=== PATIENT | female | born 1965 | race Caucasian/White ===

== ENCOUNTER 2016-11-23 22:31 | Emergency (ER) | payer OTHER ==
[2016-11-23] MEDS ORDERED: LORazepam 2 MG/ML SYRINGE IM STA (22:32)
[2016-11-23] MEDS ORDERED: diphenhydrAMINE 50 MG/ML 1 ML VIAL IM STA (22:32)
[2016-11-23] MEDS ORDERED: HALOPERIDOL LACTATE 5 MG/ML 1 ML VIAL IM STA (22:32)
--- NOTE | 2016-11-23 22:40 | ED ---
General Adult HPI - General Source: patient, police, EMS, RN notes reviewed Limitations: altered mental status (intoxicated) <Andrea Gorman - Last Filed: 11/24/16 01:15> <Constantin Banda - Last Filed: 11/24/16 09:02> - General Stated complaint: ETOH Time Seen by Provider: 11/23/16 22:31 - History of Present Illness Initial comments: 51-year-old female presenting for acute alcohol intoxication. Per EMS patient was found by her ex- passed out with multiple alcohol bottles by her. Patient drank about 4 - 24 ounce beers Patient arrived awake and alert and very combative. She was restrained by EMS with police escort. Patient with a mask and she was biting and spitting at staff. Patient is very intoxicated on initial exam and unable to provide reliable history. She is using multiple expletives and uncooperative at attempts to try to obtain history. Patient does state that she's had additional stressors recently which are causing her to drink, but she can't elaborate on this. (Andrea Gorman) - Related Data Home Medications Medication Instructions Recorded Confirmed Citalopram Hydrobromide [CeleXA] 40 mg PO DAILY 11/24/16 11/24/16 Diazepam [Valium] 5 mg PO BID PRN 11/24/16 11/24/16 HYDROcodone/APAP 10-325MG [[place] 1 tab PO TID PRN 11/24/16 11/24/16 10-325] Allergies Allergy/AdvReac Type Severity Reaction Status Date / Time No Known Allergies Allergy Verified 11/24/16 08:38 Review of Systems ROS Other: All systems not noted in ROS Statement are negative. <Andrea Gorman - Last Filed: 11/24/16 01:15> ROS Other: All systems not noted in ROS Statement are negative. <Constantin Banda - Last Filed: 11/24/16 09:02> ROS Statement: Those systems with pertinent positive or pertinent negative responses have been documented in the HPI. Past Medical History Past Medical History: Asthma History of Any Multi-Drug Resistant Organisms: None Reported Past Surgical History: Section, Hysterectomy Additional Past Surgical History / Comment(s): pain services procedures Past Anesthesia/Blood Transfusion Reactions: No Reported Reaction Past Psychological History: No Psychological Hx Reported Smoking Status: Current every day smoker Past Alcohol Use History: None Reported Past Drug Use History: None Reported <Andrea Gorman - Last Filed: 11/24/16 01:15> General Exam <Andrea Gorman - Last Filed: 11/24/16 01:15> <Constantin Banda - Last Filed: 11/24/16 09:02> - General Exam Comments Initial Comments: General: Awake and Alert. No acute distress. Appears intoxicated. Combative and uncooperative. Eyes: NIKKI, No scleral icterus. HENT: Atraumatic, normocephalic. Mucous membranes moist. Trachea midline. Neck: The neck is supple, there is no JVD. Cardiovascular: Regular rate and rhythm. No murmur, rub, or gallop is appreciated. Distal pulses intact. Respiratory: Lungs are clear to auscultation bilaterally. No wheezes, rales, rhonchi. No respiratory distress. Gastrointestinal: Soft, Nontender. No rebound or guarding. Non-distended. Musculoskeletal: No tenderness. Normal ROM. No gross deformity. No strength deficits. Neurological: There are no obvious motor or sensory deficits. Moves all extremities. Skin: Skin is warm and dry and no rashes or lesions are noted. Psychiatric: Patient is angry, labile affect. Appears intoxicated. (Andrea Gorman) Procedures - Restraint - Face to Face Restraint Occurrence 1 Patient's Immediate Situation: Endangers self safety, Endangers others' safety, Endangers staff safety, Violent behavior Patient's Reaction to the Intervention: Aggressive, Combative Patient's Medical & Behavioral Condition: Awake, Other (see comment) ( Intoxicated) Need to Continue or Terminate Restraint or Seclusion: Continue Face to Face Eval of Restraint Date: 11/23/16 Face to Face Eval of Restraint Time: 22:35 <Andrea Gorman - Last Filed: 11/24/16 01:15> <Constantin Banda - Last Filed: 11/24/16 09:02> - Restraint - Face to Face Restraint Occurrence 1 Patient's Immediate Situation - Comment: Patient arrived for acute alcohol intoxication, violent, biting and spitting at staff. (Andrea Gorman) Medical Decision Making - Lab Data Result diagrams: 11/23/16 23:25 11/23/16 23:25 <Andrea Gorman - Last Filed: 11/24/16 01:15> - Lab Data Result diagrams: 11/23/16 23:25 11/23/16 23:25 <Constantin Banda - Last Filed: 11/24/16 09:02> - Medical Decision Making 51-year-old female presenting for acute alcohol intoxication. Uncertain history as patient is combative and uncooperative with initial exam. She required chemical and physical restraints upon arrival. Face to face documentation done. Police and security and EMS were present during this initial evaluation. Patient with very labile affect during initial discussion. She did state at one point that she is very sad because of multiple stressors in her life recently. Plan for lab work. Lab work with stable CBC. BMP with mild abnormalities likely consistent with chronic alcohol abuse. LFTs are grossly stable. Tylenol and salicylates are negative. Patient was reevaluated and sleeping comfortably, easily arousable. Leather restraints were removed. Patient medically cleared when sober around 8 AM. Patient signed out to overnight physician pending sobriety and behavioral health evaluation when sober. (Andrea Gorman) Fidgeting female seen and evaluated, no LOC unable to call, not homicidal or suicidal, will be discharged home (Constantin Banda) - Lab Data Lab Results 11/23/16 11/23/16 Range/Units 23:25 23:25 WBC 8.5 (3.8-10.6) k/uL RBC 5.07 (3.80-5.40) m/uL Hgb 15.2 (11.4-16.0) gm/dL Hct 46.0 (34.0-46.0) % MCV 90.6 (80.0-100.0) fL MCH 30.0 (25.0-35.0) pg MCHC 33.2 (31.0-37.0) g/dL RDW 13.0 (11.5-15.5) % Plt Count 298 (150-450) k/uL Neutrophils % 55 % Lymphocytes % 36 % Monocytes % 4 % Eosinophils % 2 % Basophils % 1 % Neutrophils # 4.7 (1.3-7.7) k/uL Lymphocytes # 3.0 (1.0-4.8) k/uL Monocytes # 0.4 (0-1.0) k/uL Eosinophils # 0.1 (0-0.7) k/uL Basophils # 0.1 (0-0.2) k/uL Sodium 149 H (137-145) mmol/L Potassium 3.3 L (3.5-5.1) mmol/L Chloride 114 H (98-107) mmol/L Carbon Dioxide 19 L (22-30) mmol/L Anion Gap 16 mmol/L BUN 8 (7-17) mg/dL Creatinine 0.70 (0.52-1.04) mg/dL Est GFR (MDRD) Af Amer >60 (>60 ml/min/1.73 sqM) Est GFR (MDRD) Non-Af >60 (>60 ml/min/1.73 sqM) Glucose 114 H (74-99) mg/dL Calcium 9.4 (8.4-10.2) mg/dL Total Bilirubin 0.4 (0.2-1.3) mg/dL AST 40 H (14-36) U/L ALT 38 (9-52) U/L Alkaline Phosphatase 107 (38-126) U/L Total Protein 7.2 (6.3-8.2) g/dL Albumin 4.2 (3.5-5.0) g/dL Salicylates <1.0 mg/dL Acetaminophen <10.0 ug/mL Serum Alcohol 248 mg/dL Disposition <Andrea Gorman A - Last Filed: 11/24/16 01:15> <Constantin Banda - Last Filed: 11/24/16 09:02> Clinical Impression: Acute alcohol intoxication Disposition: HOME SELF-CARE Condition: Good Instructions: Alcohol Intoxication (ED) Referrals: Shaun Rodriguez MD [Primary Care Provider] - 1-2 days
[2016-11-23 23:34] LABS: Basophils # (A) 0.1 k/uL (0-0.2); Basophils % (A) 1 %; CH 30.8; CHCM 34.1; Eosinophils # (A) 0.1 k/uL (0-0.7); Eosinophils % (A) 2 %; HGB 15.2 gm/dL (11.4-16.0); Luc # (Auto) 0.16; Luc % (Auto) 2; Lymphocytes % (A) 36 %; MCHC 33.2 g/dL (31.0-37.0); MCV 90.6 fL (80.0-100.0); Mean Platelet Volume 8.2; Monocytes # (A) 0.4 k/uL (0-1.0); Monocytes % (A) 4 %; Neutrophils # (A) 4.7 k/uL (1.3-7.7); Neutrophils % (A) 55 %; RBC 5.07 m/uL (3.80-5.40); WBC 8.5 k/uL (3.8-10.6); WBC (Perox) 8.03
[2016-11-23 23:48] LABS: ALT 38 U/L (9-52); AST 40 U/L (14-36); Acetaminophen <10.0 ug/mL; Alkaline Phosphatase 107 U/L (38-126); Anion Gap 16 mmol/L; Blood Urea Nitrogen 8 mg/dL (7-17); Calcium 9.4 mg/dL (8.4-10.2); Carbon Dioxide 19 mmol/L (22-30); Chloride 114 mmol/L (98-107); Glucose 114 mg/dL (74-99); Non-African American GFR(MDRD) >60 (>60 ml/min/1.73 sqM); Potassium 3.3 mmol/L (3.5-5.1); Salicylate <1.0 mg/dL; Sodium 149 mmol/L (137-145); Total Bilirubin 0.4 mg/dL (0.2-1.3); Total Protein 7.2 g/dL (6.3-8.2)
[2016-11-23 23:50] LABS: Alcohol 248 mg/dL
[2016-11-24 08:34] VITALS: BP 108/60; PULSE 90; RESP 17; TEMP 98.1
== END 2016-11-24 10:26 | disposition home or self-care (01) ==
LOC: EC 22:31
DX: F10.120 Alcohol abuse with intoxication, uncomplicated (principal); F17.200 Nicotine dependence, unspecified, uncomplicated; Y90.8 Blood alcohol level of 240 mg/100 ml or more; Z79.899 Other long term (current) drug therapy
CPT/HCPCS: 36415; 80053; 85025; 83520 ×2; 80320; 99285; 96372 ×3; J2060; J1200; J1630

== ENCOUNTER 2017-01-07 22:21 | Emergency (ER) | payer OTHER ==
[2017-01-07 22:29] VITALS: TEMP 96.6
--- NOTE | 2017-01-07 22:50 | ED ---
General Adult HPI - General Chief complaint: Allergic Reaction Stated complaint: Allergic Reaction Time Seen by Provider: 01/07/17 22:25 Source: patient, EMS, RN notes reviewed, old records reviewed Mode of arrival: EMS - History of Present Illness Initial comments: This is a 51-year-old female here for evaluation. Patient will see her for possible ALLERGIC reaction. Patient took amoxicillin tonight for ear infection. This soon after she became dizzy. At this time patient's symptoms seem improved. No feeling of lightheadedness or pass out, no shortness of breath no facial swelling, no rash, no feelings of throat swelling - Related Data Home Medications Medication Instructions Recorded Confirmed Citalopram Hydrobromide [CeleXA] 40 mg PO DAILY 11/24/16 01/07/17 HYDROcodone/APAP 10-325MG [[place] 1 tab PO BID PRN 11/24/16 01/07/17 10-325] Albuterol Inhaler [Ventolin Hfa 1 - 2 puff INHALATION RT-Q6H PRN 01/07/17 Inhaler] Previous Rx's Medication Instructions Recorded Clarithromycin [Biaxin] 500 mg PO Q12HR #14 tablet 01/07/17 Allergies Allergy/AdvReac Type Severity Reaction Status Date / Time amoxicillin Allergy Dyspnea Verified 01/07/17 22:31 Review of Systems ROS Statement: Those systems with pertinent positive or pertinent negative responses have been documented in the HPI. ROS Other: All systems not noted in ROS Statement are negative. Past Medical History Past Medical History: Asthma History of Any Multi-Drug Resistant Organisms: None Reported Past Surgical History: Section, Hysterectomy Additional Past Surgical History / Comment(s): pain services procedures Past Anesthesia/Blood Transfusion Reactions: No Reported Reaction Past Psychological History: Depression Smoking Status: Current some day smoker Past Alcohol Use History: None Reported Past Drug Use History: None Reported General Exam General appearance: alert, in no apparent distress Head exam: Present: atraumatic, normocephalic, normal inspection Eye exam: Present: normal appearance, PERRL, EOMI. Absent: scleral icterus, conjunctival injection, periorbital swelling ENT exam: Present: normal exam, mucous membranes moist Neck exam: Present: normal inspection. Absent: tenderness, meningismus, lymphadenopathy Respiratory exam: Present: normal lung sounds bilaterally. Absent: respiratory distress, wheezes, rales, rhonchi, stridor Cardiovascular Exam: Present: regular rate, normal rhythm, normal heart sounds. Absent: systolic murmur, diastolic murmur, rubs, gallop, clicks GI/Abdominal exam: Present: soft, normal bowel sounds. Absent: distended, tenderness, guarding, rebound, rigid Extremities exam: Present: normal inspection, full ROM, normal capillary refill. Absent: tenderness, pedal edema, joint swelling, calf tenderness Back exam: Present: normal inspection Neurological exam: Present: alert, oriented X3, CN II-XII intact Psychiatric exam: Present: normal affect, normal mood Skin exam: Present: warm, dry, intact, normal color. Absent: rash Course Vital Signs 01/07/17 22:22 Temperature 96.6 F L Pulse Rate 85 Respiratory 20 Rate Blood Pressure 95/58 O2 Sat by Pulse 96 Oximetry - Reevaluation(s) Reevaluation #1: 01/07/17 23:11 Patient's vital signs are normal, stable, will switch patient's antibiotic and discharged home Medical Decision Making - Medical Decision Making 51 female here with ear infection, likely ALLERGIC reaction or adverse effects to amoxicillin, will switch antibiotic and patient can be discharged home Disposition Clinical Impression: Allergic reaction, Medication reaction, Adverse reaction to drug Disposition: HOME SELF-CARE Condition: Good Instructions: Dizziness (ED) Prescriptions: Clarithromycin [Biaxin] 500 mg PO Q12HR #14 tablet Referrals: Shaun Rodriguez MD [Primary Care Provider] - 1-2 days
[2017-01-07] MEDS ORDERED: FAMOTIDINE 20 MG/2 ML VIAL IV STA (23:06)
[2017-01-07] MEDS ORDERED: CLARITHROMYCIN 500 MG TAB PO STA (23:06)
[2017-01-07] MEDS ORDERED: methylPREDNISolone SOD SUCCI 125 MG/2 ML VIAL IV STA (23:06)
[2017-01-07] MEDS ORDERED: SODIUM CHLORIDE 0.9% 500 ML IV STA (23:06)
[2017-01-07] MEDS ORDERED: diphenhydrAMINE 50 MG/ML 1 ML VIAL IVP STA (23:06)
[2017-01-07 23:41] VITALS: RESP 18
[2017-01-08 00:06] VITALS: BP 113/61; PULSE 83
== END 2017-01-08 00:28 | disposition home or self-care (01) ==
LOC: EC 22:21
DX: R42 Dizziness and giddiness (principal); T36.0X5A Adverse effect of penicillins, initial encounter; F32.9 Major depressive disorder, single episode, unspecified; F17.200 Nicotine dependence, unspecified, uncomplicated; Z79.899 Other long term (current) drug therapy; Z88.0 Allergy status to penicillin
CPT/HCPCS: 99284; 96374; 96375 ×2; 96361; J1200; J2930

== ENCOUNTER → 2017-05-17 | Outpatient (CLI) | payer OTHER ==
--- NOTE | 2017-05-17 14:00 | XR ---
Thoracic spine HISTORY: Pain 3 views of the thoracic spine on 4 images correlated to prior exam 10/18/2009 Mild spinal curvature is again noted. Surgical clips present in the right upper quadrant. Multilevel thoracic spondylosis is present. Disc spaces are maintained. Thoracic vertebral bodies show preserved height and bone mineralization. IMPRESSION: Spinal curvature, thoracic spondylosis, findings similar to prior exam
== END | disposition home or self-care (01) ==
LOC: RADXRMAIN 11:25
PROVIDERS: ATTEND Family Medicine
DX: M47.814 Spondylosis without myelopathy or radiculopathy, thoracic region (principal); M43.8X4 Other specified deforming dorsopathies, thoracic region
CPT/HCPCS: 72072

== ENCOUNTER 2017-07-25 17:30 | Emergency (ER) | payer OTHER ==
[2017-07-25 18:09] LABS: Basophils # (A) 0.1 k/uL (0-0.2); Basophils % (A) 1 %; Eosinophils # (A) 0.3 k/uL (0-0.7); Eosinophils % (A) 3 %; HCT 41.1 % (34.0-46.0); Lymphocytes % (A) 32 %; MCH 30.2 pg (25.0-35.0); MCV 88.7 fL (80.0-100.0); Mean Platelet Volume 7.9; Monocytes # (A) 0.3 k/uL (0-1.0); Monocytes % (A) 3 %; Neutrophils # (A) 5.4 k/uL (1.3-7.7); Neutrophils % (A) 58 %; Platelet Count 303 k/uL (150-450); RBC 4.64 m/uL (3.80-5.40); RDW 13.2 % (11.5-15.5); WBC 9.3 k/uL (3.8-10.6)
[2017-07-25 18:19] LABS: ALT 40 U/L (9-52); AST 61 U/L (14-36); Alkaline Phosphatase 110 U/L (38-126); Amylase 58 U/L (30-110); Anion Gap 9 mmol/L; Blood Urea Nitrogen 13 mg/dL (7-17); Carbon Dioxide 27 mmol/L (22-30); Chloride 108 mmol/L (98-107); Glucose 124 mg/dL (74-99); Lipase 71 U/L (23-300); Potassium 3.9 mmol/L (3.5-5.1); Sodium 144 mmol/L (137-145); Total Bilirubin 0.5 mg/dL (0.2-1.3); Total Protein 6.7 g/dL (6.3-8.2)
--- NOTE | 2017-07-25 18:20 | XR ---
EXAMINATION TYPE: XR chest 2V DATE OF EXAM: 07/25/2017 COMPARISON: 10/28/2009 HISTORY: Chest pain TECHNIQUE: Frontal and lateral views of the chest are obtained. FINDINGS: There is no focal air space opacity, pleural effusion, or pneumothorax seen. The cardiac silhouette size is within normal limits. The osseous structures are intact. IMPRESSION: No acute cardiopulmonary process.
[2017-07-25 18:21] LABS: Creatine Kinase 64 U/L (30-135)
[2017-07-25 18:32] LABS: D-Dimer 0.35 mg/L FEU (<0.60)
[2017-07-25 18:33] LABS: Creatine Kinase MB 0.4 ng/mL (0.0-2.4); Troponin I <0.012 ng/mL (0.000-0.034)
[2017-07-25 18:35] VITALS: BP 130/56; PULSE 64; RESP 17
[2017-07-25 18:36] LABS: INR 1.3 (<1.2); Partial Thromboplastin Time 24.3 sec (22.0-30.0); Prothrombin Time 12.1 sec (9.0-12.0)
--- NOTE | 2017-07-25 19:20 | ED ---
General Adult HPI - General Chief complaint: Chest Pain Stated complaint: Chest presure Time Seen by Provider: 07/25/17 17:53 Source: patient, RN notes reviewed, old records reviewed Mode of arrival: ambulatory Limitations: no limitations - History of Present Illness Initial comments: 51-year-old female presents for evaluation of back pain, chest pain, and bilateral ankle pain. Patient has history of chronic back pain. She has a pain specialist who prescribes her [place] for this pain. She has been taking her [place] with minimal relief. Today patient developed back pain that traveled to her chest. Denied any nausea or vomiting. Denies shortness of breath. Denied fever or cough. Patient describes the pain as chest and epigastric pain. She does have history of gastric reflux and takes medication for this on occasion. Patient is also complaining of bilateral ankle pain which is been present for several weeks. No swelling. No calf tenderness. No lower extremity weakness. No loss of bowel or bladder function. - Related Data Home Medications Medication Instructions Recorded Confirmed Citalopram Hydrobromide [CeleXA] 40 mg PO DAILY 11/24/16 07/25/17 HYDROcodone/APAP 10-325MG [[place] 1 tab PO TID 11/24/16 07/25/17 10-325] Albuterol Inhaler [Ventolin Hfa 1 - 2 puff INHALATION RT-Q6H PRN 01/07/17 Inhaler] Ibuprofen [Motrin] 800 mg PO TID PRN 07/25/17 07/25/17 Omeprazole [PriLOSEC] 20 mg PO AC-BRKFST 07/25/17 07/25/17 Allergies Allergy/AdvReac Type Severity Reaction Status Date / Time amoxicillin Allergy Dyspnea Verified 07/25/17 18:34 sulfamethoxazole Allergy Unknown Verified 07/25/17 18:34 [From Bactrim] trimethoprim [From Bactrim] Allergy Unknown Verified 07/25/17 18:34 Review of Systems ROS Statement: Those systems with pertinent positive or pertinent negative responses have been documented in the HPI. ROS Other: All systems not noted in ROS Statement are negative. Past Medical History Past Medical History: Asthma Additional Past Medical History / Comment(s): DDD, chronic back pain History of Any Multi-Drug Resistant Organisms: None Reported Past Surgical History: Section, Hysterectomy Additional Past Surgical History / Comment(s): pain services procedures Past Anesthesia/Blood Transfusion Reactions: No Reported Reaction Past Psychological History: Depression Smoking Status: Current some day smoker Past Alcohol Use History: None Reported Past Drug Use History: None Reported General Exam Limitations: no limitations General appearance: alert, in no apparent distress Head exam: Present: atraumatic, normocephalic Eye exam: Present: normal appearance, PERRL ENT exam: Present: normal exam, mucous membranes dry Neck exam: Present: normal inspection. Absent: tenderness, meningismus Respiratory exam: Present: normal lung sounds bilaterally. Absent: respiratory distress, wheezes Cardiovascular Exam: Present: regular rate, normal rhythm, normal heart sounds. Absent: rubs GI/Abdominal exam: Present: soft. Absent: distended, tenderness, guarding, rebound Extremities exam: Present: normal inspection, normal capillary refill, other ( Bilateral DP and PT pulses symmetric). Absent: pedal edema, joint swelling, calf tenderness Back exam: Present: tenderness (Thoracic paraspinal tenderness) Neurological exam: Present: alert, oriented X3, CN II-XII intact. Absent: motor sensory deficit Psychiatric exam: Present: normal affect, normal mood Skin exam: Present: warm, dry, intact. Absent: cyanosis, diaphoretic Course Vital Signs 07/25/17 07/25/17 17:32 18:34 Temperature 98.3 F Pulse Rate 81 64 Respiratory 18 17 Rate Blood Pressure 142/65 130/56 O2 Sat by Pulse 100 98 Oximetry EKG Findings - EKG Comments: EKG Findings:: EKG shows normal sinus rhythm, ventricular rate 68, NM 156, castration 96, QTC 414, no ST segment elevation, no T-wave abnormality no signs of acute ischemia Medical Decision Making - Medical Decision Making 51-year-old female presenting with multiple pain complaints. She does have history of chronic pain some of these complains 2. Be chronic in nature. Main complaints are back pain, epigastric and chest pain as well as bilateral ankle pain which is been present for several weeks. On examination, there is no swelling or signs of infection the ankles. Chest is clear, pulses are symmetric. No epigastric or abdominal tenderness. Vitals are stable. White blood cell count 9.3, hemoglobin 14.0, d-dimer is negative at 0.35. Lites within normal limits. Symptoms have been present for several days to weeks and troponin is negative. Lipase is normal 71. Chest x-ray shows no acute findings. Symptoms likely related to chronic pain. She does have a contract with pain specialist. She will follow-up with his physician as well as her primary care physician. - Lab Data Result diagrams: 07/25/17 17:55 07/25/17 17:55 Lab Results 07/25/17 07/25/17 07/25/17 Range/Units 17:55 17:55 17:55 WBC 9.3 (3.8-10.6) k/uL RBC 4.64 (3.80-5.40) m/uL Hgb 14.0 (11.4-16.0) gm/dL Hct 41.1 (34.0-46.0) % MCV 88.7 (80.0-100.0) fL MCH 30.2 (25.0-35.0) pg MCHC 34.0 (31.0-37.0) g/dL RDW 13.2 (11.5-15.5) % Plt Count 303 (150-450) k/uL Neutrophils % 58 % Lymphocytes % 32 % Monocytes % 3 % Eosinophils % 3 % Basophils % 1 % Neutrophils # 5.4 (1.3-7.7) k/uL Lymphocytes # 3.0 (1.0-4.8) k/uL Monocytes # 0.3 (0-1.0) k/uL Eosinophils # 0.3 (0-0.7) k/uL Basophils # 0.1 (0-0.2) k/uL PT (9.0-12.0) sec INR (<1.2) APTT (22.0-30.0) sec D-Dimer (<0.60) mg/L FEU Sodium 144 (137-145) mmol/L Potassium 3.9 (3.5-5.1) mmol/L Chloride 108 H (98-107) mmol/L Carbon Dioxide 27 (22-30) mmol/L Anion Gap 9 mmol/L BUN 13 (7-17) mg/dL Creatinine 0.69 (0.52-1.04) mg/dL Est GFR (MDRD) Af Amer >60 (>60 ml/min/1.73 sqM) Est GFR (MDRD) Non-Af >60 (>60 ml/min/1.73 sqM) Glucose 124 H (74-99) mg/dL Calcium 10.0 (8.4-10.2) mg/dL Magnesium 2.0 (1.6-2.3) mg/dL Total Bilirubin 0.5 (0.2-1.3) mg/dL AST 61 H (14-36) U/L ALT 40 (9-52) U/L Alkaline Phosphatase 110 (38-126) U/L Total Creatine Kinase 64 (30-135) U/L CK-MB (CK-2) 0.4 (0.0-2.4) ng/mL CK-MB (CK-2) Rel Index 0.6 Troponin I <0.012 (0.000-0.034) ng/mL NT-Pro-B Natriuret Pep pg/mL Total Protein 6.7 (6.3-8.2) g/dL Albumin 4.0 (3.5-5.0) g/dL Amylase 58 (30-110) U/L Lipase 71 (23-300) U/L 07/25/17 07/25/17 Range/Units 17:55 17:55 WBC (3.8-10.6) k/uL RBC (3.80-5.40) m/uL Hgb (11.4-16.0) gm/dL Hct (34.0-46.0) % MCV (80.0-100.0) fL MCH (25.0-35.0) pg MCHC (31.0-37.0) g/dL RDW (11.5-15.5) % Plt Count (150-450) k/uL Neutrophils % % Lymphocytes % % Monocytes % % Eosinophils % % Basophils % % Neutrophils # (1.3-7.7) k/uL Lymphocytes # (1.0-4.8) k/uL Monocytes # (0-1.0) k/uL Eosinophils # (0-0.7) k/uL Basophils # (0-0.2) k/uL PT 12.1 H (9.0-12.0) sec INR 1.3 H (<1.2) APTT 24.3 (22.0-30.0) sec D-Dimer 0.35 (<0.60) mg/L FEU Sodium (137-145) mmol/L Potassium (3.5-5.1) mmol/L Chloride (98-107) mmol/L Carbon Dioxide (22-30) mmol/L Anion Gap mmol/L BUN (7-17) mg/dL Creatinine (0.52-1.04) mg/dL Est GFR (MDRD) Af Amer (>60 ml/min/1.73 sqM) Est GFR (MDRD) Non-Af (>60 ml/min/1.73 sqM) Glucose (74-99) mg/dL Calcium (8.4-10.2) mg/dL Magnesium (1.6-2.3) mg/dL Total Bilirubin (0.2-1.3) mg/dL AST (14-36) U/L ALT (9-52) U/L Alkaline Phosphatase (38-126) U/L Total Creatine Kinase (30-135) U/L CK-MB (CK-2) (0.0-2.4) ng/mL CK-MB (CK-2) Rel Index Troponin I (0.000-0.034) ng/mL NT-Pro-B Natriuret Pep 45 pg/mL Total Protein (6.3-8.2) g/dL Albumin (3.5-5.0) g/dL Amylase (30-110) U/L Lipase (23-300) U/L Disposition Clinical Impression: Chronic back pain, Chest pain Disposition: HOME SELF-CARE Condition: Good Instructions: Chronic Back Pain (ED), Chest Pain (ED) Referrals: Shaun Rodriguez MD [Primary Care Provider] - 1-2 days Time of Disposition: 19:16
[2017-07-25 19:27] VITALS: TEMP 98.6
== END 2017-07-25 19:26 | disposition home or self-care (01) ==
LOC: EC 17:30
DX: R07.89 Other chest pain (principal); M54.9 Dorsalgia, unspecified; G89.29 Other chronic pain; R10.13 Epigastric pain; M25.572 Pain in left ankle and joints of left foot; M25.571 Pain in right ankle and joints of right foot; F32.9 Major depressive disorder, single episode, unspecified; F17.200 Nicotine dependence, unspecified, uncomplicated; Z79.899 Other long term (current) drug therapy; Z79.891 Long term (current) use of opiate analgesic; Z88.0 Allergy status to penicillin; Z88.2 Allergy status to sulfonamides
CPT/HCPCS: 36415; 71046; 80053; 82150; 82550; 82553; 83690; 83735; 83880; 84484; 85025; 85379; 85610; 85730; 93005; 99285

== ENCOUNTER 2018-04-15 22:08 | Emergency (ER) | payer OTHER ==
[2018-04-15 22:18] VITALS: BP 122/78; PULSE 77; RESP 18; TEMP 98
--- NOTE | 2018-04-15 23:16 | ED ---
Eye Problem HPI - General Chief complaint: Eye Problems Stated complaint: Rt eye pain Time Seen by Provider: 04/15/18 22:42 Source: patient Mode of arrival: ambulatory Limitations: no limitations - History of Present Illness Initial comments: 52-year-old female denies past medical history presents chief complaint of right upper lid erythema. Patient states that she noticed right lip upper lid erythema and less tender to palpation earlier today. She presents for evaluation. Patient denies any trauma or injury to the right eye, eye discharge , visual changes, photophobia, foreign body sensation, diplopia, conjunctival injection, fever, chills, night sweats, headache or any other associated symptoms. Upon arrrival pt VS stable. Pt appears well. Remainder of ROS (-) including shortness of breath, chest pain, back pain, abdominal pain, nausea or vomiting, numbness or tingling, dysuria or hematuria, constipation or diarrhea, or any other complaints. - Related Data Home Medications Medication Instructions Recorded Confirmed Citalopram Hydrobromide [CeleXA] 40 mg PO DAILY 11/24/16 07/25/17 HYDROcodone/APAP 10-325MG [[place] 1 tab PO TID 11/24/16 07/25/17 10-325] Albuterol Inhaler [Ventolin Hfa 1 - 2 puff INHALATION RT-Q6H PRN 01/07/17 Inhaler] Ibuprofen [Motrin] 800 mg PO TID PRN 07/25/17 07/25/17 Omeprazole [PriLOSEC] 20 mg PO AC-BRKFST 07/25/17 07/25/17 Previous Rx's Medication Instructions Recorded Clindamycin [Cleocin] 450 mg PO Q8H 7 Days #21 capsule 04/15/18 Allergies Allergy/AdvReac Type Severity Reaction Status Date / Time amoxicillin Allergy Dyspnea Verified 04/15/18 22:18 sulfamethoxazole Allergy Unknown Verified 04/15/18 22:18 [From Bactrim] trimethoprim [From Bactrim] Allergy Unknown Verified 04/15/18 22:18 Review of Systems ROS Statement: Those systems with pertinent positive or pertinent negative responses have been documented in the HPI. ROS Other: All systems not noted in ROS Statement are negative. Constitutional: Denies: fever, chills, night sweats Eyes: Reports: as per HPI. Denies: eye discharge, vision change ENT: Denies: ear pain, throat pain Respiratory: Denies: cough, dyspnea Cardiovascular: Denies: chest pain, palpitations, dyspnea on exertion, orthopnea Endocrine: Denies: fatigue Gastrointestinal: Denies: abdominal pain, nausea, diarrhea, constipation Genitourinary: Denies: urgency, dysuria Musculoskeletal: Denies: back pain Skin: Denies: rash Past Medical History Past Medical History: Asthma Additional Past Medical History / Comment(s): DDD, chronic back pain History of Any Multi-Drug Resistant Organisms: None Reported Past Surgical History: Section, Hysterectomy Additional Past Surgical History / Comment(s): pain services procedures Past Anesthesia/Blood Transfusion Reactions: No Reported Reaction Past Psychological History: Depression Smoking Status: Current every day smoker Past Alcohol Use History: None Reported Past Drug Use History: None Reported General Exam - General Exam Comments Initial Comments: General: The patient is awake and alert, in no distress, and does not appear acutely ill. Eye: Pupils are equal, round and reactive to light, extra-ocular movements are intact. No pain with EOM. No nystagmus. No conjugate gaze or APD. No photophobia. VF intact to confrontation b/l. There is normal conjunctiva bilaterally. No signs of icterus. Ears, nose, mouth and throat: There is very mild swelling and erythema of the right upper eyelid. Pain to palpation. Small internal hordeolum upon right upper internal lid exam. There are moist mucous membranes and no oral lesions. Neck: The neck is supple, there is no tenderness or JVD. Cardiovascular: There is a regular rate and rhythm. No murmur, rub or gallop is appreciated. Respiratory: Lungs are clear to auscultation, respirations are non-labored, breath sounds are equal. No wheezes, stridor, rales, or rhonchi. Musculoskeletal: Normal ROM, no tenderness. Strength 5/5. Sensation intact. Pulses equal bilaterally 2+. Neurological: A&O x 3. CN II-XII intact, There are no obvious motor or sensory deficits. Coordination appears grossly intact. Speech is normal. Skin: Skin is warm and dry and no rashes or lesions are noted. Psychiatric: Cooperative, appropriate mood & affect, normal judgment. Limitations: no limitations Course Vital Signs 04/15/18 22:16 Temperature 98.0 F Pulse Rate 77 Respiratory 18 Rate Blood Pressure 122/78 O2 Sat by Pulse 98 Oximetry Medical Decision Making - Medical Decision Making PE consistent with internal hordeolum there is some outer upper lid erythema/ edema concerning risk for infection, possible early periorbital cellulitis. No signs or symptoms concerning for orbital cellulitis at this time. Pt given prescription for antibiotics if erythema spreads for treatment of possible periorbital cellulitis, however I feel PE findings most consistent with internal hordeloum. Warm compresses discussed with patient. Return parameters discussed in detail patient and . Case discussed with Dr. Polo. At this time I feel pt is stable for d/c with primary care f/u in 1-2 days. Pt denied questions at this time d/c in stable condition. Disposition Clinical Impression: Hordeolum internum right upper eyelid Disposition: HOME SELF-CARE Condition: Good Additional Instructions: Please use hot compresses for eye, three times a day. If redness appears to be worsening in the next 1-2 days please take medication as discussed. Please follow-up with family doctor in the next 2 days. Please return to emergency room if the symptoms increase or worsen or for any other concerns. Prescriptions: Clindamycin [Cleocin] 450 mg PO Q8H 7 Days #21 capsule Is patient prescribed a controlled substance at d/c from ED?: No Referrals: Shaun Rodriguez MD [Primary Care Provider] - 1-2 days Time of Disposition: 23:16
== END 2018-04-15 23:25 | disposition home or self-care (01) ==
LOC: EC 22:08
DX: H00.021 Hordeolum internum right upper eyelid (principal); J45.909 Unspecified asthma, uncomplicated; F32.9 Major depressive disorder, single episode, unspecified; F17.200 Nicotine dependence, unspecified, uncomplicated; Z79.891 Long term (current) use of opiate analgesic; Z79.899 Other long term (current) drug therapy; Z88.0 Allergy status to penicillin; Z88.2 Allergy status to sulfonamides
CPT/HCPCS: 99283

== ENCOUNTER → 2018-12-14 | Outpatient (CLI) | payer OTHER ==
--- NOTE | 2018-12-15 17:37 | MR ---
EXAMINATION TYPE: MR lumbar spine wo con DATE OF EXAM: 12/14/2018 COMPARISON: None HISTORY: Pain, spondylolithesis TECHNIQUE: Multiplanar, multisequence images of the lumbar spine were acquired. FINDINGS: Multilevel disc desiccation is seen with degenerative endplate change. Small anterior osteo phytes are present. Facet arthropathy is also present at multiple levels as well as ligamentum flavum buckling. Incidentally noted pancreatic ductal dilatation up to 4 mm. MRCP could be performed for fu rther evaluation. Pancreas and pancreatic duct are not entirely visualized. There appears to be commo n bile duct dilatation as well as to 1.2 cm. And indeterminant T2 hyperintense and T1 isointense righ t upper pole renal lesion measures 8 mm and is too small to accurately characterize although could be better characterized with three-phase enhanced CT. There is a T1 hypointense and T2 hypointense lesion of the L3 vertebral body with some internal T1 hy perintensity therefore this likely represents an atypical hemangioma as this is not markedly hypointe nse on T1. Slightly mottled bone marrow signal is seen throughout although within normal limits. Conu s medullaris is unremarkable terminating at L2. Annular tear is seen at L2-L3. Annular tear is also s een at L1-L2. Vertebral body heights are maintained. There is very minimal retrolisthesis of L2 on L3 and L3 on L4. L1-L2: There is a central annular tear with broad-based disc bulge and mild facet arthropathy. No res ultant spinal canal stenosis nor neural foraminal narrowing. L2-L3: There is a broad-based disc bulge, central annular tear, and facet arthropathy resulting in ve ry minimal bilateral neural foraminal narrowing without spinal canal stenosis. L3-L4: There is a broad-based disc bulge and facet arthropathy. The disc bulges slightly right eccent bassem resulting in mild to moderate right neural foraminal narrowing and mild left neural foraminal jo ann rowing. No spinal canal stenosis. L4-L5: There is pronounced facet arthropathy, ligamentum flavum buckling, and a large broad-based dis c bulge creating severe spinal canal stenosis that is on axial T2 nonfat sat image 8 as there is narr owing of the spinal canal and both the anterior and transverse dimension. These findings also result in mild to moderate bilateral neural foraminal narrowing. There is buckling of the distal nerve root secondary to the severe spinal canal stenosis. L5-S1: There is a left eccentric broad-based disc bulge and left lateral disc herniation as well as f acet arthropathy creating severe left neural foraminal narrowing and exiting L5 nerve root impingemen t and mild right neural foraminal narrowing with the disc fragment abutting the exiting nerve root. T here is also ligamentum flavum buckling and facet arthropathy narrowing the spinal canal in a transve rse dimension mildly. IMPRESSION: 1. Left lateral disc herniation and eccentric disc bulge at L5-S1 in combination with facet arthropat hy and ligamentum flavum buckling create severe left neural foraminal narrowing and L5 nerve root imp ingement as well as mild spinal canal stenosis in a transverse dimension. 2. Broad-based disc bulge, ligamentum flavum buckling and facet arthropathy creates severe spinal can al stenosis at L4-L5 with nerve root buckling and mild to moderate bilateral neural foraminal narrowi ng. 3. Multilevel malalignment is likely on a degenerative basis with no bone marrow edema or vertebral b enrique height loss. 4. Degenerative disc disease throughout the lumbar spine is moderate with annular tear is seen at L1- L2 and L2-L3 and multilevel variable degree neural foraminal narrowing. 5. Incidentally seen mild pancreatic ductal prominence and common bile duct dilatation. MRCP could fu rther evaluate these findings.
== END | disposition home or self-care (01) ==
LOC: RADMRIMAIN 18:53
PROVIDERS: ATTEND Neurological Surgery
DX: M48.061 Spinal stenosis, lumbar region without neurogenic claudication (principal); M48.07 Spinal stenosis, lumbosacral region; M51.26 Other intervertebral disc displacement, lumbar region; M51.27 Other intervertebral disc displacement, lumbosacral region; M46.96 Unspecified inflammatory spondylopathy, lumbar region; M46.97 Unspecified inflammatory spondylopathy, lumbosacral region; M24.28 Disorder of ligament, vertebrae
CPT/HCPCS: 72148

== ENCOUNTER → 2019-02-01 | Outpatient (CLI) | payer OTHER ==
--- NOTE | 2019-02-01 10:33 | US ---
EXAMINATION TYPE: US venous doppler duplex LE RT DATE OF EXAM: 02/01/2019 10:08 AM COMPARISON: NONE CLINICAL HISTORY: M79.604 Pain in right leg. Pain right leg for 3 weeks SIDE PERFORMED: right TECHNIQUE: The lower extremity deep venous system is examined utilizing real time linear array sonog leti with graded compression, doppler sonography and color-flow sonography. VESSELS IMAGED: External Iliac Vein (EIV) Common Femoral Vein Deep Femoral Vein Greater Saphenous Vein * Femoral Vein Popliteal Vein Small Saphenous Vein * Proximal Calf Veins (* superficial vessels) Right Leg: No evidence of DVT Grayscale, color doppler, spectral doppler imaging performed of the deep veins of the right lower ext remity. There is normal flow, compressibility, vascular waveforms. IMPRESSION: No ultrasound evidence for acute DVT in the right lower extremity.
== END | disposition home or self-care (01) ==
LOC: RADUSWWP 09:30
PROVIDERS: ATTEND Internal Medicine
DX: M79.604 Pain in right leg (principal)

== ENCOUNTER → 2019-05-25 | Outpatient (CLI) | payer OTHER ==
--- NOTE | 2019-05-25 14:53 | XR ---
EXAM TYPE: LUMBAR SPINE X RAY SERIES COMPARISON: NONE HISTORY: Pain TECHNIQUE: 5 views are submitted. FINDINGS: Alignment is anatomic. The pedicles are intact. The transverse processes are intact. Postsurgical changes involving the lumbosacral junction. There is minimal anterolisthesis of L4 on 5 and L5 on S1. Surgical clips in the right upper quadrant. Diffuse osteopenia noted. There is degenerative disc dis ease and spurring at all levels. Moderate changes at L3-L4. Mild changes at the L1-2 and L2-L3. IMPRESSION: 1. Postsurgical change with minimal anterolisthesis L4 on 5 and L5 and S1. 2. Degenerative disc disease L3-L4.
--- NOTE | 2019-05-25 14:56 | XR ---
EXAMINATION TYPE: XR thoracic spine complete DATE OF EXAM: 05/25/2019 COMPARISON: NONE HISTORY: Back pain Alignment is anatomic. There is no compression deformities. Vertebral body height and disc interspa miek are maintained. Curvature the spine with hypertrophic changes and multilevel degenerative disc d isease. IMPRESSION: 1. Mild multilevel degenerative disc disease. Correlate with MRI as clinically warranted..
== END | disposition home or self-care (01) ==
LOC: RADXRMAIN 14:24
PROVIDERS: ATTEND Family Medicine
DX: M51.34 Other intervertebral disc degeneration, thoracic region (principal); M51.36 Other intervertebral disc degeneration, lumbar region; M43.16 Spondylolisthesis, lumbar region; M43.17 Spondylolisthesis, lumbosacral region; Z98.890 Other specified postprocedural states
CPT/HCPCS: 72072; 72110

== ENCOUNTER → 2019-06-30 | Outpatient (CLI) | payer OTHER ==
--- NOTE | 2019-06-30 07:56 | MR ---
EXAMINATION TYPE: MR thoracic spine wo con DATE OF EXAM: 06/30/2019 COMPARISON: None HISTORY: Back pain CONTRAST: Performed utilizing 0 mL intravenous Gadavist gadolinium contrast. TECHNIQUE: Multiplanar, multiecho imaging on a 3.0 Patricia magnet is performed through the thoracic spi ne. Spinal cord maintains normal signal through its visualized course. Vertebral body alignment is normal. Vertebral body heights are preserved. Disc heights are preserved. Disc hydration levels are preserved. No spinal canal stenosis is evident. At T11-12 there is some mild posterior lateral thecal sac contact from facet hypertrophy. No cord con tact or stenosis is present. IMPRESSIONS: 1. Mild facet degenerative change lower thoracic spine. 2. No suspicious acute changes
== END | disposition home or self-care (01) ==
LOC: RADMRIMAIN 07:08
PROVIDERS: ATTEND Neurological Surgery
DX: M47.814 Spondylosis without myelopathy or radiculopathy, thoracic region (principal)
CPT/HCPCS: 72146

== ENCOUNTER → 2019-07-15 | Outpatient (CLI) | payer OTHER ==
--- NOTE | 2019-07-16 12:05 | MR ---
EXAMINATION TYPE: MR cervical spine wo con DATE OF EXAM: 07/15/2019 COMPARISON: None HISTORY: 53-year-old female with Neck pain TECHNIQUE: Multiplanar, multisequence images of the cervical spine were acquired. FINDINGS: No craniocervical junction abnormality, predental space widening, or prevertebral soft tissue swellin g. Reversal of the normal cervical lordosis but with preserved alignment. Mild to moderate degenerative disc disease with variable disc desiccation and minimal bulging discs a re present throughout. Tiny posterior annular fissure at C6-C7. Some heterogeneous marrow signal without suspicious bone marrow placement. Facet and uncovertebral joint arthropathy throughout, greater on the right. At C2-C3, facet arthropathy without significant canal or foraminal stenosis. At C3-C4, facet arthropathy without significant canal or foraminal stenosis. At C4-C5, facet and uncovertebral joint arthropathy and mild posterior disc bulge. This corresponds t o the apex of the reversed cervical lordosis. Changes result in mild overall narrowing of the spinal canal with abutment and slight flattening of the ventral cord. No myelopathic cord signal change. Daja nges result in moderate left and mild right neuroforaminal narrowing. At C5-C6, facet and uncovertebral joint arthropathy. Changes result in moderate bilateral neuroforami nal stenosis without spinal canal stenosis. At C6-C7, mild facet arthropathy. No significant canal or foraminal stenosis. At C7-T1, facet arthropathy with a mild to moderate right neuroforaminal stenosis. No spinal canal st enosis. Prominent bilateral palatine and lingual tonsillar hypertrophy. IMPRESSION: 1. Reversal of the normal cervical lordosis with mild to moderate degenerative disc disease and scatt ered facet and uncovertebral joint arthropathy. 2. Changes result in mild spinal canal stenosis at C4-C5 with abutment and slight flattening of the v entral cord. No myelopathic cord signal change. 3. Variable [id number] neuroforaminal stenoses as outlined above, moderate on both sides at C5- C6 and moderate on the left at C4-C5. 4. Prominent bilateral palatine and lingual tonsillar hypertrophy.
== END | disposition home or self-care (01) ==
LOC: RADMRIMAIN 12:41
PROVIDERS: ATTEND Family Medicine
DX: M48.02 Spinal stenosis, cervical region (principal); M50.30 Other cervical disc degeneration, unspecified cervical region; M46.92 Unspecified inflammatory spondylopathy, cervical region
CPT/HCPCS: 72141

== ENCOUNTER 2019-08-05 10:39 | Emergency (ER) | payer OTHER ==
[2019-08-05 10:52] VITALS: RESP 18
[2019-08-05] MEDS ORDERED: IPRATROPIUM-ALBUTEROL 3 ML NEB INHALATION STA (11:09)
[2019-08-05] MEDS ORDERED: ONDANSETRON ODT 4 MG TAB PO STA (11:09)
[2019-08-05] MEDS ORDERED: ACETAMINOPHEN TAB 500 MG TAB PO STA (11:09)
--- NOTE | 2019-08-05 11:33 | ED ---
General Adult HPI - General Chief complaint: Fever Stated complaint: Cough,Headache,Fever Time Seen by Provider: 08/05/19 10:53 Source: patient, RN notes reviewed Mode of arrival: ambulatory Limitations: no limitations - History of Present Illness Initial comments: 53-year-old female with a past medical history of asthma presents to the emergency department for chief complaint of "flu symptoms." Patient states that she has had a fever for about 24 hours. States this started yesterday morning. Patient states that along with the fever she has had cough congestion. States cough is productive. Patient has a history of asthma and has been using her inhaler. Denies any shortness of breath. Denies chest pain. Patient also has a headache. Last Motrin this morning. Denies any neck pain or stiffness. Patient does admit to nausea as well and did vomit when she took DayQuil today. She denies any abdominal pain whatsoever.Patient has no other complaints at this time including shortness of breath, chest pain, abdominal pain, headache, or visual changes. - Related Data Home Medications Medication Instructions Recorded Confirmed Citalopram Hydrobromide [CeleXA] 40 mg PO DAILY 11/24/16 07/25/17 HYDROcodone/APAP 10-325MG [[place] 1 tab PO TID 11/24/16 07/25/17 10-325] Albuterol Inhaler [Ventolin Hfa 1 - 2 puff INHALATION RT-Q6H PRN 01/07/17 07/25/17 Inhaler] Ibuprofen [Motrin] 800 mg PO TID PRN 07/25/17 07/25/17 Omeprazole [PriLOSEC] 20 mg PO AC-BRKFST 07/25/17 07/25/17 Previous Rx's Medication Instructions Recorded Clindamycin [Cleocin] 450 mg PO Q8H 7 Days #21 capsule 04/15/18 Acetaminophen [Tylenol] 1,000 mg PO Q6H PRN #20 tab 08/05/19 Ondansetron [Zofran ODT] 4 mg PO Q8HR PRN #15 tab 08/05/19 Ondansetron [Zofran ODT] 4 mg PO Q8HR PRN #15 tab 08/05/19 predniSONE 50 mg PO DAILY #5 tablet 08/05/19 Allergies Allergy/AdvReac Type Severity Reaction Status Date / Time amoxicillin Allergy Dyspnea Verified 04/15/18 22:18 sulfamethoxazole Allergy Unknown Verified 04/15/18 22:18 [From Bactrim] trimethoprim [From Bactrim] Allergy Unknown Verified 04/15/18 22:18 Review of Systems ROS Statement: Those systems with pertinent positive or pertinent negative responses have been documented in the HPI. ROS Other: All systems not noted in ROS Statement are negative. Past Medical History Past Medical History: Asthma Additional Past Medical History / Comment(s): DDD, chronic back pain History of Any Multi-Drug Resistant Organisms: None Reported Past Surgical History: Section, Hysterectomy Additional Past Surgical History / Comment(s): pain services procedures Past Anesthesia/Blood Transfusion Reactions: No Reported Reaction Past Psychological History: Depression Smoking Status: Former smoker Past Alcohol Use History: None Reported Past Drug Use History: None Reported General Exam Limitations: no limitations General appearance: alert, in no apparent distress Head exam: Present: atraumatic, normocephalic, normal inspection Eye exam: Present: normal appearance, PERRL, EOMI. Absent: scleral icterus, conjunctival injection, periorbital swelling ENT exam: Present: normal exam, normal oropharynx, mucous membranes moist, TM's normal bilaterally, normal external ear exam Neck exam: Present: normal inspection, full ROM. Absent: tenderness, meningismus, lymphadenopathy Respiratory exam: Present: normal lung sounds bilaterally. Absent: respiratory distress, wheezes, rales, rhonchi, stridor Cardiovascular Exam: Present: regular rate, normal rhythm, normal heart sounds. Absent: systolic murmur, diastolic murmur, rubs, gallop, clicks GI/Abdominal exam: Present: soft, normal bowel sounds. Absent: distended, tenderness, guarding, rebound, rigid Neurological exam: Present: alert Course Vital Signs 08/05/19 08/05/19 10:49 11:23 Temperature 100.9 F H Pulse Rate 109 H 104 H Respiratory 18 Rate Blood Pressure 132/75 O2 Sat by Pulse 98 Oximetry Medical Decision Making - Medical Decision Making Vitals are stable. Patient is noted to have a fever. She was given Tylenol. We'll exam unremarkable. Patient is nontoxic. Influenza A is positive. Chest x-ray shows no active intrathoracic disease. As patient has mild wheezing she'll be treated with steroids as well as Zofran. She requests prescription for Tylenol. Patient refuses Tamiflu as she is already nauseous and does not want this possible side effect. She will drink plenty of fluids and follow-up with primary care. She will return if she has any worsening symptoms. - Lab Data Lab Results 08/05/19 Range/Units 11:36 Influenza Type A RNA Detected H (Not Detectd) Influenza Type B (PCR) Not Detected (Not Detectd) Disposition Clinical Impression: Influenza A, History of asthma Disposition: HOME SELF-CARE Condition: Good Instructions (If sedation given, give patient instructions): Fever in Adults (ED), Influenza (ED) Additional Instructions: Please alternate Motrin and Tylenol for fever as needed every 3 hours. Drink plenty of fluids. Take Zofran as needed for nausea. Use steroids for asthma exacerbation. Continue to use your inhaler. Return to the emergency department if you have any worsening symptoms. Prescriptions: predniSONE 50 mg PO DAILY #5 tablet Acetaminophen [Tylenol] 1,000 mg PO Q6H PRN #20 tab PRN Reason: Fever Ondansetron [Zofran ODT] 4 mg PO Q8HR PRN #15 tab PRN Reason: Nausea Ondansetron [Zofran ODT] 4 mg PO Q8HR PRN #15 tab PRN Reason: Nausea Is patient prescribed a controlled substance at d/c from ED?: No Referrals: Shaun Rodriguez MD [Primary Care Provider] - 1-2 days Time of Disposition: 13:02
--- NOTE | 2019-08-05 11:46 | XR ---
EXAMINATION TYPE: XR chest 2V DATE OF EXAM: 08/05/2019 HISTORY: coug fever. REFERENCE: Previous study dated 07/25/2017. FINDINGS: The lungs remain clear. Pleural space are clear. The heart is not enlarged. IMPRESSION: NO ACTIVE INTRATHORACIC DISEASE.
[2019-08-05 13:12] VITALS: BP 150/83; PULSE 102; TEMP 99.3
== END 2019-08-05 13:12 | disposition home or self-care (01) ==
LOC: EC 10:39
DX: J10.1 Influenza due to other identified influenza virus with other respiratory manifestations (principal); J45.909 Unspecified asthma, uncomplicated; G89.29 Other chronic pain; F32.9 Major depressive disorder, single episode, unspecified; Z87.891 Personal history of nicotine dependence; Z88.0 Allergy status to penicillin; Z88.2 Allergy status to sulfonamides; Z79.891 Long term (current) use of opiate analgesic; Z79.899 Other long term (current) drug therapy; Z53.29 Procedure and treatment not carried out because of patient's decision for other reasons
CPT/HCPCS: 71046; 87502; 94640; 99284

== ENCOUNTER 2019-09-09 19:36 | Emergency (ER) | payer OTHER ==
[2019-09-09 19:41] VITALS: TEMP 98.7
[2019-09-09] MEDS ORDERED: MORPHINE SULFATE 4 MG/ML SYRINGE IV STA (20:10)
--- NOTE | 2019-09-09 20:13 | ED ---
General Adult HPI - General Chief complaint: Abdominal Pain Stated complaint: Abd pain Time Seen by Provider: 09/09/19 19:44 Source: patient Mode of arrival: ambulatory Limitations: no limitations - History of Present Illness Initial comments: Dictation was produced using [employer] dictation software. please excuse any grammatical, word or spelling errors. Chief Complaint: 53-year-old female with past history of asthma, chronic back pain and hysterectomy presents with abdominal pain. History of Present Illness: 53-year-old female presents today with abdominal pain. She has symptoms ongoing for the last 4-5 days. At the time of her symptoms she was playing with her granddaughter. She states she was struck in her abdomen over the site. Patient complains of pain at the suprapubic area at the inferior portion of her hysterectomy scar. Patient denies any nausea or vomiting. No diarrhea. Denies any fevers. Apparently they did not come sooner because they didn't have transportation. They could not afford it and we are waiting for their paychecks. The ROS documented in this emergency department record has been reviewed and confirmed by me. Those systems with pertinent positive or negative responses have been documented in the HPI. All other systems are other negative and/or noncontributory. PHYSICAL EXAM: General Impression: Alert and oriented x3, not in acute distress HEENT: Normocephalic atraumatic, extra-ocular movements intact, pupils equal and reactive to light bilaterally, mucous membranes moist. Cardiovascular: Heart regular rate and rhythm, S1&S2 audible, no murmurs, rubs or gallops Chest: Lungs clear to auscultation bilaterally, no rhonchi, no wheeze, no rales Abdomen: Bowel sounds present, abdomen soft, tenderness over the inferior portion of the hysterectomy scar, no palpable mass, no mass with Valsalva. Abdomen is nontender. She does have some point tenderness over the midline pubis Musculoskeletal: Pulses present and equal in all extremities, no peripheral edema Motor: no focal deficits noted Neurological: CN II-XII grossly intact, no focal motor or sensory deficits noted Skin: Intact with no visualized rashes Psych: Normal affect and mood ED course: 53-year-old female presents with abdominal pain. Clinical presentation likely secondary to pubic bone contusion. All signs upon arrival are within acceptable limits. Patient's well-appearing at bedside. No palpable defect felt in the anterior abdominal wall at patient site. No signs to suggest strangulated or incarcerated hernia. Scattered air-fluid levels concerning for gastroenteritis. Patient reevaluated at bedside after some IV analgesia. She is well-appearing. She states her pain is improved. She is tolerating by mouth at bedside. Patient is agreeable for discharge. She is given referral to outpatient general surgery for further assessment and care. Patient is told to return to the emergency department worsening abdominal pain, fever or intractable nausea and vomiting. Patient given a Tylenol 3 starter pack. - Related Data Home Medications Medication Instructions Recorded Confirmed Citalopram Hydrobromide [CeleXA] 40 mg PO DAILY 11/24/16 07/25/17 HYDROcodone/APAP 10-325MG [[place] 1 tab PO TID 11/24/16 07/25/17 10-325] Albuterol Inhaler [Ventolin Hfa 1 - 2 puff INHALATION RT-Q6H PRN 01/07/17 07/25/17 Inhaler] Ibuprofen [Motrin] 800 mg PO TID PRN 07/25/17 07/25/17 Omeprazole [PriLOSEC] 20 mg PO AC-BRKFST 07/25/17 07/25/17 Previous Rx's Medication Instructions Recorded Clindamycin [Cleocin] 450 mg PO Q8H 7 Days #21 capsule 04/15/18 Acetaminophen [Tylenol] 1,000 mg PO Q6H PRN #20 tab 08/05/19 Ondansetron [Zofran ODT] 4 mg PO Q8HR PRN #15 tab 08/05/19 Ondansetron [Zofran ODT] 4 mg PO Q8HR PRN #15 tab 08/05/19 predniSONE 50 mg PO DAILY #5 tablet 08/05/19 Allergies Allergy/AdvReac Type Severity Reaction Status Date / Time amoxicillin Allergy Dyspnea Verified 09/09/19 19:41 sulfamethoxazole Allergy Unknown Verified 09/09/19 19:41 [From Bactrim] trimethoprim [From Bactrim] Allergy Unknown Verified 09/09/19 19:41 Review of Systems ROS Statement: Those systems with pertinent positive or pertinent negative responses have been documented in the HPI. ROS Other: All systems not noted in ROS Statement are negative. Past Medical History Past Medical History: Asthma Additional Past Medical History / Comment(s): DDD, chronic back pain History of Any Multi-Drug Resistant Organisms: None Reported Past Surgical History: Section, Hysterectomy Additional Past Surgical History / Comment(s): pain services procedures Past Anesthesia/Blood Transfusion Reactions: No Reported Reaction Past Psychological History: Depression Smoking Status: Former smoker Past Alcohol Use History: None Reported Past Drug Use History: None Reported General Exam Limitations: no limitations Course Vital Signs 09/09/19 09/09/19 19:38 20:17 Temperature 98.7 F Pulse Rate 90 76 Respiratory 16 16 Rate Blood Pressure 93/61 106/58 O2 Sat by Pulse 99 96 Oximetry Medical Decision Making - Lab Data Result diagrams: 09/09/19 20:10 09/09/19 20:10 Lab Results 09/09/19 09/09/19 09/09/19 Range/Units 20:10 20:10 20:10 WBC 9.6 (3.8-10.6) k/uL RBC 4.80 (3.80-5.40) m/uL Hgb 14.3 (11.4-16.0) gm/dL Hct 42.9 (34.0-46.0) % MCV 89.5 (80.0-100.0) fL MCH 29.8 (25.0-35.0) pg MCHC 33.3 (31.0-37.0) g/dL RDW 12.9 (11.5-15.5) % Plt Count 339 (150-450) k/uL Neutrophils % 58 % Lymphocytes % 31 % Monocytes % 4 % Eosinophils % 4 % Basophils % 1 % Neutrophils # 5.6 (1.3-7.7) k/uL Lymphocytes # 3.0 (1.0-4.8) k/uL Monocytes # 0.4 (0-1.0) k/uL Eosinophils # 0.4 (0-0.7) k/uL Basophils # 0.1 (0-0.2) k/uL Sodium 139 (137-145) mmol/L Potassium 3.5 (3.5-5.1) mmol/L Chloride 106 (98-107) mmol/L Carbon Dioxide 24 (22-30) mmol/L Anion Gap 9 mmol/L BUN 13 (7-17) mg/dL Creatinine 0.75 (0.52-1.04) mg/dL Est GFR (CKD-EPI)AfAm >90 (>60 ml/min/1.73 sqM) Est GFR (CKD-EPI)NonAf >90 (>60 ml/min/1.73 sqM) Glucose 105 H (74-99) mg/dL Calcium 9.3 (8.4-10.2) mg/dL Total Bilirubin 1.0 (0.2-1.3) mg/dL AST 43 H (14-36) U/L ALT 42 H (4-34) U/L Alkaline Phosphatase 147 H (38-126) U/L Total Protein 7.3 (6.3-8.2) g/dL Albumin 4.2 (3.5-5.0) g/dL Lipase 45 (23-300) U/L Urine Color Yellow Urine Appearance Clear (Clear) Urine pH 6.0 (5.0-8.0) Ur Specific [place] 1.030 (1.001-1.035) Urine Protein 1+ H (Negative) Urine Glucose (UA) Negative (Negative) Urine Ketones Trace H (Negative) Urine Blood Negative (Negative) Urine Nitrite Negative (Negative) Urine Bilirubin Negative (Negative) Urine Urobilinogen 6.0 (<2.0) mg/dL Ur Leukocyte Esterase Negative (Negative) Urine RBC 1 (0-5) /hpf Urine WBC 3 (0-5) /hpf Ur Squamous Epith Cells <1 (0-4) /hpf Urine Mucus Many H (None) /hpf Disposition Clinical Impression: Abdominal pain Disposition: HOME SELF-CARE Condition: Good Instructions (If sedation given, give patient instructions): Abdominal Pain (ED), Ventral Hernia (ED) Is patient prescribed a controlled substance at d/c from ED?: No Referrals: May Restrepo DO [Doctor of Osteopathic Medicine] - 1-2 days Time of Disposition: 20:53
[2019-09-09 20:19] LABS: Basophils # (A) 0.1 k/uL (0-0.2); Basophils % (A) 1 %; Eosinophils # (A) 0.4 k/uL (0-0.7); Eosinophils % (A) 4 %; HCT 42.9 % (34.0-46.0); HGB 14.3 gm/dL (11.4-16.0); Lymphocytes % (A) 31 %; MCH 29.8 pg (25.0-35.0); MCHC 33.3 g/dL (31.0-37.0); MCV 89.5 fL (80.0-100.0); Mean Platelet Volume 8.2; Monocytes # (A) 0.4 k/uL (0-1.0); Monocytes % (A) 4 %; Neutrophils # (A) 5.6 k/uL (1.3-7.7); Neutrophils % (A) 58 %; Platelet Count 339 k/uL (150-450); RDW 12.9 % (11.5-15.5); WBC 9.6 k/uL (3.8-10.6)
[2019-09-09 20:28] LABS: Appearance,Urine Clear (Clear); Bilirubin,Urine Negative (Negative); Blood,Urine Negative (Negative); Color,Urine Yellow; Glucose,Urine (UA) Negative (Negative); Ketones,Urine Trace (Negative); Leukocyte Esterase,Urine Negative (Negative); Mucus,Urine Many /hpf; Nitrite,Urine Negative (Negative); Protein,Urine 1+ (Negative); RBC,Urine 1 /hpf (0-5); Squamous Epithelial Cell,Urine <1 /hpf (0-4); WBC,Urine 3 /hpf (0-5)
[2019-09-09 20:29] LABS: ALT 42 U/L (4-34); AST 43 U/L (14-36); African American GFR (CKD) >90 (>60 ml/min/1.73 sqM); Albumin 4.2 g/dL (3.5-5.0); Alkaline Phosphatase 147 U/L (38-126); Anion Gap 9 mmol/L; Blood Urea Nitrogen 13 mg/dL (7-17); Calcium 9.3 mg/dL (8.4-10.2); Carbon Dioxide 24 mmol/L (22-30); Chloride 106 mmol/L (98-107); Glucose 105 mg/dL (74-99); Non-African American GFR(CKD) >90 (>60 ml/min/1.73 sqM); Potassium 3.5 mmol/L (3.5-5.1); Sodium 139 mmol/L (137-145); Total Protein 7.3 g/dL (6.3-8.2)
--- NOTE | 2019-09-09 20:42 | XR ---
EXAMINATION TYPE: XR abdomen 1V DATE OF EXAM: 09/09/2019 COMPARISON: None INDICATION: Abdomen pain TECHNIQUE: Single view abdomen upright view FINDINGS: Air-fluid levels are within the right abdomen. Nonspecific bowel gas is within the left abdomen. Psoas margins are normal. No organomegaly is present. Differential air-fluid levels are not present. No free air is evident. Postsurgical changes are at L4 -S1 with pedicle screws. IMPRESSION: 1. Nonspecific abdomen with scattered air-fluid levels. Consider gastroenteritis within the different ial. Follow-up can be performed as clinically indicated.
[2019-09-09] MEDS ORDERED: ACET/COD 300 MG/30 MG STARTER PACK 6 TAB BTL PO STA (20:53)
[2019-09-09 21:24] VITALS: BP 103/75; PULSE 72; RESP 18
== END 2019-09-09 21:30 | disposition home or self-care (01) ==
LOC: EC 19:36
DX: R10.30 Lower abdominal pain, unspecified (principal); J45.909 Unspecified asthma, uncomplicated; F32.9 Major depressive disorder, single episode, unspecified; Z79.899 Other long term (current) drug therapy; Z88.0 Allergy status to penicillin; Z88.1 Allergy status to other antibiotic agents; Z88.2 Allergy status to sulfonamides; Z87.891 Personal history of nicotine dependence; Z90.710 Acquired absence of both cervix and uterus
CPT/HCPCS: 36415; 80053; 83690; 85025; 81001; 74018; 99284; 96374; J2270

== ENCOUNTER 2020-01-10 23:32 | Emergency (ER) | payer OTHER ==
[2020-01-10 23:39] VITALS: BP 103/89; PULSE 95; TEMP 98.2
[2020-01-10 23:51] VITALS: RESP 20
--- NOTE | 2020-01-11 00:09 | XR ---
EXAMINATION TYPE: XR chest 2V DATE OF EXAM: 01/11/2020 COMPARISON: 08/05/2019 HISTORY: Cough and fever TECHNIQUE: 2 views FINDINGS: Heart and mediastinum are normal. Lungs are clear. Diaphragm is normal. Bony thorax appears normal. IMPRESSION: Normal chest. No change.
[2020-01-11] MEDS ORDERED: predniSONE 20 MG TAB PO STA (00:50)
--- NOTE | 2020-01-11 00:51 | ED ---
SOB HPI - General Chief Complaint: Shortness of Breath Stated Complaint: SOB,ETOH Time Seen by Provider: 01/10/20 23:36 Source: patient, EMS Mode of arrival: EMS Limitations: no limitations - History of Present Illness Initial Comments: Patient's 54-year-old woman with history of COPD who states it felt like this was flaring up. She was given albuterol by EMS during transport and does feel markedly improved. Patient denies fever or chills. No productive cough. No chest pain or diaphoresis. MD Complaint: shortness of breath, cough -: hour(s) Severity scale (1-10): 0 Consistency: constant Improves With: bronchodilators Worsens With: nothing Known History Of: COPD Context: smoke/fume exposure Associated Symptoms: denies other symptoms - Related Data Home Oxygen Therapy: No Home Medications Medication Instructions Recorded Confirmed Citalopram Hydrobromide [CeleXA] 40 mg PO DAILY 11/24/16 07/25/17 HYDROcodone/APAP 10-325MG [[place] 1 tab PO TID 11/24/16 07/25/17 10-325] Albuterol Inhaler (Mhu) [Ventolin 1 - 2 puff INHALATION RT-Q6H PRN 01/07/17 07/25/17 Hfa Inhaler] Ibuprofen [Motrin] 800 mg PO TID PRN 07/25/17 07/25/17 Omeprazole [PriLOSEC] 20 mg PO AC-BRKFST 07/25/17 07/25/17 Previous Rx's Medication Instructions Recorded Clindamycin [Cleocin] 450 mg PO Q8H 7 Days #21 capsule 04/15/18 Acetaminophen [Tylenol] 1,000 mg PO Q6H PRN #20 tab 08/05/19 Ondansetron [Zofran ODT] 4 mg PO Q8HR PRN #15 tab 08/05/19 Ondansetron [Zofran ODT] 4 mg PO Q8HR PRN #15 tab 08/05/19 predniSONE 50 mg PO DAILY #5 tablet 08/05/19 predniSONE [Deltasone] 20 mg PO BID #8 tab 01/11/20 Allergies Allergy/AdvReac Type Severity Reaction Status Date / Time amoxicillin Allergy Dyspnea Verified 09/09/19 19:41 sulfamethoxazole Allergy Unknown Verified 09/09/19 19:41 [From Bactrim] trimethoprim [From Bactrim] Allergy Unknown Verified 09/09/19 19:41 Review of Systems ROS Statement: Those systems with pertinent positive or pertinent negative responses have been documented in the HPI. ROS Other: All systems not noted in ROS Statement are negative. Constitutional: Denies: fever, chills Respiratory: Reports: cough, dyspnea, wheezes. Denies: hemoptysis Cardiovascular: Denies: chest pain, palpitations, edema, syncope Gastrointestinal: Denies: abdominal pain, vomiting, diarrhea Genitourinary: Denies: dysuria Musculoskeletal: Denies: back pain Skin: Denies: rash Neurological: Denies: headache, weakness, numbness Past Medical History Past Medical History: Asthma Additional Past Medical History / Comment(s): DDD, chronic back pain History of Any Multi-Drug Resistant Organisms: None Reported Past Surgical History: Section, Hysterectomy Additional Past Surgical History / Comment(s): pain services procedures Past Anesthesia/Blood Transfusion Reactions: No Reported Reaction Past Psychological History: Depression Smoking Status: Former smoker Past Alcohol Use History: None Reported, Occasional Past Drug Use History: None Reported General Exam Limitations: no limitations General appearance: alert, in no apparent distress, appears intoxicated Head exam: Present: atraumatic, normocephalic Eye exam: Present: normal appearance. Absent: scleral icterus, conjunctival injection ENT exam: Present: normal oropharynx Neck exam: Present: normal inspection Respiratory exam: Present: wheezes. Absent: respiratory distress, rales, rhonchi, stridor, chest wall tenderness, accessory muscle use, decreased breath sounds Cardiovascular Exam: Present: regular rate, normal rhythm, normal heart sounds. Absent: systolic murmur, diastolic murmur, rubs, gallop GI/Abdominal exam: Present: soft. Absent: distended, tenderness, guarding, rebound, rigid, mass Extremities exam: Present: normal inspection, normal capillary refill. Absent: pedal edema, calf tenderness Back exam: Present: normal inspection. Absent: CVA tenderness (R), CVA tenderness (L) Neurological exam: Present: alert Skin exam: Present: warm, dry, intact, normal color. Absent: rash Course Vital Signs 01/10/20 01/10/20 23:34 23:49 Temperature 98.2 F Pulse Rate 95 Respiratory 18 20 Rate Blood Pressure 103/89 O2 Sat by Pulse 97 Oximetry Medical Decision Making - Medical Decision Making Patient's 54-year-old woman arriving by ambulance for what appears to be COPD exacerbation. She was feeling much better and did not want to stay for the remainder of workup. Disposition Clinical Impression: COPD exacerbation Disposition: HOME SELF-CARE Condition: Good Instructions (If sedation given, give patient instructions): Asthma (ED) Prescriptions: predniSONE [Deltasone] 20 mg PO BID #8 tab Is patient prescribed a controlled substance at d/c from ED?: No Referrals: Shaun Rodriguez MD [Primary Care Provider] - 1-2 days
== END 2020-01-11 01:05 | disposition home or self-care (01) ==
LOC: EC 23:32
DX: J44.1 Chronic obstructive pulmonary disease with (acute) exacerbation (principal); F32.9 Major depressive disorder, single episode, unspecified; Z79.899 Other long term (current) drug therapy; Z88.0 Allergy status to penicillin; Z88.1 Allergy status to other antibiotic agents; Z88.2 Allergy status to sulfonamides; Z87.891 Personal history of nicotine dependence
CPT/HCPCS: 71046; 99285; J7512

== ENCOUNTER 2020-01-20 20:12 | Emergency (ER) | payer OTHER ==
[2020-01-20 20:18] VITALS: BP 118/69; PULSE 116; RESP 20; TEMP 98.8
--- NOTE | 2020-01-20 20:24 | ED ---
General Adult HPI - General Chief complaint: Fall Stated complaint: Fall Time Seen by Provider: 01/20/20 20:12 Source: patient, EMS, RN notes reviewed, old records reviewed Mode of arrival: EMS Limitations: no limitations - History of Present Illness Initial comments: This a 54-year-old female who had a few drinks and then fell down 3 steps and hit the right side of her forehead just above her right eye on a car bumper. Patient did not lose consciousness. Patient denies any neck pain. Patient denies any numbness or weakness. Patient denies any other injury at this time. Patient denies any chest pain or difficulty breathing or shortness of breath. Patient denies any back pain. Patient denies any abdominal pain. Patient denies any extremity pain. - Related Data Home Medications Medication Instructions Recorded Confirmed Citalopram Hydrobromide [CeleXA] 40 mg PO DAILY 11/24/16 07/25/17 HYDROcodone/APAP 10-325MG [[place] 1 tab PO TID 11/24/16 07/25/17 10-325] Albuterol Inhaler (Mhu) [Ventolin 1 - 2 puff INHALATION RT-Q6H PRN 01/07/17 07/25/17 Hfa Inhaler] Ibuprofen [Motrin] 800 mg PO TID PRN 07/25/17 07/25/17 Omeprazole [PriLOSEC] 20 mg PO AC-BRKFST 07/25/17 07/25/17 Previous Rx's Medication Instructions Recorded Clindamycin [Cleocin] 450 mg PO Q8H 7 Days #21 capsule 04/15/18 Acetaminophen [Tylenol] 1,000 mg PO Q6H PRN #20 tab 08/05/19 Ondansetron [Zofran ODT] 4 mg PO Q8HR PRN #15 tab 08/05/19 Ondansetron [Zofran ODT] 4 mg PO Q8HR PRN #15 tab 08/05/19 predniSONE 50 mg PO DAILY #5 tablet 08/05/19 predniSONE [Deltasone] 20 mg PO BID #8 tab 01/11/20 Allergies Allergy/AdvReac Type Severity Reaction Status Date / Time amoxicillin Allergy Dyspnea Verified 01/20/20 20:16 sulfamethoxazole Allergy Unknown Verified 01/20/20 20:16 [From Bactrim] trimethoprim [From Bactrim] Allergy Unknown Verified 01/20/20 20:16 Review of Systems ROS Statement: Those systems with pertinent positive or pertinent negative responses have been documented in the HPI. ROS Other: All systems not noted in ROS Statement are negative. Past Medical History Past Medical History: Asthma Additional Past Medical History / Comment(s): DDD, chronic back pain History of Any Multi-Drug Resistant Organisms: None Reported Past Surgical History: Section, Hysterectomy Additional Past Surgical History / Comment(s): pain services procedures Past Anesthesia/Blood Transfusion Reactions: No Reported Reaction Past Psychological History: Depression Smoking Status: Former smoker Past Alcohol Use History: Abuse, Daily, Heavy Past Drug Use History: None Reported General Exam - General Exam Comments Initial Comments: GENERAL: Patient is well-developed and well-nourished. Patient is nontoxic and well- hydrated and is in mild distress. ENT: Neck is soft and supple. No significant lymphadenopathy is noted. Oropharynx is clear. Moist mucous membranes. Neck has full range of motion without eliciting any pain. EYES: The sclera were anicteric and conjunctiva were pink and moist. Patient has some swelling over the right eye at the level of the eyebrow. Extraocular movements were intact and pupils were equal round and reactive to light. Eyelids were unremarkable. PULMONARY: Unlabored respirations. Good breath sounds bilaterally. No audible rales rhonchi or wheezing was noted. CARDIOVASCULAR: There is a regular rate and rhythm without any murmurs gallops or rubs. ABDOMEN: Soft and nontender with normal bowel sounds. SKIN: Patient has a very superficial abrasion on the right knee NEUROLOGIC: Patient is alert and oriented x3. Cranial nerves II through XII are grossly intact. Motor and sensory are also intact. Normal speech, volume and content. Symmetrical smile. MUSCULOSKELETAL: Normal extremities with adequate strength and full range of motion. LYMPHATICS: No significant lymphadenopathy is noted PSYCHIATRIC: Normal psychiatric evaluation. Limitations: no limitations Course Vital Signs 01/20/20 20:16 Temperature 98.8 F Pulse Rate 116 H Respiratory 20 Rate Blood Pressure 118/69 O2 Sat by Pulse 97 Oximetry Medical Decision Making - Medical Decision Making CT of the brain and C-spine showed no acute abnormality. CT of the orbit showed no acute abnormality. is here willing to take the patient home and be responsible for the patient. Disposition Clinical Impression: Fall, Head injury, Alcohol intoxication Disposition: HOME SELF-CARE Instructions (If sedation given, give patient instructions): Fall Prevention for Older Adults (ED), Head Injury (ED) Is patient prescribed a controlled substance at d/c from ED?: No Referrals: Shaun Rodriguez MD [Primary Care Provider] - 1-2 days Time of Disposition: 20:58
--- NOTE | 2020-01-20 20:58 | CT ---
EXAMINATION TYPE: CT orbits wo con DATE OF EXAM: 01/20/2020 COMPARISON: None HISTORY: Fall injury CT DLP: 1203.2 mGycm Automated exposure control for dose reduction was used. Multiple axial sections were obtained without contrast from the mid maxilla to the top of the frontal sinuses. FINDINGS: The orbital margins are intact. There is normal aeration of the visualized paranasal sinuses. There i s no evidence of a blowout fracture. The maxilla is intact. There is normal aeration of the mastoid s inuses. There is some deformity of the nasal bone deviated to the right side. Images are slightly rou nded and this is probably an old fracture. Zygomatic arches appear normal. There is no evidence of re tro-orbital mass. The globes are symmetric. IMPRESSION: Nasal bone deformity with appearance consistent with old displaced fracture. No acute bony normality of the orbits.
--- NOTE | 2020-01-20 21:15 | CT ---
EXAMINATION TYPE: CT brain cspine wo con DATE OF EXAM: 01/20/2020 COMPARISON: None HISTORY: Fall injury CT DLP: 1203.2 mGycm Automated exposure control for dose reduction was used. Ventricles and sulci appear normal. There is no mass effect nor midline shift. There is no sign of in tracranial hemorrhage. The calvarium is intact. There is some straightening of the vertebra. The posterior elements are intact. Facet joints are inta ct. There is mild spurring of the endplates. There is normal aeration of the mastoid sinuses. IMPRESSION: Negative CT scan of the brain. Negative CT scan of the cervical spine. Mild spondylotic changes.
== END 2020-01-20 21:28 | disposition home or self-care (01) ==
LOC: EC 20:12
DX: S09.90XA Unspecified injury of head, initial encounter (principal); F10.129 Alcohol abuse with intoxication, unspecified; S80.211A Abrasion, right knee, initial encounter; J45.909 Unspecified asthma, uncomplicated; F32.9 Major depressive disorder, single episode, unspecified; Z79.899 Other long term (current) drug therapy; Z88.0 Allergy status to penicillin; Z88.1 Allergy status to other antibiotic agents; Z88.2 Allergy status to sulfonamides; Z87.891 Personal history of nicotine dependence; W10.9XXA Fall (on) (from) unspecified stairs and steps, initial encounter
CPT/HCPCS: 70450; 70480; 72125; 99284

== ENCOUNTER 2020-02-20 19:18 | Emergency (ER) | payer OTHER ==
--- NOTE | 2020-02-20 19:30 | ED ---
Abdominal Pain HPI - General Chief Complaint: Abdominal Pain Stated Complaint: Urogenital female Time Seen by Provider: 02/20/20 19:30 Source: patient, RN notes reviewed, old records reviewed Mode of arrival: ambulatory Limitations: no limitations - History of Present Illness Initial Comments: This is a 54-year-old female DF for evaluation patient presents today for evaluation of some suprapubic abdominal pain and loss of bowel or bladder. No recent sick contacts no history of similar complaints. Patient recently treated for urinary tract infection. No fevers is complaining of anterior abdominal pain cramping MD Complaint: abdominal pain -: days(s) Location: suprapubic Radiation: suprapubic Migration to: suprapubic Severity: moderate Severity scale (1-10): 4 Quality: aching Consistency: constant Improves With: nothing Worsens With: nothing Context: recent surgery/procedure Associated Symptoms: nausea - Related Data Home Medications Medication Instructions Recorded Confirmed Ibuprofen [Motrin] 800 mg PO DAILY PRN 07/25/17 02/20/20 Albuterol Sulfate [Ventolin HFA] 2 puff INHALATION RT-Q6H PRN 02/20/20 02/20/20 Escitalopram [Lexapro] 10 mg PO DAILY 02/20/20 02/20/20 Nitrofurantoin Monohyd/M-Cryst 100 mg PO Q12HR 02/20/20 02/20/20 [Macrobid] Previous Rx's Medication Instructions Recorded Nitrofurantoin Monohyd/M-Cryst 100 mg PO Q12HR #14 cap 02/20/20 [Macrobid] Allergies Allergy/AdvReac Type Severity Reaction Status Date / Time amoxicillin Allergy Dyspnea Verified 02/20/20 21:18 sulfamethoxazole Allergy Unknown Verified 02/20/20 21:18 [From Bactrim] trimethoprim [From Bactrim] Allergy Unknown Verified 02/20/20 21:18 Review of Systems ROS Statement: Those systems with pertinent positive or pertinent negative responses have been documented in the HPI. ROS Other: All systems not noted in ROS Statement are negative. Past Medical History Past Medical History: Asthma Additional Past Medical History / Comment(s): DDD, chronic back pain History of Any Multi-Drug Resistant Organisms: None Reported Past Surgical History: Section, Hysterectomy Additional Past Surgical History / Comment(s): pain services procedures Past Anesthesia/Blood Transfusion Reactions: No Reported Reaction Past Psychological History: Depression Past Alcohol Use History: Abuse, Daily, Heavy Past Drug Use History: None Reported General Exam Limitations: no limitations General appearance: alert, in no apparent distress Head exam: Present: atraumatic, normocephalic, normal inspection Eye exam: Present: normal appearance, PERRL, EOMI. Absent: scleral icterus, co njunctival injection, periorbital swelling ENT exam: Present: normal exam, mucous membranes moist Neck exam: Present: normal inspection. Absent: tenderness, meningismus, lymphadenopathy Respiratory exam: Present: normal lung sounds bilaterally. Absent: respiratory distress, wheezes, rales, rhonchi, stridor Cardiovascular Exam: Present: regular rate, normal rhythm, normal heart sounds. Absent: systolic murmur, diastolic murmur, rubs, gallop, clicks GI/Abdominal exam: Present: soft, normal bowel sounds. Absent: distended, tenderness, guarding, rebound, rigid Extremities exam: Present: normal inspection, full ROM, normal capillary refill. Absent: tenderness, pedal edema, joint swelling, calf tenderness Back exam: Present: normal inspection Neurological exam: Present: alert, oriented X3, CN II-XII intact Psychiatric exam: Present: normal affect, normal mood Skin exam: Present: warm, dry, intact, normal color. Absent: rash Course Vital Signs 02/20/20 19:20 Temperature 98.5 F Pulse Rate 69 Respiratory 18 Rate Blood Pressure 137/89 O2 Sat by Pulse 98 Oximetry - Reevaluation(s) Reevaluation #1: 02/20/20 20:50 Medical record is reviewed Medical Decision Making - Medical Decision Making 34 female DF for evaluation of urinary incontinence, patient does have persistent urinary tract infection can be discharged home - Lab Data Result diagrams: 02/20/20 20:32 02/20/20 20:32 Lab Results 02/20/20 02/20/20 02/20/20 Range/Units 19:57 20:32 20:32 WBC 8.6 (3.8-10.6) k/uL RBC 4.65 (3.80-5.40) m/uL Hgb 13.9 (11.4-16.0) gm/dL Hct 42.1 (34.0-46.0) % MCV 90.4 (80.0-100.0) fL MCH 29.9 (25.0-35.0) pg MCHC 33.1 (31.0-37.0) g/dL RDW 13.0 (11.5-15.5) % Plt Count 289 (150-450) k/uL Neutrophils % 48 % Lymphocytes % 41 % Monocytes % 4 % Eosinophils % 5 % Basophils % 2 % Neutrophils # 4.2 (1.3-7.7) k/uL Lymphocytes # 3.5 (1.0-4.8) k/uL Monocytes # 0.3 (0-1.0) k/uL Eosinophils # 0.4 (0-0.7) k/uL Basophils # 0.1 (0-0.2) k/uL Sodium 140 (137-145) mmol/L Potassium 3.4 L (3.5-5.1) mmol/L Chloride 111 H (98-107) mmol/L Carbon Dioxide 21 L (22-30) mmol/L Anion Gap 8 mmol/L BUN 14 (7-17) mg/dL Creatinine 0.67 (0.52-1.04) mg/dL Est GFR (CKD-EPI)AfAm >90 (>60 ml/min/1.73 sqM) Est GFR (CKD-EPI)NonAf >90 (>60 ml/min/1.73 sqM) Glucose 89 (74-99) mg/dL Calcium 9.4 (8.4-10.2) mg/dL Total Bilirubin 0.4 (0.2-1.3) mg/dL AST 20 (14-36) U/L ALT 18 (4-34) U/L Alkaline Phosphatase 96 (38-126) U/L Total Protein 6.5 (6.3-8.2) g/dL Albumin 3.8 (3.5-5.0) g/dL Amylase 42 (30-110) U/L Lipase 139 (23-300) U/L Urine Color Yellow Urine Appearance Clear (Clear) Urine pH 5.5 (5.0-8.0) Ur Specific [place] 1.020 (1.001-1.035) Urine Protein Negative (Negative) Urine Glucose (UA) Negative (Negative) Urine Ketones Negative (Negative) Urine Blood Negative (Negative) Urine Nitrite Negative (Negative) Urine Bilirubin Negative (Negative) Urine Urobilinogen <2.0 (<2.0) mg/dL Ur Leukocyte Esterase Trace H (Negative) Urine RBC 1 (0-5) /hpf Urine WBC 12 H (0-5) /hpf Ur Squamous Epith Cells 2 (0-4) /hpf Amorphous Sediment Rare H (None) /hpf Urine Mucus Rare H (None) /hpf - Radiology Data Radiology results: report reviewed (CT head and pelvis positive for cystitis), image reviewed Disposition Clinical Impression: Abdominal pain, UTI (urinary tract infection), Urinary incontinence Disposition: HOME SELF-CARE Condition: Good Instructions (If sedation given, give patient instructions): Urinary Incontinence (ED), Urinary Tract Infection in Women (ED) Prescriptions: Nitrofurantoin Monohyd/M-Cryst [Macrobid] 100 mg PO Q12HR #14 cap Is patient prescribed a controlled substance at d/c from ED?: No Referrals: Shaun Rodriguez MD [Primary Care Provider] - 1-2 days
[2020-02-20 20:15] LABS: Amorphous Sediment,Urine Rare /hpf; Appearance,Urine Clear (Clear); Bilirubin,Urine Negative (Negative); Blood,Urine Negative (Negative); Color,Urine Yellow; Glucose,Urine (UA) Negative (Negative); Ketones,Urine Negative (Negative); Leukocyte Esterase,Urine Trace (Negative); Mucus,Urine Rare /hpf; Nitrite,Urine Negative (Negative); PH, Urine 5.5 (5.0-8.0); Protein,Urine Negative (Negative); RBC,Urine 1 /hpf (0-5); Squamous Epithelial Cell,Urine 2 /hpf (0-4); Urobilinogen,Urine <2.0 mg/dL (<2.0); WBC,Urine 12 /hpf (0-5)
[2020-02-20 21:08] LABS: Basophils # (A) 0.1 k/uL (0-0.2); Basophils % (A) 2 %; Eosinophils # (A) 0.4 k/uL (0-0.7); Eosinophils % (A) 5 %; HCT 42.1 % (34.0-46.0); HGB 13.9 gm/dL (11.4-16.0); Lymphocytes # (A) 3.5 k/uL (1.0-4.8); Lymphocytes % (A) 41 %; MCH 29.9 pg (25.0-35.0); MCHC 33.1 g/dL (31.0-37.0); MCV 90.4 fL (80.0-100.0); Mean Platelet Volume 9.3; Monocytes # (A) 0.3 k/uL (0-1.0); Monocytes % (A) 4 %; Neutrophils # (A) 4.2 k/uL (1.3-7.7); Neutrophils % (A) 48 %; Platelet Count 289 k/uL (150-450); RBC 4.65 m/uL (3.80-5.40); WBC 8.6 k/uL (3.8-10.6)
[2020-02-20 21:17] LABS: ALT 18 U/L (4-34); AST 20 U/L (14-36); African American GFR (CKD) >90 (>60 ml/min/1.73 sqM); Albumin 3.8 g/dL (3.5-5.0); Alkaline Phosphatase 96 U/L (38-126); Amylase 42 U/L (30-110); Anion Gap 8 mmol/L; Blood Urea Nitrogen 14 mg/dL (7-17); Calcium 9.4 mg/dL (8.4-10.2); Carbon Dioxide 21 mmol/L (22-30); Chloride 111 mmol/L (98-107); Glucose 89 mg/dL (74-99); Non-African American GFR(CKD) >90 (>60 ml/min/1.73 sqM); Potassium 3.4 mmol/L (3.5-5.1); Sodium 140 mmol/L (137-145); Total Bilirubin 0.4 mg/dL (0.2-1.3); Total Protein 6.5 g/dL (6.3-8.2)
--- NOTE | 2020-02-20 21:44 | CT ---
EXAMINATION TYPE: CT abdomen pelvis wo con DATE OF EXAM: 02/20/2020 COMPARISON: HISTORY: Abdominal pain, c/o constant leakage, not urine, denies its blood w/cramping. CT DLP: 682.6 mGycm Automated exposure control for dose reduction was used. TECHNIQUE: Helical acquisition of images from the lung bases through the pelvis. FINDINGS: Lack of intravenous contrast could compromise sensitivity of the exam. LUNG BASES: No significant abnormality is appreciated, minimal basilar atelectatic changes noted. AORTA: No significant abnormality is appreciated. LIVER/GB: Low-attenuation within the liver may be due to hepatic steatosis, patient is post cholecyst ectomy. PANCREAS: No significant abnormality is seen. SPLEEN: No significant abnormality is seen. ADRENALS: No significant abnormality is seen. KIDNEYS: No significant abnormality is seen. REPRODUCTIVE ORGANS: Not seen URINARY BLADDER: Bladder wall thickening could be due to lack of distention, correlate to exclude cy stitis BOWEL: Questionable colonic wall thickening. Descending colon, distal transverse colon, there may be lack of distention. The appendix appears somewhat prominently however there is some luminal air pres ent, no inflammatory change is seen FREE AIR: No Free Air is visible. ASCITES: None visible. PELVIC ADENOPATHY: None visualized. RETROPERITONEAL ADENOPATHY: No Retroperitoneal Adenopathy visible. OSSEOUS STRUCTURES: Postop changes are present in the lumbar sacral spine, streak artifact is noted IMPRESSION: CORRELATE FOR HEPATIC STEATOSIS. POSTOP CHANGES. CONSIDER CYSTITIS, COLITIS, NONCONTRAST EXAM. FINDIN GS IN THE APPENDIX IS DESCRIBED.
[2020-02-20] MEDS ORDERED: cefTRIAXone IN SWFI 1,000 MG/10 ML SYRINGE IVP STA (22:07)
[2020-02-20] MEDS ORDERED: NITROFURANTOIN MONOHYD/M-CRYST 100 MG CAP PO STA (22:07)
[2020-02-20 22:20] VITALS: BP 125/73; PULSE 57; RESP 16; TEMP 97.4
== END 2020-02-20 22:28 | disposition home or self-care (01) ==
LOC: EC 19:18
DX: N39.0 Urinary tract infection, site not specified (principal); J45.909 Unspecified asthma, uncomplicated; F32.9 Major depressive disorder, single episode, unspecified; Z79.899 Other long term (current) drug therapy; Z88.0 Allergy status to penicillin; Z88.1 Allergy status to other antibiotic agents; Z88.2 Allergy status to sulfonamides
CPT/HCPCS: 36415; 80053; 82150; 83690; 85025; 81001; 87086; 74176; 99284; 96374; J0696

== ENCOUNTER 2020-03-15 11:18 | Emergency (ER) | payer OTHER ==
[2020-03-15 11:23] VITALS: BP 113/75; PULSE 71; RESP 20; TEMP 98.1
[2020-03-15] MEDS ORDERED: HYDROcodone/APAP 5-325MG 1 EACH TAB PO STA (11:33)
--- NOTE | 2020-03-15 11:36 | ED ---
General Adult HPI - General Chief complaint: Extremity Injury, Upper Stated complaint: Right Shoulder Blade pain Time Seen by Provider: 03/15/20 11:27 Source: patient, RN notes reviewed, old records reviewed Mode of arrival: ambulatory Limitations: no limitations - History of Present Illness Initial comments: 54-year-old female patient presents to ED for evaluation of chronic right shoulder pain. Patient reports that she dislocated her shoulder about 5 years ago and has had pain since. Patient reports that she's had some worsening pain in the last 5 days. She reports that sometimes the pain shoots down her arm. Denies any other acute complaints at this time. Systemic: Pt denies fatigue, fever/chills, rash. Pt denies weakness, night sweats, weight loss. Neuro: Pt denies headache, visual disturbances, syncope or pre-syncope. HEENT: Pt denies ocular discharge or irritation, otalgia, rhinorrhea, pharyngitis or notable lymphadenopathy. Cardiopulmonary: Pt denies chest pain, SOB, heart palpitations, dyspnea on exertion. Abdominal/GI: Pt denies abdominal pain, n/v/d. : Pt denies dysuria, burning w/ urination, frequency/urgency. Denies new onset urinary or bowel incontinence. MSK: Pt denies loss of strength or function in extremities. Neuro: Pt denies new onset weakness. - Related Data Home Medications Medication Instructions Recorded Confirmed Ibuprofen [Motrin] 800 mg PO DAILY PRN 07/25/17 02/20/20 Albuterol Sulfate [Ventolin HFA] 2 puff INHALATION RT-Q6H PRN 02/20/20 02/20/20 Escitalopram [Lexapro] 10 mg PO DAILY 02/20/20 02/20/20 Nitrofurantoin Monohyd/M-Cryst 100 mg PO Q12HR 02/20/20 02/20/20 [Macrobid] Previous Rx's Medication Instructions Recorded Nitrofurantoin Monohyd/M-Cryst 100 mg PO Q12HR #14 cap 02/20/20 [Macrobid] Allergies Allergy/AdvReac Type Severity Reaction Status Date / Time amoxicillin Allergy Dyspnea Verified 03/15/20 11:23 sulfamethoxazole Allergy Unknown Verified 03/15/20 11:23 [From Bactrim] trimethoprim [From Bactrim] Allergy Unknown Verified 03/15/20 11:23 Review of Systems ROS Statement: Those systems with pertinent positive or pertinent negative responses have been documented in the HPI. ROS Other: All systems not noted in ROS Statement are negative. Past Medical History Past Medical History: Asthma Additional Past Medical History / Comment(s): DDD, chronic back pain History of Any Multi-Drug Resistant Organisms: None Reported Past Surgical History: Section, Hysterectomy Additional Past Surgical History / Comment(s): pain services procedures Past Anesthesia/Blood Transfusion Reactions: No Reported Reaction Past Psychological History: Depression Smoking Status: Former smoker Past Alcohol Use History: Abuse, Daily, Heavy Past Drug Use History: None Reported General Exam - General Exam Comments Initial Comments: Constitutional: NAD, AOX3, Pt has pleasant affect. HEENT: NC/AT, trachea midline, neck supple, no lymphadenopathy. External ears appear normal, without discharge. Mucous membranes moist. Eyes PERRLA, EOM intact. There is no scleral icterus. No pallor noted. Cardiopulmonary: RRR, no murmurs, rubs or gallops, no JVD noted. Lungs CTAB in anterior and posterior tadeo. No peripheral edema. Abdominal exam: Abdomen soft and non-distended. Abdomen non-tender to palpation in all 4 quadrants. Bowel sounds active in LLQ. No hepatosplenomegaly. No ecchymosis Neuro: CN II-XII intact. No nuchal rigidity. MSK: Right anterior shoulder is mildly tender to palpation. Empty can test is positive. Radial pulse +2 bilaterally. Full active range of motion. Sensation intact in upper and lower extremities. Full active ROM in upper and lower extremities, 5/5 stregnth. Limitations: no limitations Course Vital Signs 03/15/20 11:20 Temperature 98.1 F Pulse Rate 71 Respiratory 20 Rate Blood Pressure 113/75 O2 Sat by Pulse 99 Oximetry Medical Decision Making - Medical Decision Making 54-year-old female patient with presents to ED with chief complaint chronic right shoulder pain. Plain film does play some anterior tenderness is positive empty can sign. Plain films displayed chronic cortical clavicular joint separation. Possible loose body. Patient Will be discharged with outpatient follow-up and return precautions.. Case discussed with Dr. Layton. Disposition Clinical Impression: Chronic right shoulder pain Disposition: HOME SELF-CARE Condition: Stable Instructions (If sedation given, give patient instructions): Shoulder Pain (ED) Additional Instructions: Follow up with primary care provider and orthopedic consult tomorrow. You may use tylenol and motrin for pain. Return to ED if condition worsens. Is patient prescribed a controlled substance at d/c from ED?: No Referrals: Shaun Rodriguez MD [Primary Care Provider] - 1-2 days Medardo Coleman DO [Doctor of Osteopathic Medicine] - 1-2 days
[2020-03-15] MEDS ORDERED: KETOROLAC 15 MG/ML 1 ML VIAL IM STA (11:39)
--- NOTE | 2020-03-15 12:15 | XR ---
Right shoulder HISTORY: Pain 3 views of the right shoulder Correlation to prior exam 02/03/2011 Bone mineralization, joint spaces and alignment are stable. Mild spurring at the glenohumeral joint s uggestive of osteoarthritic change. Right lung apex as visualized is normal. No fracture or dislocati on. Distal clavicle shows persistent elevation in relation to the acromion. There is an ossific densi ty superimposed over the bony glenoid. IMPRESSION: Chronic acromioclavicular joint separation. Possible loose body, consider synovial osteoc hondromatosis.
[2020-03-15] MEDS ORDERED: Acetaminophen-Codeine 300-30mg TAB PO STA (12:32)
== END 2020-03-15 12:40 | disposition home or self-care (01) ==
LOC: EC 11:18
DX: M25.511 Pain in right shoulder (principal); G89.29 Other chronic pain; J45.909 Unspecified asthma, uncomplicated; F32.9 Major depressive disorder, single episode, unspecified; Z79.899 Other long term (current) drug therapy; Z88.0 Allergy status to penicillin; Z88.2 Allergy status to sulfonamides; Z87.891 Personal history of nicotine dependence
CPT/HCPCS: 96372; 99284

== ENCOUNTER 2020-04-03 13:59 | Emergency (ER) | payer OTHER ==
[2020-04-03 14:12] VITALS: RESP 18
[2020-04-03] MEDS ORDERED: KETOROLAC 15 MG/ML 1 ML VIAL IVP STA (14:28)
[2020-04-03 15:04] LABS: Basophils # (A) 0.1 k/uL (0-0.2); Basophils % (A) 1 %; Eosinophils # (A) 0.3 k/uL (0-0.7); Eosinophils % (A) 4 %; HCT 44.2 % (34.0-46.0); HGB 14.8 gm/dL (11.4-16.0); Lymphocytes # (A) 2.8 k/uL (1.0-4.8); Lymphocytes % (A) 36 %; MCH 30.1 pg (25.0-35.0); MCHC 33.4 g/dL (31.0-37.0); Mean Platelet Volume 8.6; Monocytes # (A) 0.4 k/uL (0-1.0); Monocytes % (A) 5 %; Neutrophils % (A) 52 %; Platelet Count 279 k/uL (150-450); RBC 4.91 m/uL (3.80-5.40); RDW 13.4 % (11.5-15.5); WBC 7.6 k/uL (3.8-10.6)
[2020-04-03 15:06] LABS: ALT 25 U/L (4-34); AST 35 U/L (14-36); African American GFR (CKD) >90 (>60 ml/min/1.73 sqM); Albumin 4.1 g/dL (3.5-5.0); Alkaline Phosphatase 91 U/L (38-126); Anion Gap 7 mmol/L; Blood Urea Nitrogen 17 mg/dL (7-17); C Reactive Protein 14.7 mg/L (<10.0); Calcium 9.4 mg/dL (8.4-10.2); Carbon Dioxide 24 mmol/L (22-30); Chloride 110 mmol/L (98-107); Glucose 88 mg/dL (74-99); Non-African American GFR(CKD) >90 (>60 ml/min/1.73 sqM); Potassium 3.8 mmol/L (3.5-5.1); Sodium 141 mmol/L (137-145); Total Bilirubin 0.4 mg/dL (0.2-1.3); Total Protein 6.9 g/dL (6.3-8.2)
[2020-04-03] MEDS ORDERED: HYDROmorphone 1 MG/ML 1 ML SYRINGE IVP STA (15:34)
[2020-04-03 15:45] LABS: Appearance,Urine Clear (Clear); Bilirubin,Urine Negative (Negative); Blood,Urine Negative (Negative); Color,Urine Yellow; Glucose,Urine (UA) Negative (Negative); Ketones,Urine Negative (Negative); Leukocyte Esterase,Urine Negative (Negative); Nitrite,Urine Negative (Negative); PH, Urine 5.5 (5.0-8.0); Protein,Urine Negative (Negative); Specific Gravity,Urine 1.028 (1.001-1.035); Urobilinogen,Urine <2.0 mg/dL (<2.0)
--- NOTE | 2020-04-03 16:00 | XR ---
EXAM TYPE: LUMBAR SPINE X RAY SERIES COMPARISON: 05/25/2019 HISTORY: Pain TECHNIQUE: Three views are submitted. FINDINGS: Postsurgical changes involving the lumbosacral junction. There is minimal anterolisthesis of L4 on 5 and L5 on S1. Surgical clips in the right upper quadrant. Diffuse osteopenia noted. There is multilevel degenerative disc disease and spurring. Moderate changes at L3-L4. Mild changes at the L1-2 and L2-L3. IMPRESSION: 1. Postsurgical change with anterolisthesis L4 on L5 and L5-S1. Degenerative disc disease L3-L4..
--- NOTE | 2020-04-03 16:02 | ED ---
General Adult HPI - General Chief complaint: Back Pain/Injury Stated complaint: Back Pain Source: patient, RN notes reviewed Mode of arrival: ambulatory Limitations: no limitations - History of Present Illness Initial comments: 54-year-old female presents to the emergency room for a chief complaint of back pain. Patient reports that about one week ago she was moving furniture around her house. States that the next day she started to have some back pain. States it is around where her surgery was one year ago. Patient denies bladder or bowel changes. Denies numbness or tingling in the groin or buttock. Denies weakness of the lower external he. Denies fevers or chills. Patient denies any recent illnesses. No nausea vomiting or diarrhea.Patient has no other complai nts at this time including shortness of breath, chest pain, abdominal pain, nausea or vomiting, headache, or visual changes. - Related Data Home Medications Medication Instructions Recorded Confirmed Ibuprofen [Motrin] 800 mg PO DAILY PRN 07/25/17 03/15/20 Albuterol Sulfate [Ventolin HFA] 2 puff INHALATION RT-Q6H PRN 02/20/20 03/15/20 Escitalopram [Lexapro] 10 mg PO DAILY 02/20/20 03/15/20 Allergies Allergy/AdvReac Type Severity Reaction Status Date / Time amoxicillin Allergy Dyspnea Verified 04/03/20 14:15 sulfamethoxazole Allergy Unknown Verified 04/03/20 14:15 [From Bactrim] Review of Systems ROS Statement: Those systems with pertinent positive or pertinent negative responses have been documented in the HPI. ROS Other: All systems not noted in ROS Statement are negative. Past Medical History Past Medical History: Asthma Additional Past Medical History / Comment(s): DDD, chronic back pain History of Any Multi-Drug Resistant Organisms: None Reported Past Surgical History: Section, Hysterectomy Additional Past Surgical History / Comment(s): pain services procedures, back surgery 01/2019 Past Anesthesia/Blood Transfusion Reactions: No Reported Reaction Past Psychological History: Depression Smoking Status: Former smoker Past Alcohol Use History: Abuse, Daily, Heavy Past Drug Use History: None Reported General Exam Limitations: no limitations General appearance: alert, in no apparent distress Head exam: Present: atraumatic, normocephalic, normal inspection Eye exam: Present: normal appearance, PERRL, EOMI. Absent: scleral icterus, co njunctival injection, periorbital swelling ENT exam: Present: normal exam, mucous membranes moist Neck exam: Present: normal inspection, full ROM. Absent: tenderness, meningismus, lymphadenopathy Respiratory exam: Present: normal lung sounds bilaterally. Absent: respiratory distress, wheezes, rales, rhonchi, stridor Cardiovascular Exam: Present: regular rate, normal rhythm, normal heart sounds. Absent: systolic murmur, diastolic murmur, rubs, gallop, clicks GI/Abdominal exam: Present: soft, normal bowel sounds. Absent: distended, tenderness, guarding, rebound, rigid Back exam: Absent: full ROM (45 degrees flexion), CVA tenderness (R), CVA tenderness (L), vertebral tenderness Neurological exam: Present: alert, normal gait Psychiatric exam: Present: normal affect, normal mood Course Vital Signs 04/03/20 04/03/20 14:07 14:32 Temperature 99.8 F H 98.4 F Pulse Rate 79 Respiratory 18 Rate Blood Pressure 124/80 O2 Sat by Pulse 99 Oximetry Medical Decision Making - Medical Decision Making Patient initially presents with a temperature of 99.8. However she denies any fevers at home. This was repeated several times in the emergency room and is in the 98. No weakness of the legs, bladder or bowel changes, numbness or tingling in the groin her buttock, or radicular pain. CBC is unremarkable. White blood cell count is normal. CMP unremarkable. CRP only minimally elevated 14.7. Urinalysis does not show evidence of infection. Patient was given pain medi cation and had significant improvement in pain. Patient is ambulatory. Case was discussed with Dr. Barrera. At this time patient can be discharged home to follow up with her doctor and surgeon. However she is to return here if she has any worsening symptoms including fevers. She is agreeable to this. Patient also reports that she has been discharged from 6 pain doctors and is requesting a referral to another pain doctor. I did discuss that this needs to be done through primary care. - Lab Data Result diagrams: 04/03/20 14:44 04/03/20 14:44 Lab Results 04/03/20 04/03/20 04/03/20 Range/Units 14:44 14:44 14:44 WBC 7.6 (3.8-10.6) k/uL RBC 4.91 (3.80-5.40) m/uL Hgb 14.8 (11.4-16.0) gm/dL Hct 44.2 (34.0-46.0) % MCV 90.0 (80.0-100.0) fL MCH 30.1 (25.0-35.0) pg MCHC 33.4 (31.0-37.0) g/dL RDW 13.4 (11.5-15.5) % Plt Count 279 (150-450) k/uL Neutrophils % 52 % Lymphocytes % 36 % Monocytes % 5 % Eosinophils % 4 % Basophils % 1 % Neutrophils # 4.0 (1.3-7.7) k/uL Lymphocytes # 2.8 (1.0-4.8) k/uL Monocytes # 0.4 (0-1.0) k/uL Eosinophils # 0.3 (0-0.7) k/uL Basophils # 0.1 (0-0.2) k/uL Sodium 141 (137-145) mmol/L Potassium 3.8 (3.5-5.1) mmol/L Chloride 110 H (98-107) mmol/L Carbon Dioxide 24 (22-30) mmol/L Anion Gap 7 mmol/L BUN 17 (7-17) mg/dL Creatinine 0.72 (0.52-1.04) mg/dL Est GFR (CKD-EPI)AfAm >90 (>60 ml/min/1.73 sqM) Est GFR (CKD-EPI)NonAf >90 (>60 ml/min/1.73 sqM) Glucose 88 (74-99) mg/dL Plasma Lactic Acid Chris 1.1 (0.7-2.0) mmol/L Calcium 9.4 (8.4-10.2) mg/dL Total Bilirubin 0.4 (0.2-1.3) mg/dL AST 35 (14-36) U/L ALT 25 (4-34) U/L Alkaline Phosphatase 91 (38-126) U/L C-Reactive Protein 14.7 H (<10.0) mg/L Total Protein 6.9 (6.3-8.2) g/dL Albumin 4.1 (3.5-5.0) g/dL Urine Color Urine Appearance (Clear) Urine pH (5.0-8.0) Ur Specific [place] (1.001-1.035) Urine Protein (Negative) Urine Glucose (UA) (Negative) Urine Ketones (Negative) Urine Blood (Negative) Urine Nitrite (Negative) Urine Bilirubin (Negative) Urine Urobilinogen (<2.0) mg/dL Ur Leukocyte Esterase (Negative) 04/03/20 Range/Units 15:40 WBC (3.8-10.6) k/uL RBC (3.80-5.40) m/uL Hgb (11.4-16.0) gm/dL Hct (34.0-46.0) % MCV (80.0-100.0) fL MCH (25.0-35.0) pg MCHC (31.0-37.0) g/dL RDW (11.5-15.5) % Plt Count (150-450) k/uL Neutrophils % % Lymphocytes % % Monocytes % % Eosinophils % % Basophils % % Neutrophils # (1.3-7.7) k/uL Lymphocytes # (1.0-4.8) k/uL Monocytes # (0-1.0) k/uL Eosinophils # (0-0.7) k/uL Basophils # (0-0.2) k/uL Sodium (137-145) mmol/L Potassium (3.5-5.1) mmol/L Chloride (98-107) mmol/L Carbon Dioxide (22-30) mmol/L Anion Gap mmol/L BUN (7-17) mg/dL Creatinine (0.52-1.04) mg/dL Est GFR (CKD-EPI)AfAm (>60 ml/min/1.73 sqM) Est GFR (CKD-EPI)NonAf (>60 ml/min/1.73 sqM) Glucose (74-99) mg/dL Plasma Lactic Acid Chris (0.7-2.0) mmol/L Calcium (8.4-10.2) mg/dL Total Bilirubin (0.2-1.3) mg/dL AST (14-36) U/L ALT (4-34) U/L Alkaline Phosphatase (38-126) U/L C-Reactive Protein (<10.0) mg/L Total Protein (6.3-8.2) g/dL Albumin (3.5-5.0) g/dL Urine Color Yellow Urine Appearance Clear (Clear) Urine pH 5.5 (5.0-8.0) Ur Specific [place] 1.028 (1.001-1.035) Urine Protein Negative (Negative) Urine Glucose (UA) Negative (Negative) Urine Ketones Negative (Negative) Urine Blood Negative (Negative) Urine Nitrite Negative (Negative) Urine Bilirubin Negative (Negative) Urine Urobilinogen <2.0 (<2.0) mg/dL Ur Leukocyte Esterase Negative (Negative) Disposition Clinical Impression: Mechanical back pain Disposition: HOME SELF-CARE Condition: Good Instructions (If sedation given, give patient instructions): Acute Low Back Pain (ED) Additional Instructions: Please follow-up with your surgeon as well as primary care. If you have any worsening symptoms or fevers you need to return to the emergency room. Is patient prescribed a controlled substance at d/c from ED?: No Referrals: Shaun Rodriguez MD [Primary Care Provider] - 1-2 days Time of Disposition: 16:33
[2020-04-03] MEDS ORDERED: ACET/COD 300 MG/30 MG STARTER PACK 6 TAB BTL PO STA (16:32)
[2020-04-03 16:52] VITALS: BP 106/62; PULSE 61; TEMP 97.8
== END 2020-04-03 16:51 | disposition home or self-care (01) ==
LOC: EC 13:59
DX: M54.9 Dorsalgia, unspecified (principal); G89.29 Other chronic pain; R79.82 Elevated C-reactive protein (CRP); J45.909 Unspecified asthma, uncomplicated; F32.9 Major depressive disorder, single episode, unspecified; Z79.899 Other long term (current) drug therapy; Z88.2 Allergy status to sulfonamides; Z88.0 Allergy status to penicillin; Z87.891 Personal history of nicotine dependence; Z98.890 Other specified postprocedural states
CPT/HCPCS: 36415; 80053; 83605; 85025; 86140; 81003; 72100; 99284; 96374; 96375; J1170; J1885

== ENCOUNTER 2020-05-08 12:19 | Emergency (ER) | payer OTHER ==
[2020-05-08 12:25] VITALS: BP 149/84; PULSE 74; RESP 18; TEMP 98.4
[2020-05-08] MEDS ORDERED: ORPHENADRINE 30 MG/ML 2 ML VIAL IM STA (12:40)
[2020-05-08] MEDS ORDERED: ACET/COD 300 MG/30 MG STARTER PACK 6 TAB BTL PO STA (12:40)
[2020-05-08] MEDS ORDERED: KETOROLAC 15 MG/ML 1 ML VIAL IM STA (12:40)
--- NOTE | 2020-05-08 12:43 | ED ---
Back Pain HPI - General Chief Complaint: Back Pain/Injury Stated Complaint: Back Pain Time Seen by Provider: 05/08/20 12:29 Source: patient, RN notes reviewed, old records reviewed Limitations: no limitations - History of Present Illness Initial Comments: Patient is a 34-year-old female presents emergency room sitting but a chronic lower back pain. She reports that she got a history of lumbar spine fusion surgery years ago at [facility]. She reports that she is seen in the emergency department a month ago. At that time Patient was discharged and advised follow up with pain management and primary care doctor but she has not done so at this time. Patient denies any saddle anesthesias. She reports that her pain is worse with movements and doing light housework at home. She denies any peripheral paresthesias. She does report the pain seems to radiate more towards the left hip but nothing down the leg completely. Patient denies falls or trauma. - Related Data Home Medications Medication Instructions Recorded Confirmed Ibuprofen [Motrin] 800 mg PO DAILY PRN 07/25/17 03/15/20 Albuterol Sulfate [Ventolin HFA] 2 puff INHALATION RT-Q6H PRN 02/20/20 03/15/20 Escitalopram [Lexapro] 10 mg PO DAILY 02/20/20 03/15/20 Previous Rx's Medication Instructions Recorded Cyclobenzaprine [Flexeril] 10 mg PO TID #12 tab 05/08/20 Ibuprofen [Motrin] 600 mg PO Q8HR PRN #20 tab 05/08/20 Allergies Allergy/AdvReac Type Severity Reaction Status Date / Time amoxicillin Allergy Dyspnea Verified 05/08/20 12:25 sulfamethoxazole Allergy Unknown Verified 05/08/20 12:25 [From Bactrim] Review of Systems ROS Statement: Those systems with pertinent positive or pertinent negative responses have been documented in the HPI. ROS Other: All systems not noted in ROS Statement are negative. Past Medical History Past Medical History: Asthma Additional Past Medical History / Comment(s): DDD, chronic back pain History of Any Multi-Drug Resistant Organisms: None Reported Past Surgical History: Section, Hysterectomy Additional Past Surgical History / Comment(s): pain services procedures, back surgery 01/2019 Past Anesthesia/Blood Transfusion Reactions: No Reported Reaction Past Psychological History: Depression Smoking Status: Former smoker Past Alcohol Use History: Abuse, Daily, Heavy Past Drug Use History: None Reported General Exam - General Exam Comments Initial Comments: Patient denies Limitations: no limitations General appearance: alert, in no apparent distress Head exam: Present: atraumatic, normocephalic, normal inspection Eye exam: Present: normal appearance, PERRL, EOMI. Absent: scleral icterus, conjunctival injection, periorbital swelling ENT exam: Present: normal exam, mucous membranes moist Neck exam: Present: normal inspection. Absent: tenderness, meningismus, lymphadenopathy Respiratory exam: Present: normal lung sounds bilaterally. Absent: respiratory distress, wheezes, rales, rhonchi, stridor Cardiovascular Exam: Present: regular rate, normal rhythm, normal heart sounds. Absent: systolic murmur, diastolic murmur, rubs, gallop, clicks GI/Abdominal exam: Present: soft, normal bowel sounds. Absent: distended, tenderness, guarding, rebound, rigid Extremities exam: Present: normal inspection, full ROM, normal capillary refill, other (tenderness over lumbar paraspinal muscles). Absent: tenderness, pedal edema, joint swelling, calf tenderness Back exam: Present: normal inspection Psychiatric exam: Present: normal affect, normal mood Skin exam: Present: warm, dry, intact, normal color. Absent: rash Course Vital Signs 05/08/20 12:22 Temperature 98.4 F Pulse Rate 74 Respiratory 18 Rate Blood Pressure 149/84 O2 Sat by Pulse 100 Oximetry Medical Decision Making - Medical Decision Making 54-year-old female with chronic back pain. She was seen in emergency department one month ago. 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 She reports her pain since mechanical worse with certain movements as well as light housework at home. Patient at this time has no red flag symptoms including falls or trauma weight loss. Denies any fever. She denies any saddle anesthesias. At this time Patient will be given IM pain medication and advised following up with pain medicine specialist. She is agreeable to this plan. Given some information for follow him as for pain management. All questions answered return parameters were discussed. Disposition Clinical Impression: Chronic back pain Disposition: HOME SELF-CARE Condition: Good Instructions (If sedation given, give patient instructions): Chronic Back Pain (DC) Additional Instructions: Please use medication as discussed. Please follow up with family doctor if symptoms have not improved over the next two days. Please return to the emergency room if your symptoms increase or worsen or for any other concerns. Prescriptions: Cyclobenzaprine [Flexeril] 10 mg PO TID #12 tab Ibuprofen [Motrin] 600 mg PO Q8HR PRN #20 tab PRN Reason: Pain Is patient prescribed a controlled substance at d/c from ED?: No Referrals: Shaun Rodriguez MD [Primary Care Provider] - 1-2 days Eugenie Good MD [STAFF PHYSICIAN] - 1-2 days Time of Disposition: 12:42
== END 2020-05-08 12:55 | disposition home or self-care (01) ==
LOC: EC 12:19
DX: G89.29 Other chronic pain (principal); M54.9 Dorsalgia, unspecified; M79.605 Pain in left leg; J45.909 Unspecified asthma, uncomplicated; F32.9 Major depressive disorder, single episode, unspecified; Z79.899 Other long term (current) drug therapy; Z79.51 Long term (current) use of inhaled steroids; Z88.0 Allergy status to penicillin; Z88.2 Allergy status to sulfonamides; Z87.891 Personal history of nicotine dependence; Z98.1 Arthrodesis status
CPT/HCPCS: 96372 ×2; 99283; J2360; J1885

== ENCOUNTER 2020-06-05 18:18 | Emergency (ER) | payer OTHER ==
[2020-06-05 18:39] VITALS: BP 142/83; PULSE 76; RESP 18; TEMP 97.7
[2020-06-05] MEDS ORDERED: ORPHENADRINE 30 MG/ML 2 ML VIAL IM STA (20:03)
[2020-06-05] MEDS ORDERED: KETOROLAC 15 MG/ML 1 ML VIAL IM STA (20:03)
--- NOTE | 2020-06-05 20:05 | ED ---
Back Pain HPI - General Chief Complaint: Back Pain/Injury Stated Complaint: Shoulder,Back pain Time Seen by Provider: 06/05/20 19:48 Source: patient Limitations: no limitations - History of Present Illness Initial Comments: 54 year old female patient presents to the emergency department today for evaluation of upper back pain bilaterally. Patient states she has been having pain on the right side for quite some time after a shoulder injury. Patient states that she has been following with orthopedics to resolve this. Patient states over the last few days she has noticed an increase in pain on the left side in the same area. Denies any new injury. Denies taking any medication for her symptoms. Denies any chest pain or shortness of breath. Denies increased pain with deep inspiration. Denies fever or chills. States the pain does worsen with movement and when she lays back against the area. Patient denies any recent rash, cough, abdominal pain, nausea, vomiting, diarrhea, constipation, numbness, tingling, dizziness, weakness, hematuria, dysuria, urinary urgency, urinary frequency, headache, visual changes, or any other complaints. - Related Data Home Medications Medication Instructions Recorded Confirmed Ibuprofen [Motrin] 800 mg PO DAILY PRN 07/25/17 03/15/20 Albuterol Sulfate [Ventolin HFA] 2 puff INHALATION RT-Q6H PRN 02/20/20 03/15/20 Escitalopram [Lexapro] 10 mg PO DAILY 02/20/20 03/15/20 Previous Rx's Medication Instructions Recorded Cyclobenzaprine [Flexeril] 10 mg PO TID #12 tab 05/08/20 Ibuprofen [Motrin] 600 mg PO Q8HR PRN #20 tab 05/08/20 Naproxen [EC-Naprosyn] 500 mg PO BID PRN #30 tablet. 06/05/20 Orphenadrine [Norflex] 100 mg PO Q12H #10 tablet.er 06/05/20 Allergies Allergy/AdvReac Type Severity Reaction Status Date / Time amoxicillin Allergy Dyspnea Verified 06/05/20 18:39 sulfamethoxazole Allergy Unknown Verified 06/05/20 18:39 [From Bactrim] Review of Systems ROS Statement: Those systems with pertinent positive or pertinent negative responses have been documented in the HPI. ROS Other: All systems not noted in ROS Statement are negative. Past Medical History Past Medical History: Asthma Additional Past Medical History / Comment(s): DDD, chronic back pain History of Any Multi-Drug Resistant Organisms: None Reported Past Surgical History: Section, Hysterectomy Additional Past Surgical History / Comment(s): pain services procedures, back surgery 01/2019 Past Anesthesia/Blood Transfusion Reactions: No Reported Reaction Past Psychological History: Depression Smoking Status: Former smoker Past Alcohol Use History: Abuse, Daily, Heavy Past Drug Use History: None Reported General Exam Limitations: no limitations General appearance: alert, in no apparent distress, other (This is a well- developed, well-nourished adult female patient in no acute distress. Vital signs upon presentation are temperature 97.7F, pulse 76, respirations 18, blood pressure 142/83, pulse ox 98% on room air.) Eye exam: Present: normal appearance, PERRL, EOMI. Absent: scleral icterus, conjunctival injection, periorbital swelling ENT exam: Present: normal exam, normal oropharynx Respiratory exam: Present: normal lung sounds bilaterally. Absent: respiratory distress, wheezes, rales, rhonchi, stridor Cardiovascular Exam: Present: regular rate, normal rhythm, normal heart sounds. Absent: systolic murmur, diastolic murmur, rubs, gallop, clicks GI/Abdominal exam: Present: soft, normal bowel sounds. Absent: distended, tenderness, guarding, rebound, rigid Extremities exam: Present: normal inspection, full ROM, normal capillary refill. Absent: tenderness, pedal edema, joint swelling, calf tenderness Back exam: Present: normal inspection, tenderness (Over the bilateral latissimus dorsi muscles. No overlying skin changes or erythema. ). Absent: vertebral tenderness Neurological exam: Present: alert, oriented X3, CN II-XII intact Psychiatric exam: Present: normal affect, normal mood Skin exam: Present: warm, dry, intact, normal color. Absent: rash Course Vital Signs 06/05/20 18:37 Temperature 97.7 F Pulse Rate 76 Respiratory 18 Rate Blood Pressure 142/83 O2 Sat by Pulse 98 Oximetry Medical Decision Making - Medical Decision Making 54-year-old female patient presents to the emergency department today for evaluation of bilateral upper back pain. Specifically noted over the bilateral latissimus dorsi muscles. No overlying skin changes. No increased pain with deep breathing denies chest pain. Vital signs are acceptable. No imaging is necessary at this time will discharge with prescription for pain medication and muscle relaxer. She is given orthopedic follow-up. She verbalizes understanding and agrees with this plan Disposition Clinical Impression: Muscle spasm, Back pain Disposition: HOME SELF-CARE Condition: Good Instructions (If sedation given, give patient instructions): Muscle Spasm (ED), Back Pain (ED) Additional Instructions: Take medications as directed. Follow up with the sales support specialist for further evaluation of your pain. Follow up with your primary care physician for recheck in 1-2 days. Return to the emergency department immediately for any new, worsening, or concerning symptoms. Prescriptions: Naproxen [EC-Naprosyn] 500 mg PO BID PRN #30 tablet.dr LOPEZ Reason: Pain Orphenadrine [Norflex] 100 mg PO Q12H #10 tablet.er Is patient prescribed a controlled substance at d/c from ED?: No Referrals: Shaun Rodriguez MD [Primary Care Provider] - 1-2 days Sebas Abdul DO [Doctor of Osteopathic Medicine] - 1-2 days Time of Disposition: 20:04
== END 2020-06-05 20:23 | disposition home or self-care (01) ==
LOC: EC 18:18
DX: M54.9 Dorsalgia, unspecified (principal); M62.830 Muscle spasm of back; J45.909 Unspecified asthma, uncomplicated; F32.9 Major depressive disorder, single episode, unspecified; Z79.899 Other long term (current) drug therapy; Z88.0 Allergy status to penicillin; Z88.2 Allergy status to sulfonamides; Z87.891 Personal history of nicotine dependence
CPT/HCPCS: 99283; 96372 ×2; J2360; J1885

== ENCOUNTER → 2020-07-30 | Outpatient (CLI) | payer OTHER | END | disposition home or self-care (01) | LOC: LABWHC1 10:37 | PROVIDERS: ATTEND Nurse Practitioner | DX: B34.9 Viral infection, unspecified (principal); Z20.822 Contact with and (suspected) exposure to COVID-19 | CPT/HCPCS: 87502; U0003; C9803; U0005 ==

== ENCOUNTER 2020-08-05 17:48 | Emergency (ER) | payer OTHER ==
[2020-08-05 17:52] VITALS: BP 135/71; PULSE 72; RESP 18; TEMP 98.8
[2020-08-05] MEDS ORDERED: HYDROcodone/APAP 5-325MG 1 EACH TAB PO STA (18:11)
--- NOTE | 2020-08-05 18:17 | ED ---
General Adult HPI - General Chief complaint: Back Pain/Injury Stated complaint: Back Pain Time Seen by Provider: 08/05/20 17:55 Source: patient Mode of arrival: ambulatory Limitations: no limitations - History of Present Illness Initial comments: Dictation was produced using [employer] dictation software. please excuse any grammatical, word or spelling errors. This patient was cared for during a federal and state declared state of emergency secondary to Covid 19 Chief Complaint: 54-year-old female presents with back pain. History of Present Illness: Patient is a 54-year-old female she has past medical history of back surgery. 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 Patient states she's notices pain with movement. Patient has a numbness and paresthesias to the lower extremity is. Denies any bowel or bladder incontinence. Denies any trauma. The ROS documented in this emergency department record has been reviewed and confirmed by me. Those systems with pertinent positive or negative responses have been documented in the HPI. All other systems are other negative and/or noncontributory. PHYSICAL EXAM: General Impression: Alert and oriented x3, not in acute distress HEENT: Normocephalic atraumatic, extra-ocular movements intact, pupils equal and reactive to light bilaterally, mucous membranes moist. Cardiovascular: Heart regular rate and rhythm Chest: Able to complete full sentences, no retractions, no tachypnea Abdomen: abdomen soft, non-tender, non-distended, no organomegaly Musculoskeletal: Pulses present and equal in all extremities, no peripheral edema Motor: no focal deficits noted Neurological: CN II-XII grossly intact, no focal motor or sensory deficits noted Skin: Intact with no visualized rashes Psych: Normal affect and mood ED course: 54-year-old female presents with atraumatic back pain. She has past medical history of back surgery. She does not have any high-risk features. Signs upon arrival are within acceptable limits. Lumbar spine x-rays unremarkable. Patient given [place] as. Patient evaluated bedside stable medical condition. Patient given by mouth analgesic prescription. Patient she is advised to follow-up with her primary care physician or back surgeon for outpatient management of back pain. Presentation secondary to back strain. - Related Data Home Medications Medication Instructions Recorded Confirmed Ibuprofen [Motrin] 800 mg PO DAILY PRN 07/25/17 03/15/20 Albuterol Sulfate [Ventolin HFA] 2 puff INHALATION RT-Q6H PRN 02/20/20 03/15/20 Escitalopram [Lexapro] 10 mg PO DAILY 02/20/20 03/15/20 Previous Rx's Medication Instructions Recorded Cyclobenzaprine [Flexeril] 10 mg PO TID #12 tab 05/08/20 Ibuprofen [Motrin] 600 mg PO Q8HR PRN #20 tab 05/08/20 Naproxen [EC-Naprosyn] 500 mg PO BID PRN #30 tablet. 06/05/20 Orphenadrine [Norflex] 100 mg PO Q12H #10 tablet.er 06/05/20 HYDROcodone/APAP 5-325MG [[place] 1 tab PO Q6HR PRN 3 Days #12 tab 08/05/20 5-325] Allergies Allergy/AdvReac Type Severity Reaction Status Date / Time amoxicillin Allergy Dyspnea Verified 08/05/20 17:52 Penicillins Allergy Unknown Verified 08/05/20 17:52 sulfamethoxazole Allergy Unknown Verified 08/05/20 17:52 [From Bactrim] Review of Systems ROS Statement: Those systems with pertinent positive or pertinent negative responses have been documented in the HPI. ROS Other: All systems not noted in ROS Statement are negative. Past Medical History Past Medical History: Asthma Additional Past Medical History / Comment(s): DDD, chronic back pain History of Any Multi-Drug Resistant Organisms: None Reported Past Surgical History: Section, Hysterectomy Additional Past Surgical History / Comment(s): pain services procedures, back s urgery 01/2019 Past Anesthesia/Blood Transfusion Reactions: No Reported Reaction Past Psychological History: Depression Smoking Status: Current every day smoker Past Alcohol Use History: None Reported, Abuse, Daily, Heavy Past Drug Use History: None Reported General Exam Limitations: no limitations Course Vital Signs 08/05/20 17:50 Temperature 98.8 F Pulse Rate 72 Respiratory 18 Rate Blood Pressure 135/71 O2 Sat by Pulse 99 Oximetry Disposition Clinical Impression: Back strain Disposition: HOME SELF-CARE Condition: Good Instructions (If sedation given, give patient instructions): Acute Low Back Pain (ED) Prescriptions: HYDROcodone/APAP 5-325MG [[place] 5-325] 1 tab PO Q6HR PRN 3 Days #12 tab PRN Reason: Severe Pain Is patient prescribed a controlled substance at d/c from ED?: Yes If prescribed controlled substance>3 days was MAPS reviewed?: Prescribed <3 Days Referrals: Shaun Rodriguez MD [Primary Care Provider] - 1-2 days Time of Disposition: 18:38
--- NOTE | 2020-08-05 18:31 | XR ---
EXAMINATION TYPE: XR lumbar spine 2 or 3V DATE OF EXAM: 08/05/2020 COMPARISON: 04/03/2020 pain. Lifting injury. TECHNIQUE: 3 views FINDINGS: There is posterior fusion surgery with rods and screws from L4 to S1. There is disc prosthe sis at L4-5 and L5-S1. There is no compression fracture. There is mild disc space narrowing in the mi d and lower lumbar spine. The sacroiliac joints appear intact. I see no focal bone destruction. IMPRESSION: Posterior fusion surgery. No acute bony abnormality. No change compared to old exam.
== END 2020-08-05 18:43 | disposition home or self-care (01) ==
LOC: EC 17:48
DX: S39.012A Strain of muscle, fascia and tendon of lower back, initial encounter (principal); J45.909 Unspecified asthma, uncomplicated; F32.9 Major depressive disorder, single episode, unspecified; G89.29 Other chronic pain; M54.9 Dorsalgia, unspecified; F10.10 Alcohol abuse, uncomplicated; F17.200 Nicotine dependence, unspecified, uncomplicated; Z79.51 Long term (current) use of inhaled steroids; Z79.899 Other long term (current) drug therapy; Z88.0 Allergy status to penicillin; Z88.2 Allergy status to sulfonamides; X50.9XXA Other and unspecified overexertion or strenuous movements or postures, initial encounter; Y93.89 Activity, other specified
CPT/HCPCS: 72100; 99283

== ENCOUNTER 2020-09-05 21:14 | Emergency (ER) | payer OTHER ==
[2020-09-05 21:18] VITALS: RESP 18; TEMP 98.1
[2020-09-05] MEDS ORDERED: KETOROLAC 15 MG/ML 1 ML VIAL IVP STA (22:16)
[2020-09-05] MEDS ORDERED: ORPHENADRINE 30 MG/ML 2 ML VIAL IVP STA (22:16)
[2020-09-05] MEDS ORDERED: SODIUM CHLORIDE 0.9% 1,000 ML IV STA (22:16)
[2020-09-05 22:42] LABS: Basophils # (A) 0.1 k/uL (0-0.2); Basophils % (A) 1 %; Eosinophils # (A) 0.5 k/uL (0-0.7); Eosinophils % (A) 5 %; HGB 14.2 gm/dL (11.4-16.0); Lymphocytes # (A) 3.2 k/uL (1.0-4.8); Lymphocytes % (A) 33 %; MCH 30.4 pg (25.0-35.0); MCHC 33.9 g/dL (31.0-37.0); MCV 89.7 fL (80.0-100.0); Mean Platelet Volume 8.4; Monocytes # (A) 0.5 k/uL (0-1.0); Monocytes % (A) 5 %; Neutrophils # (A) 5.4 k/uL (1.3-7.7); Neutrophils % (A) 55 %; Platelet Count 294 k/uL (150-450); RBC 4.68 m/uL (3.80-5.40); RDW 12.9 % (11.5-15.5); WBC 9.8 k/uL (3.8-10.6)
[2020-09-05 22:43] LABS: Appearance,Urine Clear (Clear); Bilirubin,Urine Negative (Negative); Blood,Urine Negative (Negative); Color,Urine Colorless; Glucose,Urine (UA) Negative (Negative); Ketones,Urine Negative (Negative); Leukocyte Esterase,Urine Negative (Negative); Nitrite,Urine Negative (Negative); PH, Urine 5.5 (5.0-8.0); Protein,Urine Negative (Negative); Specific Gravity,Urine 1.006 (1.001-1.035); Urobilinogen,Urine <2.0 mg/dL (<2.0)
--- NOTE | 2020-09-05 22:54 | XR ---
EXAMINATION TYPE: XR chest 2V DATE OF EXAM: 09/05/2020 COMPARISON: January 11, 2020 HISTORY: Chest pain TECHNIQUE: 2 views FINDINGS: There is slight blunting left costophrenic angle. Heart and mediastinum are normal. There a re no hilar masses. Bony thorax is intact. IMPRESSION: Minimal pleural reaction and subsegmental atelectasis left lung base is increased compare d to old exam. Normal heart.
[2020-09-05 22:55] LABS: D-Dimer 0.4 mg/L FEU (<0.60); INR 1.1 (<1.2); Partial Thromboplastin Time 23.7 sec (22.0-30.0); Prothrombin Time 11.9 sec (9.0-12.0)
[2020-09-05 23:01] LABS: ALT 41 U/L (4-34); AST 38 U/L (14-36); African American GFR (CKD) >90 (>60 ml/min/1.73 sqM); Alkaline Phosphatase 91 U/L (38-126); Anion Gap 11 mmol/L; Blood Urea Nitrogen 15 mg/dL (7-17); Calcium 9.7 mg/dL (8.4-10.2); Carbon Dioxide 23 mmol/L (22-30); Chloride 107 mmol/L (98-107); Glucose 101 mg/dL (74-99); Lipase 119 U/L (23-300); Magnesium 2.1 mg/dL (1.6-2.3); Non-African American GFR(CKD) >90 (>60 ml/min/1.73 sqM); Potassium 3.8 mmol/L (3.5-5.1); Sodium 141 mmol/L (137-145); Total Bilirubin 0.4 mg/dL (0.2-1.3); Total Protein 6.9 g/dL (6.3-8.2)
--- NOTE | 2020-09-05 23:52 | ED ---
General Adult HPI - General Chief complaint: Back Pain/Injury Stated complaint: Upper Back Pain Time Seen by Provider: 09/05/20 21:43 Source: patient Mode of arrival: ambulatory Limitations: no limitations - History of Present Illness Initial comments: 54 year-old female patient presents to the emergency department for evaluation of upper back pain between her shoulder blades. Patient states she has a history of chronic back pain and has had pain in this area before. States her current symptoms started 3-4 days ago. Patient states symptoms do worsen with movement. States that she was shoveling snow and ice over the last 2 weekends which seemed to make her pain worse. Denies any radiation of the pain through to her chest. Denies any shortness of breath. Denies dizziness or weakness. Denies nausea or vomiting. Denies abdominal pain. Patient denies any recent rash, fever, chills, cough, diarrhea, constipation, back pain, numbness, tingling, hematuria, dysuria, urinary urgency, urinary frequency, headache, visual changes, or any other complaints. - Related Data Home Medications Medication Instructions Recorded Confirmed Ibuprofen [Motrin] 800 mg PO DAILY PRN 07/25/17 03/15/20 Albuterol Sulfate [Ventolin HFA] 2 puff INHALATION RT-Q6H PRN 02/20/20 03/15/20 Escitalopram [Lexapro] 10 mg PO DAILY 02/20/20 03/15/20 Previous Rx's Medication Instructions Recorded Cyclobenzaprine [Flexeril] 10 mg PO TID #12 tab 05/08/20 Ibuprofen [Motrin] 600 mg PO Q8HR PRN #20 tab 05/08/20 Naproxen [EC-Naprosyn] 500 mg PO BID PRN #30 tablet. 06/05/20 Orphenadrine [Norflex] 100 mg PO Q12H #10 tablet.er 06/05/20 HYDROcodone/APAP 5-325MG [[place] 1 tab PO Q6HR PRN 3 Days #12 tab 08/05/20 5-325] Allergies Allergy/AdvReac Type Severity Reaction Status Date / Time amoxicillin Allergy Dyspnea Verified 09/05/20 21:18 Penicillins Allergy Unknown Verified 09/05/20 21:18 sulfamethoxazole Allergy Unknown Verified 09/05/20 21:18 [From Bactrim] Review of Systems ROS Statement: Those systems with pertinent positive or pertinent negative responses have been documented in the HPI. ROS Other: All systems not noted in ROS Statement are negative. Past Medical History Past Medical History: Asthma Additional Past Medical History / Comment(s): DDD, chronic back pain History of Any Multi-Drug Resistant Organisms: None Reported Past Surgical History: Section, Hysterectomy Additional Past Surgical History / Comment(s): pain services procedures, back surgery 01/2019 Past Anesthesia/Blood Transfusion Reactions: No Reported Reaction Past Psychological History: Depression Smoking Status: Current every day smoker Past Alcohol Use History: None Reported, Abuse, Daily, Heavy Past Drug Use History: None Reported General Exam Limitations: no limitations General appearance: alert, in no apparent distress, other (This is a well- developed, well-nourished adult female patient in no acute distress. Vital signs upon presentation are temperature 98.1F, pulse 73, respirations 18, blood pressure 131/73, pulse ox 99% on room air.) Eye exam: Present: normal appearance, PERRL, EOMI. Absent: scleral icterus, conjunctival injection, periorbital swelling ENT exam: Present: normal exam, normal oropharynx, mucous membranes moist Respiratory exam: Present: normal lung sounds bilaterally. Absent: respiratory distress, wheezes, rales, rhonchi, stridor Cardiovascular Exam: Present: regular rate, normal rhythm, normal heart sounds. Absent: systolic murmur, diastolic murmur, rubs, gallop, clicks GI/Abdominal exam: Present: soft, normal bowel sounds. Absent: distended, tenderness, guarding, rebound, rigid Back exam: Present: paraspinal tenderness (upper thoracic) Neurological exam: Present: alert, oriented X3, CN II-XII intact Psychiatric exam: Present: normal affect, normal mood Skin exam: Present: warm, dry, intact, normal color. Absent: rash Course Vital Signs 09/05/20 09/06/20 21:15 00:10 Temperature 98.1 F Pulse Rate 73 63 Respiratory 18 18 Rate Blood Pressure 131/73 129/73 O2 Sat by Pulse 99 100 Oximetry EKG Findings - EKG Comments: EKG Findings:: EKG obtained at 2258 shows sinus bradycardia with an incomplete right bundle branch block. Ventricular rate is 55, OH interval 158, QRS duration 96, QT 440, QTC 420. No evidence of ST elevation or depression. Medical Decision Making - Medical Decision Making 54-year-old female patient presents to the emergency department today for evaluation of upper back pain started 3-4 days ago after shoveling snow and ice. Physical examination was unremarkable. Lungs are clear to auscultation. Labs reviewed and are unremarkable. Troponin negative. D-dimer negative. EKG showed sinus rhythm with no ST elevation or depression. Chest x-ray is negative. Upon reevaluation patient is resting couple in bed. States pain medicine did not help. She be given an additional dose. Symptoms seem consistent with musculoskeletal back pain especially since patient has had similar type pain in the past. She'll be instructed to follow-up with the [facility] physician for recheck in 1-2 days. Return parameters were discussed in detail. She verbalizes understanding and agrees with this plan. Case discussed with my attending Dr. Banda. - Lab Data Result diagrams: 09/05/20 22:31 09/05/20 22:31 Lab Results 09/05/20 09/05/20 09/05/20 Range/Units 22:31 22:31 22:31 WBC 9.8 (3.8-10.6) k/uL RBC 4.68 (3.80-5.40) m/uL Hgb 14.2 (11.4-16.0) gm/dL Hct 42.0 (34.0-46.0) % MCV 89.7 (80.0-100.0) fL MCH 30.4 (25.0-35.0) pg MCHC 33.9 (31.0-37.0) g/dL RDW 12.9 (11.5-15.5) % Plt Count 294 (150-450) k/uL MPV 8.4 Neutrophils % 55 % Lymphocytes % 33 % Monocytes % 5 % Eosinophils % 5 % Basophils % 1 % Neutrophils # 5.4 (1.3-7.7) k/uL Lymphocytes # 3.2 (1.0-4.8) k/uL Monocytes # 0.5 (0-1.0) k/uL Eosinophils # 0.5 (0-0.7) k/uL Basophils # 0.1 (0-0.2) k/uL PT 11.9 (9.0-12.0) sec INR 1.1 (<1.2) APTT 23.7 (22.0-30.0) sec D-Dimer 0.40 (<0.60) mg/L FEU Sodium 141 (137-145) mmol/L Potassium 3.8 (3.5-5.1) mmol/L Chloride 107 (98-107) mmol/L Carbon Dioxide 23 (22-30) mmol/L Anion Gap 11 mmol/L BUN 15 (7-17) mg/dL Creatinine 0.64 (0.52-1.04) mg/dL Est GFR (CKD-EPI)AfAm >90 (>60 ml/min/1.73 sqM) Est GFR (CKD-EPI)NonAf >90 (>60 ml/min/1.73 sqM) Glucose 101 H (74-99) mg/dL Calcium 9.7 (8.4-10.2) mg/dL Magnesium 2.1 (1.6-2.3) mg/dL Total Bilirubin 0.4 (0.2-1.3) mg/dL AST 38 H (14-36) U/L ALT 41 H (4-34) U/L Alkaline Phosphatase 91 (38-126) U/L Troponin I (0.000-0.034) ng/mL Total Protein 6.9 (6.3-8.2) g/dL Albumin 4.0 (3.5-5.0) g/dL Lipase 119 (23-300) U/L Urine Color Urine Appearance (Clear) Urine pH (5.0-8.0) Ur Specific [place] (1.001-1.035) Urine Protein (Negative) Urine Glucose (UA) (Negative) Urine Ketones (Negative) Urine Blood (Negative) Urine Nitrite (Negative) Urine Bilirubin (Negative) Urine Urobilinogen (<2.0) mg/dL Ur Leukocyte Esterase (Negative) 09/05/20 09/05/20 Range/Units 22:31 22:35 WBC (3.8-10.6) k/uL RBC (3.80-5.40) m/uL Hgb (11.4-16.0) gm/dL Hct (34.0-46.0) % MCV (80.0-100.0) fL MCH (25.0-35.0) pg MCHC (31.0-37.0) g/dL RDW (11.5-15.5) % Plt Count (150-450) k/uL MPV Neutrophils % % Lymphocytes % % Monocytes % % Eosinophils % % Basophils % % Neutrophils # (1.3-7.7) k/uL Lymphocytes # (1.0-4.8) k/uL Monocytes # (0-1.0) k/uL Eosinophils # (0-0.7) k/uL Basophils # (0-0.2) k/uL PT (9.0-12.0) sec INR (<1.2) APTT (22.0-30.0) sec D-Dimer (<0.60) mg/L FEU Sodium (137-145) mmol/L Potassium (3.5-5.1) mmol/L Chloride (98-107) mmol/L Carbon Dioxide (22-30) mmol/L Anion Gap mmol/L BUN (7-17) mg/dL Creatinine (0.52-1.04) mg/dL Est GFR (CKD-EPI)AfAm (>60 ml/min/1.73 sqM) Est GFR (CKD-EPI)NonAf (>60 ml/min/1.73 sqM) Glucose (74-99) mg/dL Calcium (8.4-10.2) mg/dL Magnesium (1.6-2.3) mg/dL Total Bilirubin (0.2-1.3) mg/dL AST (14-36) U/L ALT (4-34) U/L Alkaline Phosphatase (38-126) U/L Troponin I <0.012 (0.000-0.034) ng/mL Total Protein (6.3-8.2) g/dL Albumin (3.5-5.0) g/dL Lipase (23-300) U/L Urine Color Colorless Urine Appearance Clear (Clear) Urine pH 5.5 (5.0-8.0) Ur Specific [place] 1.006 (1.001-1.035) Urine Protein Negative (Negative) Urine Glucose (UA) Negative (Negative) Urine Ketones Negative (Negative) Urine Blood Negative (Negative) Urine Nitrite Negative (Negative) Urine Bilirubin Negative (Negative) Urine Urobilinogen <2.0 (<2.0) mg/dL Ur Leukocyte Esterase Negative (Negative) - Radiology Data Radiology results: report reviewed, image reviewed Two-view x-ray of the chest is obtained. Report was reviewed in its entirety. Impression by Dr. Elizondo shows minimal pleural reaction subsegmental atelectasis left lung bases increased compared to old exam. Normal heart. Disposition Clinical Impression: Upper back pain Disposition: HOME SELF-CARE Condition: Good Instructions (If sedation given, give patient instructions): Back Pain (ED) Additional Instructions: Apply warm compresses to the upper back. Take medications as directed. Follow- up with her primary care physician for recheck in 1-2 days. Return to the emergency department for any new, worsening, or concerning symptoms. Is patient prescribed a controlled substance at d/c from ED?: No Referrals: Shaun Rodriguez MD [Primary Care Provider] - 1-2 days Time of Disposition: 00:01
[2020-09-05] MEDS ORDERED: HYDROmorphone 1 MG/ML 1 ML SYRINGE IVP STA (23:59)
[2020-09-05] MEDS ORDERED: ACET/COD 300 MG/30 MG STARTER PACK 6 TAB BTL PO STA (23:59)
[2020-09-05] MEDS ORDERED: CYCLOBENZAPRINE 10MG STARTER 3 TAB BTL PO STA (23:59)
[2020-09-06 00:11] VITALS: BP 129/73; PULSE 63
== END 2020-09-06 00:15 | disposition home or self-care (01) ==
LOC: EC 21:14
DX: M54.6 Pain in thoracic spine (principal); J45.909 Unspecified asthma, uncomplicated; G89.29 Other chronic pain; M54.9 Dorsalgia, unspecified; F32.9 Major depressive disorder, single episode, unspecified; F17.200 Nicotine dependence, unspecified, uncomplicated; Z79.899 Other long term (current) drug therapy; Z88.2 Allergy status to sulfonamides; Z88.0 Allergy status to penicillin; Z98.890 Other specified postprocedural states
CPT/HCPCS: 36415; 93005; 85379; 80053; 83690; 83735; 84484; 85025; 85610; 85730; 81003; 71046; 99284; 96374; 96375 ×2; 96361 ×2; J2360; J1885

== ENCOUNTER 2020-11-02 13:44 | Emergency (ER) | payer OTHER ==
[2020-11-02 14:07] VITALS: BP 114/72; PULSE 99; RESP 20; TEMP 98.6
[2020-11-02] MEDS ORDERED: HYDROcodone/APAP 10-325MG 1 EACH TAB PO ONE (15:01)
--- NOTE | 2020-11-02 15:04 | ED ---
Back Pain [facility] - General Chief Complaint: Back Pain/Injury Stated Complaint: Low back pain Time Seen by Provider: 11/02/20 14:33 Source: patient Limitations: no limitations - History of Present Illness Initial Comments: Patient is 55-year-old woman who presents for evaluation of chronic low back pain. Patient states that ever since she had surgery a little over a year ago ([place], [place]) she has had some chronic low back pain for which she has been taking [place]. She states that she is currently out of this medication and the back pain has been flaring up a little bit. She states that she tried to get in with her physician who manages a [place] (Dr. Tervino), but has not been able to get in with him yet due to Covid restrictions. She denies any new symptoms related to the back pain. There is no radiation to the abdomen or chest or the lower extremities. No loss of bladder or bowel function. No saddle anesthesia. MD Complaint: back pain -: days(s) Similar Symptoms Previously: Yes Place: home Radiation: none Severity: moderate Quality: aching Consistency: constant Improves With: none Worsens With: none Associated Symptoms: denies other symptoms - Related Data Home Medications Medication Instructions Recorded Confirmed Ibuprofen [Motrin] 800 mg PO DAILY PRN 07/25/17 03/15/20 Albuterol Sulfate [Ventolin HFA] 2 puff INHALATION RT-Q6H PRN 02/20/20 03/15/20 Escitalopram [Lexapro] 10 mg PO DAILY 02/20/20 03/15/20 Previous Rx's Medication Instructions Recorded Cyclobenzaprine [Flexeril] 10 mg PO TID #12 tab 05/08/20 Ibuprofen [Motrin] 600 mg PO Q8HR PRN #20 tab 05/08/20 Naproxen [EC-Naprosyn] 500 mg PO BID PRN #30 tablet. 06/05/20 Orphenadrine [Norflex] 100 mg PO Q12H #10 tablet.er 06/05/20 HYDROcodone/APAP 5-325MG [[place] 1 tab PO Q6HR PRN 3 Days #12 tab 08/05/20 5-325] HYDROcodone/APAP 10-325MG [[place] 1 tab PO Q6HR PRN 3 Days #12 tab 11/02/20 10-325] Allergies Allergy/AdvReac Type Severity Reaction Status Date / Time amoxicillin Allergy Dyspnea Verified 11/02/20 14:07 Penicillins Allergy Unknown Verified 11/02/20 14:07 sulfamethoxazole Allergy Unknown Verified 11/02/20 14:07 [From Bactrim] Review of Systems ROS Statement: Those systems with pertinent positive or pertinent negative responses have been documented in the HPI. ROS Other: All systems not noted in ROS Statement are negative. Constitutional: Denies: fever, chills, weakness Respiratory: Denies: cough, dyspnea Cardiovascular: Denies: chest pain, edema Gastrointestinal: Denies: abdominal pain, vomiting, diarrhea, constipation Genitourinary: Denies: dysuria, hematuria Musculoskeletal: Reports: as per HPI, back pain Skin: Denies: rash Neurological: Denies: weakness, numbness, paresthesias Past Medical History Past Medical History: Asthma Additional Past Medical History / Comment(s): DDD, chronic back pain History of Any Multi-Drug Resistant Organisms: None Reported Past Surgical History: Section, Hysterectomy Additional Past Surgical History / Comment(s): pain services procedures, back surgery 01/2019 Past Anesthesia/Blood Transfusion Reactions: No Reported Reaction Past Psychological History: Depression Smoking Status: Current every day smoker Past Alcohol Use History: Abuse, Daily, Heavy Past Drug Use History: None Reported General Exam Limitations: no limitations General appearance: alert, in no apparent distress Head exam: Present: atraumatic, normocephalic Eye exam: Present: normal appearance. Absent: scleral icterus, conjunctival injection Neck exam: Present: normal inspection, full ROM. Absent: tenderness Respiratory exam: Present: normal lung sounds bilaterally. Absent: respiratory distress, wheezes, rales, rhonchi, stridor Cardiovascular Exam: Present: regular rate, normal rhythm, normal heart sounds. Absent: systolic murmur, diastolic murmur, rubs, gallop GI/Abdominal exam: Absent: distended, tenderness, guarding, rebound, mass, pulsatile mass Back exam: Present: normal inspection. Absent: tenderness, CVA tenderness (R), CVA tenderness (L), muscle spasm, paraspinal tenderness, vertebral tenderness Neurological exam: Present: alert, reflexes normal. Absent: motor sensory deficit Skin exam: Present: warm, dry, intact, normal color. Absent: rash Course Vital Signs 11/02/20 14:05 Temperature 98.6 F Pulse Rate 99 Respiratory 20 Rate Blood Pressure 114/72 O2 Sat by Pulse 96 Oximetry Disposition Clinical Impression: Chronic low back pain Disposition: HOME SELF-CARE Condition: Good Instructions (If sedation given, give patient instructions): Chronic Back Pain (DC) Prescriptions: HYDROcodone/APAP 10-325MG [[place] 10-325] 1 tab PO Q6HR PRN 3 Days #12 tab PRN Reason: Pain Is patient prescribed a controlled substance at d/c from ED?: Yes When asked, does pt state using other controlled substances?: No If prescribed controlled substance>3 days was MAPS reviewed?: Prescribed <3 Days If opioid is for acute pain is fill amount 7 days or less?: Yes If Rx opioid, was Start Talking consent form obtained?: Yes Referrals: Shaun Rodriguez MD [Primary Care Provider] - 1-2 days
== END 2020-11-02 15:27 | disposition home or self-care (01) ==
LOC: EC 13:44
DX: G89.29 Other chronic pain (principal); M54.5 Low back pain; J45.909 Unspecified asthma, uncomplicated; F32.9 Major depressive disorder, single episode, unspecified; F17.200 Nicotine dependence, unspecified, uncomplicated; Z88.0 Allergy status to penicillin; Z79.51 Long term (current) use of inhaled steroids; Z79.899 Other long term (current) drug therapy
CPT/HCPCS: 99283

== ENCOUNTER 2021-02-13 15:14 | Emergency (ER) | payer OTHER ==
[2021-02-13 15:20] VITALS: PULSE 98; TEMP 98.9
[2021-02-13] MEDS ORDERED: methocarbamoL 750 MG TAB PO STA (15:43)
[2021-02-13] MEDS ORDERED: HYDROcodone/APAP 5-325MG 1 EACH TAB PO STA ×2 (15:43→17:12)
[2021-02-13] MEDS ORDERED: LIDOCAINE 5% PATCH TOPICAL STA (15:43)
--- NOTE | 2021-02-13 16:05 | ED ---
General Adult HPI - General Chief complaint: Back Pain/Injury Stated complaint: L side pain Time Seen by Provider: 02/13/21 15:20 Source: patient, RN notes reviewed, old records reviewed Mode of arrival: ambulatory Limitations: no limitations - History of Present Illness Initial comments: Patient is a 55-year-old female with past medical history remarkable for degenerative disc disease, chronic back pain status post lumbar back surgery, asthma who presents emergency Department complaining of new onset of left-sided back pain located over ribs after a fall 2 days ago. Patient states that she awkwardly twisted her back and fell down onto the cement 2 days ago. She does not recall if she hit her ribs at that time but does state that since that time she is having pain over the posterior left lower ribs. She denies any midline spinal tenderness palpation that is new. She states that she fell down and caught herself with her wrist but denies any pain or injury at the site. She denies any sensory deficits. She denies any chest pain. Denies any abdominal pain, nausea, vomiting. Patient otherwise has no acute complaints at this time. She is attempted to use Motrin at home for pain management with minimal improvement. She presents emergency department today over concern for possible injury to her ribs. She is no longer on a pain contract per patient's and the patient. - Related Data Previous Rx's Medication Instructions Recorded Ibuprofen [Motrin] 800 mg PO Q8H PRN #21 tab 02/13/21 Lidocaine 5% Patch [Lidoderm 5% 1 patch TOPICAL DAILY #7 patch 02/13/21 Patch] Methocarbamol [Robaxin-750] 1,500 mg PO Q8HR #42 tablet 02/13/21 Allergies Allergy/AdvReac Type Severity Reaction Status Date / Time amoxicillin Allergy Dyspnea Verified 02/13/21 17:15 Penicillins Allergy Unknown Verified 02/13/21 17:15 sulfamethoxazole Allergy Unknown Verified 02/13/21 17:15 [From Bactrim] Review of Systems ROS Statement: Those systems with pertinent positive or pertinent negative responses have been documented in the HPI. Review of Systems: CONST: Denies fever EYES: Denies blurry vision ENT: Denies nasal congestion C/V: Denies Chest pain RESP: Denies shortness of breath GI: Denies abdominal pain : Denies dysuria SKIN: Denies rash. MSK: Endorses left-sided posterior rib pain. NEURO: Denies headache ROS Other: All systems not noted in ROS Statement are negative. Past Medical History Past Medical History: Asthma Additional Past Medical History / Comment(s): DDD, chronic back pain History of Any Multi-Drug Resistant Organisms: None Reported Past Surgical History: Section, Hysterectomy Additional Past Surgical History / Comment(s): pain services procedures, back surgery 01/2019 Past Anesthesia/Blood Transfusion Reactions: No Reported Reaction Past Psychological History: Depression Smoking Status: Current every day smoker Past Alcohol Use History: None Reported, Abuse, Daily, Heavy Past Drug Use History: None Reported General Exam - General Exam Comments Initial Comments: General: Appears in mild distress secondary to back pain. HEAD: Normal with no signs of head trauma. EYES: PERRLA, EOMI, conjunctiva normal, no discharge. ENT: Hearing grossly intact, normal oropharynx. RESPIRATORY: Clear breath sounds bilaterally. No wheezes, rales, or rhonchi. C/V: Regular rate and rhythm. S1 and S2 auscultated, no edema, peripheral pulses 2+ and intact throughout ABD: Abd is soft, nontender, nondistended EXT: Normal range of motion, no obvious deformity. Patient's intact pulses in the right radial artery and no tenderness palpation of the right wrist, snuffbox, right hand. She has no midline tenderness to palpation of the cervical, thoracic, lumbar spines. Patient does have mild tenderness palpation of the intercostal spaces the lower left sided posterior ribs. No obvious deformities are palpated. Patient is intact breath sounds in bilateral lung tadeo. Pelvis is stable. SKIN: No rashes or lesions observed on exposed skin. NEURO: Alert and oriented 4. No focal sensory strength deficits. Limitations: no limitations Course Vital Signs 02/13/21 02/13/21 15:17 17:21 Temperature 98.9 F Pulse Rate 98 98 Respiratory 16 18 Rate Blood Pressure 124/77 124/69 O2 Sat by Pulse 98 98 Oximetry Medical Decision Making - Medical Decision Making Based on patient's presentation and physical exam, I'm concerned for possible bony triadic and due to patient's left posterior ribs, however it is more than likely a muscular strain. She is tender to palpation over the intercostal muscles. She has no midline tenderness palpation over the spine and I'm not concerned for acute fractures. She has no sensory strength deficits. She likely has a muscle strain. Over we will obtain a screening rib x-ray with AP chest. Patient will be administered by mouth [place], Robaxin as well as a lidocaine patch for analgesia. She was in agreement with this plan. I do not believe that laboratory studies are required at this time. Patient's imaging is negative for any acute process, fracture, injury. On reevaluation come patient states the pain is somewhat improved. I did inform her of the results of her negative imaging. I do believe it is safer to be discharged home with follow-up with her PCP. She was in agreement with this plan. I will provide the patient with a prescription for Robaxin, ibuprofen, taking patch. I instructed the patient to follow up with their PCP in the next 3 days. . I explained that the patient should return to the emergency department if they experience any worsening symptoms. Strict return precautions were discussed with the patient. The patient expressed understanding of these instructions. I answered all questions that the patient had. The patient was discharged home in fair condition with their prescriptions and follow up information. Disposition Clinical Impression: Musculoskeletal pain, Chronic back pain Disposition: HOME SELF-CARE Condition: Fair Instructions (If sedation given, give patient instructions): Acute Low Back Pain (ED) Prescriptions: Lidocaine 5% Patch [L[place]oderm 5% Patch] 1 patch TOPICAL DAILY #7 patch Ibuprofen [Motrin] 800 mg PO Q8H PRN #21 tab PRN Reason: Pain Methocarbamol [Robaxin-750] 1,500 mg PO Q8HR #42 tablet Is patient prescribed a controlled substance at d/c from ED?: No Referrals: Shaun Rodriguez MD [Primary Care Provider] - 1-2 days Sebastian Vidales MD [STAFF PHYSICIAN] - 1-2 days
--- NOTE | 2021-02-13 16:47 | XR ---
EXAMINATION TYPE: XR ribs bilat w pa chest xray DATE OF EXAM: 02/13/2021 CLINICAL HISTORY: Chest and bilateral rib pain after fall injury TECHNIQUE: Single frontal view of the chest is obtained. A frontal and oblique images of the bilatera l ribs. COMPARISON: Chest x-ray September 05, 2020 FINDINGS: There is no suspicious new focal air space opacity, pleural effusion, or pneumothorax seen . The cardiac silhouette size is stable and within normal limits. The osseous structures are intac t. Dedicated images of bilateral ribs show no acute displaced fractures. Overlying soft tissue is unrema rkable. Cholecystectomy clips are seen. There is partial visualization of surgical change in the lumb ar spine noted. IMPRESSION: 1. No acute cardiopulmonary process. 2. No acute displaced bilateral rib fractures.
[2021-02-13 17:23] VITALS: BP 124/69; RESP 18
== END 2021-02-13 17:21 | disposition home or self-care (01) ==
LOC: EC 15:14
DX: G89.29 Other chronic pain (principal); M54.6 Pain in thoracic spine; J45.909 Unspecified asthma, uncomplicated; F17.200 Nicotine dependence, unspecified, uncomplicated; Z88.0 Allergy status to penicillin; Z88.1 Allergy status to other antibiotic agents; Z88.2 Allergy status to sulfonamides
CPT/HCPCS: 71111; 99283

== ENCOUNTER 2021-04-26 15:25 | Emergency (ER) | payer OTHER ==
[2021-04-26 15:52] VITALS: BP 114/75; RESP 20; TEMP 99.3
[2021-04-26] MEDS ORDERED: predniSONE 50 MG TAB PO STA (17:26)
[2021-04-26] MEDS ORDERED: IPRATROPIUM-ALBUTEROL 3 ML NEB INHALATION STA (17:26)
--- NOTE | 2021-04-26 17:37 | ED ---
General Adult HPI - General Chief complaint: Upper Respiratory Infection Stated complaint: congestion Time Seen by Provider: 04/26/21 16:37 Source: patient, RN notes reviewed, old records reviewed Mode of arrival: ambulatory Limitations: no limitations - History of Present Illness Initial comments: I evaluated the patient when she was placed in a room. Patient is a 55-year-old female with past medical history remarkable for daily alcohol abuse, daily tobacco use, asthma/COPD who presents emergency Department complaining of cough and congestion for the last 2 days. She was prescribed an antibiotic by her PCP however she is ALLERGIC to penicillins and cannot take it. She endorses mild wheezing as well as a cough productive of thick, mucous for her. Denies sore throat. Endorses some mild rhinorrhea. Denies any sinus tenderness. Denies any chest pain, abdominal pain, nausea, vomiting. Denies any diarrhea. She was vaccinated for COVID-19. She has no other acute complaints at this time. She is seeking an antibiotic for possible bronchitis versus pneumonia. - Related Data Previous Rx's Medication Instructions Recorded Ibuprofen [Motrin] 800 mg PO Q8H PRN #21 tab 02/13/21 Lidocaine 5% Patch [Lidoderm 5% 1 patch TOPICAL DAILY #7 patch 02/13/21 Patch] Methocarbamol [Robaxin-750] 1,500 mg PO Q8HR #42 tablet 02/13/21 Albuterol Inhaler [Ventolin Hfa 1 puff INHALATION RT-TID #8 gm 04/26/21 Inhaler] Doxycycline Hyclate [Vibramycin] 100 mg PO BID 7 Days #14 cap 04/26/21 predniSONE [Deltasone] 40 mg PO DAILY 5 Days #10 tab 04/26/21 Allergies Allergy/AdvReac Type Severity Reaction Status Date / Time amoxicillin Allergy Dyspnea Verified 04/26/21 15:52 Penicillins Allergy Unknown Verified 04/26/21 15:52 sulfamethoxazole Allergy Unknown Verified 04/26/21 15:52 [From Bactrim] Review of Systems ROS Statement: Those systems with pertinent positive or pertinent negative responses have been documented in the HPI. Review of Systems: CONST: Denies fever EYES: Denies blurry vision ENT: Endorses nasal congestion C/V: Denies Chest pain RESP: Endorses cough GI: Denies abdominal pain : Denies dysuria SKIN: Denies rash. MSK: Denies joint pain. NEURO: Denies headache ROS Other: All systems not noted in ROS Statement are negative. Past Medical History Past Medical History: Asthma Additional Past Medical History / Comment(s): DDD, chronic back pain History of Any Multi-Drug Resistant Organisms: None Reported Past Surgical History: Section, Hysterectomy Additional Past Surgical History / Comment(s): pain services procedures, back surgery 01/2019 Past Anesthesia/Blood Transfusion Reactions: No Reported Reaction Past Psychological History: Depression Smoking Status: Current every day smoker Past Alcohol Use History: None Reported, Abuse, Daily, Heavy Past Drug Use History: None Reported General Exam - General Exam Comments Initial Comments: General: Appears in no acute distress. HEAD: Normal with no signs of head trauma. EYES: PERRLA, EOMI, conjunctiva normal, no discharge. ENT: Hearing grossly intact, normal oropharynx. Patient is active rhinorrhea. RESPIRATORY: Patient is mild end expiratory wheezing bilaterally and centrally. No obvious rhonchi appreciated. No increased work of breathing. C/V: Regular rate and rhythm. S1 and S2 auscultated, no edema, peripheral pulses 2+ and intact throughout ABD: Abd is soft, nontender, nondistended EXT: Normal range of motion, no obvious deformity SKIN: No rashes or lesions observed on exposed skin. NEURO: Alert and oriented 4. Limitations: no limitations Course Vital Signs 04/26/21 04/26/21 04/26/21 15:49 17:49 17:59 Temperature 99.3 F Pulse Rate 79 68 68 Respiratory 20 Rate Blood Pressure 114/75 O2 Sat by Pulse 98 Oximetry Medical Decision Making - Medical Decision Making Based on the patient's presentation and physical exam, I believe she is likely having an asthma exacerbation cannot rule out upper respiratory infection at this time. Differential includes pneumonia versus viral etiology. COVID-19 swab will be obtained in triage. I will add on chest x-ray. I do not believe that she requires any further laboratory studies or imaging at this time. She'll be symptomatically treated with prednisone as well as a DuoNeb breathing treatment while here in the department for mild asthma exacerbation. She was in agreement this plan. I counseled the patient on smoking cessation. COVID-19 swab is negative.Patient's chest x-ray shows no signs of pneumonia or acute cardiopulmonary process. On reevaluation, patient's wheezing is improved following 1 breathing treatment. Vital signs remain within normal limits and stable. I do believe it is safer to be discharged home at this time. She was in agreement with the plan. She'll be started on doxycycline and given first dose here. I will provide the patient with a prescription for doxycycline 100 mg twice a day for 7 days, albuterol inhaler, prednisone 40 mg daily for 5 days. I instructed the patient to follow up with their PCP in the next 3 days. I explained that the patient should return to the emergency department if they experience any worsening symptoms. Strict return precautions were discussed with the patient. The patient expressed understanding of these instructions. I answered all questions that the patient had. The patient was discharged home in fair condition with their prescriptions and follow up information. - Lab Data Lab Results 04/26/21 Range/Units 15:54 Coronavirus (PCR) Not Detected (Not Detectd) Disposition Clinical Impression: Bronchitis, Asthma exacerbation Disposition: HOME SELF-CARE Condition: Fair Instructions (If sedation given, give patient instructions): Acute Bronchitis (ED) Prescriptions: predniSONE [Deltasone] 40 mg PO DAILY 5 Days #10 tab Albuterol Inhaler [Ventolin Hfa Inhaler] 1 puff INHALATION RT-TID #8 gm Doxycycline Hyclate [Vibramycin] 100 mg PO BID 7 Days #14 cap Is patient prescribed a controlled substance at d/c from ED?: No Referrals: Shaun Rodriguez MD [Primary Care Provider] - 1-2 days
--- NOTE | 2021-04-26 17:43 | XR ---
EXAMINATION TYPE: XR chest 2V DATE OF EXAM: 04/26/2021 COMPARISON: 02/13/2021 HISTORY: Cough and congestion TECHNIQUE: Single view FINDINGS: Heart and mediastinum are normal. Lungs are clear. Diaphragm is normal. Bony thorax is inta ct. IMPRESSION: Normal chest. No change.
[2021-04-26] MEDS ORDERED: DOXYCYCLINE 100 MG CAP PO STA (17:44)
[2021-04-26 17:53] VITALS: PULSE 68
== END 2021-04-26 18:25 | disposition home or self-care (01) ==
LOC: EC 15:25
DX: J45.901 Unspecified asthma with (acute) exacerbation (principal); F17.200 Nicotine dependence, unspecified, uncomplicated; Z88.0 Allergy status to penicillin; Z88.1 Allergy status to other antibiotic agents; Z88.2 Allergy status to sulfonamides; Z79.51 Long term (current) use of inhaled steroids; Z79.1 Long term (current) use of non-steroidal anti-inflammatories (NSAID); Z79.899 Other long term (current) drug therapy
CPT/HCPCS: 99283 ×2; 94640; 87635; 71046; J7512

== ENCOUNTER 2021-10-30 10:28 | Emergency (ER) | payer OTHER ==
[2021-10-30 10:45] VITALS: BP 128/67; PULSE 73; RESP 18; TEMP 99
[2021-10-30] MEDS ORDERED: ACET/COD 300 MG/30 MG STARTER PACK 6 TAB BTL PO STA (11:49)
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
== END 2021-10-30 12:05 | disposition home or self-care (01) ==
LOC: EC 10:28
DX: M54.59 Other low back pain (principal); G89.29 Other chronic pain; J45.909 Unspecified asthma, uncomplicated; F32.A Depression, unspecified; F17.200 Nicotine dependence, unspecified, uncomplicated; Z88.0 Allergy status to penicillin; Z88.2 Allergy status to sulfonamides; Z90.710 Acquired absence of both cervix and uterus
CPT/HCPCS: 99283

== ENCOUNTER 2022-02-23 16:41 | Emergency (ER) | payer OTHER ==
[2022-02-23 16:45] VITALS: BP 145/76; PULSE 86; RESP 20; TEMP 98.4
[2022-02-23] MEDS ORDERED: ORPHENADRINE 30 MG/ML 2 ML VIAL IM STA (17:24)
[2022-02-23] MEDS ORDERED: DEXAMETHASONE SOD PHOSPHATE 10 MG/ML 1 ML VIAL IM STA (17:24)
[2022-02-23] MEDS ORDERED: KETOROLAC 15 MG/ML 1 ML VIAL IM STA (17:24)
--- NOTE | 2022-02-23 17:44 | ED ---
Back Pain HPI - General Chief Complaint: Back Pain/Injury Stated Complaint: back pain Time Seen by Provider: 02/23/22 17:18 Source: patient Limitations: no limitations - History of Present Illness Initial Comments: Patient is a 56-year-old female presenting with chief complaint Of back pain. Patient had surgery to the lumbar spine about 2 years ago, she states that as of recent her pain is been returning. She denies any injury or trauma. No saddle paresthesia or loss of bowel or bladder control. Patient has been taking [place] was at home which has not been alleviating her pain. She denies any radiation of pain down the legs or across the abdomen. No dysuria or hematuria. No fever or chills. Patient has full range of motion of the extremities. - Related Data Previous Rx's Medication Instructions Recorded Ibuprofen [Motrin] 800 mg PO Q8H PRN #21 tab 02/13/21 Lidocaine 5% Patch [Lidoderm 5% 1 patch TOPICAL DAILY #7 patch 02/13/21 Patch] methocarbamoL [Robaxin-750] 1,500 mg PO Q8HR #42 tablet 02/13/21 Albuterol Inhaler [Ventolin Hfa 1 puff INHALATION RT-TID #8 gm 04/26/21 Inhaler] Doxycycline Hyclate [Vibramycin] 100 mg PO BID 7 Days #14 cap 04/26/21 predniSONE [Deltasone] 40 mg PO DAILY 5 Days #10 tab 04/26/21 Cyclobenzaprine [Flexeril] 10 mg PO TID PRN #20 tab 02/23/22 Allergies Allergy/AdvReac Type Severity Reaction Status Date / Time amoxicillin Allergy Dyspnea Verified 02/23/22 16:45 Penicillins Allergy Unknown Verified 02/23/22 16:45 sulfamethoxazole Allergy Unknown Verified 02/23/22 16:45 [From Bactrim] Review of Systems ROS Statement: Those systems with pertinent positive or pertinent negative responses have been documented in the HPI. ROS Other: All systems not noted in ROS Statement are negative. Past Medical History Past Medical History: Asthma Additional Past Medical History / Comment(s): DDD, chronic back pain History of Any Multi-Drug Resistant Organisms: None Reported Past Surgical History: Section, Hysterectomy Additional Past Surgical History / Comment(s): pain services procedures, back surgery 01/2019 Past Anesthesia/Blood Transfusion Reactions: No Reported Reaction Past Psychological History: Depression Smoking Status: Current every day smoker Past Alcohol Use History: Abuse, Daily, Heavy Past Drug Use History: None Reported General Exam Limitations: no limitations General appearance: alert, in no apparent distress Head exam: Present: atraumatic, normocephalic, normal inspection Eye exam: Present: normal appearance, EOMI. Absent: scleral icterus, periorbital swelling Neck exam: Present: normal inspection Extremities exam: Present: full ROM Back exam: Present: normal inspection, full ROM, paraspinal tenderness. Absent: CVA tenderness (R), CVA tenderness (L), vertebral tenderness Neurological exam: Present: alert, oriented X3, CN II-XII intact Psychiatric exam: Present: normal affect, normal mood Skin exam: Present: warm, dry, intact, normal color. Absent: rash Course Vital Signs 02/23/22 16:43 Temperature 98.4 F Pulse Rate 86 Respiratory 20 Rate Blood Pressure 145/76 O2 Sat by Pulse 100 Oximetry Medical Decision Making - Medical Decision Making Patient is a 56-year-old female presenting with chief complaint of back pain. History of surgery. No red flag symptoms. No injury or trauma. On examination there is paraspinal muscle tenderness. Patient has full range of motion. Patient is given pain medication here in the ER and shows improvement. Discharged with Ultram starter pack and instructions to follow up with her surgeon. Report back to ER if any new or worsening symptoms. Discussed return parameters answered all questions. Patient conveyed verbal understanding and agreed to the plan. I discussed this case with my attending Dr. Godwin. Disposition Clinical Impression: Mechanical back pain Disposition: HOME SELF-CARE Condition: Good Instructions (If sedation given, give patient instructions): Low Back Strain (ED), Acute Low Back Pain (ED) Additional Instructions: Follow-up with PCP in her orthopedist in one to 2 days. Report back to ER with any new or worsening symptoms. Prescriptions: Cyclobenzaprine [Flexeril] 10 mg PO TID PRN #20 tab PRN Reason: Spasms Is patient prescribed a controlled substance at d/c from ED?: No Referrals: Shaun Rodriguez MD [Primary Care Provider] - 1-2 days Time of Disposition: 18:41
[2022-02-23] MEDS ORDERED: traMADol 50 MG STARTER PACK 3 TAB BTL PO STA (17:49)
== END 2022-02-23 18:33 | disposition home or self-care (01) ==
LOC: EC 16:41
DX: M54.50 Low back pain, unspecified (principal); J45.909 Unspecified asthma, uncomplicated; F17.200 Nicotine dependence, unspecified, uncomplicated; Z88.0 Allergy status to penicillin; Z88.2 Allergy status to sulfonamides
CPT/HCPCS: 99283; 96372; J1100; J2360; J1885

== ENCOUNTER 2022-04-23 23:18 | Emergency (ER) | payer OTHER ==
[2022-04-24] MEDS ORDERED: CEPHALEXIN 500 MG CAP ONE (00:13)
[2022-04-24] MEDS ORDERED: Acetaminophen-Codeine 300-30mg TAB ONE (00:13)
[2022-04-24] MEDS ORDERED: IBUPROFEN 600 MG TAB PO ONE (00:13)
[2022-04-24] MEDS ORDERED: DEXAMETHASONE SOD PHOSPHATE 10 MG/ML 1 ML VIAL ONE (00:13)
== END 2022-04-24 | disposition home or self-care (01) ==
LOC: EC 23:18
DX: L03.113 Cellulitis of right upper limb (principal)
CPT/HCPCS: 99283; J1100

== ENCOUNTER 2023-03-27 09:31 | Emergency (ER) | payer OTHER ==
[2023-03-27 09:47] VITALS: RESP 18; TEMP 98.3
--- NOTE | 2023-03-27 10:24 | ED ---
Back Pain HPI - General Chief Complaint: Back Pain/Injury Stated Complaint: lower back pain Time Seen by Provider: 03/27/23 10:11 Source: patient, family, RN notes reviewed, old records reviewed Limitations: no limitations - History of Present Illness Initial Comments: 57-year-old female presents to the emergency room with family complaining of low back pain for 3 weeks. States started after swimming in cold water. Family states cold water can cause movement of the metal screws in her back and wants xr. She states that she does have a history of degenerative disc disease and has a "cage" in her lower back, surgery done at [facility] 5 years ago. She does see Dr. Bar as her pain doctor and did see him regarding the pain but no x-rays were ordered. Patient states that she is concerned for misalignment of screws in her back and wants an x-ray. She denies any falls. No fevers. No bowel or bladder incontinence. MD Complaint: back pain -: week(s) (3) Similar Symptoms Previously: Yes Severity scale (1-10): 8 Consistency: constant Context: other (swimming) Treatments Prior to Arrival: prescription analgesics - Related Data Previous Rx's Medication Instructions Recorded Ibuprofen [Motrin] 800 mg PO Q8H PRN #21 tab 02/13/21 Lidocaine 5% Patch [Lidoderm 5% 1 patch TOPICAL DAILY #7 patch 02/13/21 Patch] methocarbamoL [Robaxin-750] 1,500 mg PO Q8HR #42 tablet 02/13/21 Albuterol Inhaler [Ventolin Hfa 1 puff INHALATION RT-TID #8 gm 04/26/21 Inhaler] Doxycycline Hyclate [Vibramycin] 100 mg PO BID 7 Days #14 cap 04/26/21 predniSONE [Deltasone] 40 mg PO DAILY 5 Days #10 tab 04/26/21 Cyclobenzaprine [Flexeril] 10 mg PO TID PRN #20 tab 02/23/22 Lidocaine 5% Patch [Lidoderm] 1 patch TOPICAL DAILY #10 patch 03/27/23 Allergies Allergy/AdvReac Type Severity Reaction Status Date / Time amoxicillin Allergy Dyspnea Verified 03/27/23 09:46 Penicillins Allergy Unknown Verified 03/27/23 09:46 sulfamethoxazole Allergy Unknown Verified 03/27/23 09:46 [From Bactrim] Review of Systems ROS Statement: Those systems with pertinent positive or pertinent negative responses have been documented in the HPI. ROS Other: All systems not noted in ROS Statement are negative. Past Medical History Past Medical History: Asthma Additional Past Medical History / Comment(s): DDD, chronic back pain History of Any Multi-Drug Resistant Organisms: None Reported Past Surgical History: Section, Hysterectomy Additional Past Surgical History / Comment(s): pain services procedures, back surgery 01/2019 Past Anesthesia/Blood Transfusion Reactions: No Reported Reaction Past Psychological History: Depression Smoking Status: Current every day smoker Past Alcohol Use History: Abuse, Daily, Heavy Past Drug Use History: None Reported General Exam Limitations: no limitations General appearance: alert, in no apparent distress Head exam: Present: atraumatic Eye exam: Present: normal appearance. Absent: scleral icterus, conjunctival injection Neck exam: Present: full ROM. Absent: meningismus Respiratory exam: Absent: respiratory distress, accessory muscle use Back exam: Present: tenderness (LS spine , two verticle surgical scars noted pain located between them), paraspinal tenderness, vertebral tenderness. Absent: full ROM, CVA tenderness (R), CVA tenderness (L), rash noted Neurological exam: Present: alert, oriented X3 Psychiatric exam: Present: normal affect, normal mood Skin exam: Present: warm, dry, normal color. Absent: cyanosis, diaphoretic, petechiae, pallor Course Vital Signs 03/27/23 03/27/23 09:43 11:00 Temperature 98.3 F Pulse Rate 62 68 Respiratory 18 18 Rate Blood Pressure 173/74 168/72 O2 Sat by Pulse 100 97 Oximetry Medical Decision Making - Medical Decision Making Was pt. sent in by a medical professional or institution (, PA, CONSIGNEE, urgent care, hospital, or fci...) When possible be specific @ -No Did you speak to anyone other than the patient for history (EMS, parent, family, police, friend...)? What history was obtained from this source @ -No Did you review nursing and triage notes (agree or disagree)? Why? @ -I reviewed and agree with nursing and triage notes Were old charts reviewed (outside hosp., previous admission, EMS record, old EKG, old radiological studies, urgent care reports/EKG's, fci records)? Report findings @ -No old charts were reviewed Differential Diagnosis (chest pain, altered mental status, abdominal pain women, abdominal pain men, vaginal bleeding, weakness, fever, dyspnea, syncope, headache, dizziness, GI bleed, back pain, seizure, CVA, palpatations, mental health, musculoskeletal)? @ -Differential Back Pain: Strain, zoster, cauda equina syndrome, epidural abscess, vertebral osteomyelitis, discitis, fracture, subluxation, disc herniation, DJD, spinal stenosis, dissection, AAA, pancreatitis, peptic ulcer disease, pyelonephritis, kidney stone, this is not meant to be an all-inclusive list. EKG interpreted by me (3pts min.). @ -n/a X-rays interpreted by me (1pt min.). @ -yes X-ray of the lumbosacral spine interpreted by me shows no malalignment of hardware. No acute fractures. CT interpreted by me (1pt min.). @ -None done U/S interpreted by me (1pt. min.). @ -None done What testing was considered but not performed or refused? (CT, X-rays, U/S, labs)? Why? @ -None What meds were considered but not given or refused? Why? @ -None Did you discuss the management of the patient with other professionals (professionals i.e. , PA, CONSIGNEE, lab, RT, psych nurse, social sciences research scientist, registered dental assistant, teacher, forward air controller/air officer, case mgr)? Give summary @ -No Was smoking cessation discussed for >3mins.? @ -No Was critical care preformed (if so, how long)? @ -No Were there social determinants of health that impacted care today? How? (Homelessness, low income, unemployed, alcoholism, drug addiction, transportation, low edu. Level, literacy, decrease access to med. care, longterm, rehab)? @ -No Was there de-escalation of care discussed even if they declined (Discuss DNR or withdrawal of care, Hospice)? DNR status @ -No What co-morbidities impacted this encounter? (DM, HTN, Smoking, COPD, CAD, Cancer, CVA, ARF, Chemo, Hep., AIDS, mental health diagnosis, sleep apnea, morbid obesity)? @ -Patient has history of asthma, degenerative disc disease, chronic back pain, hysterectomy, depression, alcohol abuse and daily smoker Was patient admitted / discharged? Hospital course, mention meds given and route, prescriptions, significant lab abnormalities, going to OR and other pertinent info. @ Discharged 57-year-old female presents to the emergency room with family complaining of low back pain for 3 weeks. States started after swimming in cold water. Family states cold water can cause movement of the metal screws in her back and wants xr. She states that she does have a history of degenerative disc disease and has a "cage" in her lower back, surgery done at [facility] 5 years ago. She does see Dr. Bar as her pain doctor and did see him regarding the pain but no x-rays were ordered. Patient states that she is concerned for misalignment of screws in her back and wants an x-ray. She denies any falls. No fevers. No bowel or bladder incontinence. Patient denies any trauma, no bowel or bladder incontinence, no saddle anesthesia, no fevers, no history of cancer, denies IV drug abuse. On exam there is no welling, erythema or bruising. No rashes. Patient has full range of motion of bilateral lower extremities. She is able to ambulate. Tenderness to palpation of the lumbar sacral spine between previous surgical incisions. Radiologist interpretation no acute fracture dislocation is seen in the lumbar spine. Postop changes of the lumbar fusion L4-L5 and S1 satisfactory alignment. Degenerative disc space narrowing L3 4. Lidoderm patch was applied. Patient will be directed to follow up with Dr. Bar for continuation of care. Directed to continue her previously prescribed medications. Lidoderm patches were prescribed. Return with any new or concerning symptoms. Discharged home with family. Case discussed with Dr. Hammer. Undiagnosed new problem with uncertain prognosis? @ -No Drug Therapy requiring intensive monitoring for toxicity (Heparin, Nitro, Insulin, Cardizem)? @ -No Were any procedures done? @ -No Diagnosis/symptom? @ -Chronic low back pain Acute, or Chronic, or Acute on Chronic? @ -Chronic Uncomplicated (without systemic symptoms) or Complicated (systemic symptoms)? @ -Uncomplicated Side effects of treatment? @ -No Exacerbation, Progression, or Severe Exacerbation? @ -No Poses a threat to life or bodily function? How? (Chest pain, [place], [place], pneumonia, PE, COPD, DKA, ARF, appy, cholecystitis, CVA, Diverticulitis, Homicidal, Suicidal, threat to staff... and all critical care pts) @ -No Disposition Clinical Impression: Chronic low back pain Disposition: HOME SELF-CARE Condition: Good Instructions (If sedation given, give patient instructions): Chronic Back Pain (DC), Lower Back Exercises (ED) Additional Instructions: Follow-up with your primary care doctor and Dr. Bar for continuation of care. Continue your previously prescribed pain medications. Prescriptions: Lidocaine 5% Patch [Lidoderm] 1 patch TOPICAL DAILY #10 patch Is patient prescribed a controlled substance at d/c from ED?: No Referrals: Shaun Rodriguez MD [Primary Care Provider] - 1-2 days Antonio Bar MD [STAFF PHYSICIAN] - 1-2 days Time of Disposition: 10:46
[2023-03-27] MEDS ORDERED: LIDOCAINE 5% PATCH TOPICAL SCH (10:30)
--- NOTE | 2023-03-27 10:42 | XR ---
EXAMINATION TYPE: XR lumbar spine 2 or 3V DATE OF EXAM: 03/27/2023 CLINICAL HISTORY: pain TECHNIQUE: Three views of the lumbar spine are submitted. COMPARISON: 08/05/2020 FINDINGS: There are 5 lumbar type vertebral bodies identified. Postoperative changes of the lumbar fusion L4-L 5 S1. . The lumbar spine shows satisfactory alignment without evidence of acute fracture or dislocati on. Vertebral body heights are within normal limits. Severe degenerative disc space narrowing L3-4. Ventral spondylosis. The overlying soft tissue appears unremarkable. IMPRESSION: No acute fracture or dislocation is seen in the lumbar spine. ICD 10 NO FRACTURE, INITIAL EVALUATION
[2023-03-27 11:02] VITALS: BP 168/72; PULSE 68
== END 2023-03-27 19:00 | disposition home or self-care (01) ==
LOC: EC 09:31
DX: G89.29 Other chronic pain (principal); M54.50 Low back pain, unspecified; J45.909 Unspecified asthma, uncomplicated; F17.200 Nicotine dependence, unspecified, uncomplicated; Z86.59 Personal history of other mental and behavioral disorders; Z88.0 Allergy status to penicillin; Z88.2 Allergy status to sulfonamides
CPT/HCPCS: 72100; 99283

== ENCOUNTER 2023-05-04 12:15 | Emergency (ER) | payer OTHER ==
[2023-05-04 13:19] VITALS: RESP 18
[2023-05-04] MEDS ORDERED: DEXAMETHASONE SOD PHOSPHATE 10 MG/ML 1 ML VIAL IM STA (13:32)
[2023-05-04] MEDS ORDERED: ORPHENADRINE 30 MG/ML 2 ML VIAL IM STA (13:32)
[2023-05-04] MEDS ORDERED: KETOROLAC 15 MG/ML 1 ML VIAL IM STA (13:32)
[2023-05-04] MEDS ORDERED: HYDROcodone/APAP 7.5-325MG 1 EACH TAB PO ONE (13:32)
--- NOTE | 2023-05-04 13:42 | ED ---
Neck Injury/Pain HPI - General Chief Complaint: Neck Pain/Injury Stated Complaint: middle neck pain Time Seen by Provider: 05/04/23 13:17 Source: patient, RN notes reviewed Mode of arrival: ambulatory Limitations: no limitations - History of Present Illness Initial Comments: This is a 57-year-old female who presents to the emergency department for neck p ain. Reports a history of degenerative disc disease in the cervical spine diagnosed 5 years ago. Denies having any surgery on this. States that she did have multiple MRIs and at one point a bone was out of place. This did seem to reposition itself over time. She has had ongoing problems with her neck, however over the last 3 days the pain has gotten particularly more severe. Denies any injuries. She is not taking anything to manage her symptoms. She does have an appointment with her neurosurgeon on 05/18/23, and the family is concerned that they do not have any updated imaging to show for this. MD Complaint: neck pain - Related Data Previous Rx's Medication Instructions Recorded RX: Ibuprofen [Motrin] 800 mg PO Q8H PRN #21 tab 02/13/21 RX: Lidocaine 5% Patch [Lidoderm 1 patch TOPICAL DAILY #7 patch 02/13/21 5% Patch] methocarbamoL [Robaxin-750] 1,500 mg PO Q8HR #42 tablet 02/13/21 RX: Albuterol Inhaler [Ventolin 1 puff INHALATION RT-TID #8 gm 04/26/21 Hfa Inhaler] RX: Doxycycline Hyclate 100 mg PO BID 7 Days #14 cap 04/26/21 [Vibramycin] RX: predniSONE [Deltasone] 40 mg PO DAILY 5 Days #10 tab 04/26/21 RX: Cyclobenzaprine [Flexeril] 10 mg PO TID PRN #20 tab 02/23/22 Lidocaine 5% Patch [Lidoderm] 1 patch TOPICAL DAILY #10 patch 03/27/23 RX: predniSONE 50 mg PO DAILY 5 Days #5 tab 05/04/23 methocarbamoL [Robaxin-750] 1,500 mg PO TID PRN #30 tab 05/04/23 Allergies Allergy/AdvReac Type Severity Reaction Status Date / Time amoxicillin Allergy Dyspnea Verified 05/04/23 13:11 Penicillins Allergy Unknown Verified 05/04/23 13:11 sulfamethoxazole Allergy Unknown Verified 05/04/23 13:11 [From Bactrim] Review of Systems ROS Statement: Those systems with pertinent positive or pertinent negative responses have been documented in the HPI. ROS Other: All systems not noted in ROS Statement are negative. Past Medical History Past Medical History: Asthma Additional Past Medical History / Comment(s): DDD, chronic back pain History of Any Multi-Drug Resistant Organisms: None Reported Past Surgical History: Section, Hysterectomy Additional Past Surgical History / Comment(s): pain services procedures, back surgery 01/2019 Past Anesthesia/Blood Transfusion Reactions: No Reported Reaction Past Psychological History: Depression Smoking Status: Current every day smoker Past Alcohol Use History: None Reported, Abuse, Daily Past Drug Use History: None Reported General Exam Limitations: no limitations General appearance: alert, in no apparent distress Head exam: Present: atraumatic, normocephalic, normal inspection Neck exam: Present: tenderness (posterior cervical spine) Respiratory exam: Present: normal lung sounds bilaterally. Absent: respiratory distress, wheezes, rales, rhonchi, stridor Cardiovascular Exam: Present: regular rate, normal rhythm, normal heart sounds. Absent: systolic murmur, diastolic murmur, rubs, gallop, clicks Neurological exam: Present: alert, oriented X3, CN II-XII intact Psychiatric exam: Present: normal affect, normal mood Skin exam: Present: warm, dry, intact, normal color. Absent: rash Course Vital Signs 05/04/23 13:08 Temperature 98.7 F Pulse Rate 73 Respiratory 18 Rate Blood Pressure 129/85 O2 Sat by Pulse 98 Oximetry Medical Decision Making - Medical Decision Making This is a 57-year-old female who presents to the emergency department for neck pain. Was pt. sent in by a medical professional or institution? @ -No Did you speak to anyone other than the patient for history? @ -No Did you review nursing and triage notes? @ -I disagree with the patient sustaining an injury 5 years ago. Reports a history of degenerative disc disease as opposed to an injury in particular. Were old charts reviewed? @ -No Differential Diagnosis? @ -Differential Neck Pain: Fracture, dislocation, contusion, strain, DDD, disc herniation, this is not meant to be an all-inclusive list. EKG interpreted by me (3pts min.)? @ -Not obtained X-rays interpreted by me (1pt min.)? @ -X-ray of the cervical spine obtained. My interpretation identifies no acute fractures. CT interpreted by me (1pt min.)? @ -Not obtained U/S interpreted by me (1pt. min.)? @ -Not obtained What testing was considered but not performed? (CT, X-rays, U/S, labs)? Why? @ -None What meds were considered but not given? Why? @ -None Did you discuss the management of the patient with other professionals? @ -No Did you reconcile home meds? @ -No Was smoking cessation discussed for >3mins.? @ -No Was critical care preformed (if so, how long)? @ -No Were there social determinants of health that impacted care today? How? (Homeles sness, low income, unemployed, alcoholism, drug addiction, transportation, low edu. Level, literacy, decrease access to med. care, assisted, rehab)? @ -No Was there de-escalation of care discussed even if they declined? (Discuss DNR or withdrawal of care, Hospice)? @ -No What co-morbidities impacted this encounter? (DM, HTN, Smoking, COPD, CAD, Cancer, CVA, Hep., AIDS, mental health diagnosis, sleep apnea, morbid obesity)? @ -DDD Was patient admitted / discharged? @ -Discharged. X-ray of the cervical spine obtained revealing no acute process. Patient's symptoms were well controlled in the emergency department. She was given a prescription for a 5 day course of prednisone and Robaxin with dosing instructions reviewed. She will otherwise follow up with her neurosurgeon as scheduled on 05/18 for further evaluation. Undiagnosed new problem with uncertain prognosis? @ -None Drug Therapy requiring intensive monitoring for toxicity (Heparin, Nitro, Insulin, Cardizem)? @ -None Were any procedures done? @ -None Diagnosis/symptom? @ -Neck pain Acute, or Chronic, or Acute on Chronic? @ -Chronic Uncomplicated (without systemic symptoms) or Complicated (systemic symptoms)? @ -Uncomplicated Side effects of treatment? @ -None Exacerbation, Progression, or Severe Exacerbation] @ -Exacerbation Poses a threat to life or bodily function? @ -Yes, the pain is impacting her ability to function. Return precautions reviewed in depth, the patient is instructed to return to the emergency department with any new, worsening, or concerning symptoms. Patient verbalized understanding. This case was discussed in detail with the attending ED physician, Dr. Barrera. Presentation, findings, and treatment plan discussed in detail as well. - Radiology Data Radiology results: report reviewed, image reviewed Disposition Clinical Impression: Neck pain, DDD (degenerative disc disease), cervical Disposition: HOME SELF-CARE Instructions (If sedation given, give patient instructions): Neck Pain (ED) Additional Instructions: Return to the emergency department with any new, worsening, or concerning symptoms. Take the prednisone daily for 5 days. You may take this with Tylenol for additional management of your pain. You can take the Robaxin as 1-2 tablets up to 3-4 times daily. Be aware that the Robaxin may make you drowsy and you should avoid driving or operating machinery when taking this. Follow up with your primary care provider in 1-2 days. Prescriptions: RX: predniSONE 50 mg PO DAILY 5 Days #5 tab methocarbamoL [Robaxin-750] 1,500 mg PO TID PRN #30 tab PRN Reason: Pain Is patient prescribed a controlled substance at d/c from ED?: No Referrals: Shaun Rodriguez MD [Primary Care Provider] - 1-2 days
--- NOTE | 2023-05-04 14:23 | XR ---
EXAMINATION TYPE: XR cervical spine comp DATE OF EXAM: 05/04/2023 CLINICAL HISTORY: pain COMPARISON: NONE TECHNIQUE: Frontal, lateral, oblique, swimmers, and open mouth view of the cervical spine are obtaine d. FINDINGS: The cervical spine is visualized in its entirety from C1 thru the top of T1 level. It is s atisfactory in alignment without evidence of acute fracture or dislocation. The pre-vertebral soft t issue appears within normal limits. Reversal of the normal cervical lordosis. Moderate degenerative d isc space narrowing at C4-5 and C5-6 with ventral and dorsal spondylosis. The C1-C2 articulation is u nremarkable on the open mouth view. The oblique images are within normal limits. IMPRESSION: No acute fracture or dislocation is seen in the cervical spine.ICD 10 NO FRACTURE, INITI AL EVALUATION
[2023-05-04] MEDS ORDERED: ACET/COD 300 MG/30 MG STARTER PACK 6 TAB BTL PO STA (14:55)
[2023-05-04 15:21] VITALS: BP 136/82; PULSE 72; TEMP 98.1
== END 2023-05-04 15:15 | disposition home or self-care (01) ==
LOC: EC 12:15
DX: M50.30 Other cervical disc degeneration, unspecified cervical region (principal); J45.909 Unspecified asthma, uncomplicated; F17.200 Nicotine dependence, unspecified, uncomplicated; Z88.0 Allergy status to penicillin; Z88.2 Allergy status to sulfonamides; Z86.59 Personal history of other mental and behavioral disorders
CPT/HCPCS: 72050; 99284; 96372 ×3; J1100; J2360; J1885

== ENCOUNTER 2023-05-22 18:02 | Emergency (ER) | payer OTHER ==
[2023-05-22 18:19] VITALS: RESP 16; TEMP 98.4
[2023-05-22] MEDS ORDERED: HYDROmorphone 0.5 MG/0.5 ML SYRINGE IM STA (18:40)
--- NOTE | 2023-05-22 18:44 | ED ---
General Adult HPI - General Chief complaint: Back Pain/Injury Stated complaint: back pain Time Seen by Provider: 05/22/23 18:19 Source: patient, RN notes reviewed Mode of arrival: ambulatory Limitations: no limitations - History of Present Illness Initial comments: 57-year-old female with past medical history significant for chronic back pain presents the emergency department the chief complaint of acute low back pain. Patient reports that she has been unable to follow up with her spinal surgeon. She is recently discharged by her pain management doctor. Patient describes her pain is chronic in nature. She denies any new trauma or injury. She denies any events like symptoms such as fever, saddle paresthesia, loss of bowel or bladder function. - Related Data Previous Rx's Medication Instructions Recorded Ibuprofen [Motrin] 800 mg PO Q8H PRN #21 tab 02/13/21 Lidocaine 5% Patch [Lidoderm 5% 1 patch TOPICAL DAILY #7 patch 02/13/21 Patch] methocarbamoL [Robaxin-750] 1,500 mg PO Q8HR #42 tablet 02/13/21 Albuterol Inhaler [Ventolin Hfa 1 puff INHALATION RT-TID #8 gm 04/26/21 Inhaler] Doxycycline Hyclate [Vibramycin] 100 mg PO BID 7 Days #14 cap 04/26/21 predniSONE [Deltasone] 40 mg PO DAILY 5 Days #10 tab 04/26/21 Cyclobenzaprine [Flexeril] 10 mg PO TID PRN #20 tab 02/23/22 Lidocaine 5% Patch [Lidoderm] 1 patch TOPICAL DAILY #10 patch 03/27/23 methocarbamoL [Robaxin-750] 1,500 mg PO TID PRN #30 tab 05/04/23 predniSONE 50 mg PO DAILY 5 Days #5 tab 05/04/23 HYDROcodone/APAP 7.5-325MG [[place] 1 tab PO Q6HR PRN 3 Days #12 tab 05/22/23 7.5-325] Allergies Allergy/AdvReac Type Severity Reaction Status Date / Time amoxicillin Allergy Dyspnea Verified 05/22/23 18:10 Penicillins Allergy Unknown Verified 05/22/23 18:10 sulfamethoxazole Allergy Unknown Verified 05/22/23 18:10 [From Bactrim] Review of Systems ROS Statement: Those systems with pertinent positive or pertinent negative responses have been documented in the HPI. ROS Other: All systems not noted in ROS Statement are negative. Past Medical History Past Medical History: Asthma Additional Past Medical History / Comment(s): DDD, chronic back pain History of Any Multi-Drug Resistant Organisms: None Reported Past Surgical History: Section, Hysterectomy Additional Past Surgical History / Comment(s): pain services procedures, back surgery 01/2019 Past Anesthesia/Blood Transfusion Reactions: No Reported Reaction Past Psychological History: Depression Smoking Status: Current every day smoker Past Alcohol Use History: None Reported, Abuse, Daily Past Drug Use History: None Reported General Exam - General Exam Comments Initial Comments: General: Alert, in no acute distress Head: atraumatic normocephalic. Eyes PERRL, EOMI intact, mucous membranes moist Respiratory: Lungs clear to auscultation bilaterally Cardiovascular: Heart rate regular rate and Back surgical scars appear well healed Abdominal: Soft without guarding or rebound Extremities: Normal inspection with full range of motion and normal capillary refill Neuroogic: alert and oriented 3, CN II-XII intact, able to ambulate with steady gait Skin: warm dry and intact with normal color Limitations: no limitations Course Vital Signs 05/22/23 05/22/23 18:10 19:23 Temperature 98.4 F Pulse Rate 83 71 Respiratory 16 16 Rate Blood Pressure 148/78 121/69 O2 Sat by Pulse 98 98 Oximetry Medical Decision Making - Medical Decision Making Was pt. sent in by a medical professional or institution (BRADLEY Low, TRACK REPAIR PERSON, urgent care, hospital, or care home...) When possible be specific @ -[No] Did you speak to anyone other than the patient for history (EMS, parent, family, police, friend...)? What history was obtained from this source @ - Did you review nursing and triage notes (agree or disagree)? Why? @ -[I reviewed and agree with nursing and triage notes] Were old charts reviewed (outside hosp., previous admission, EMS record, old EKG, old radiological studies, urgent care reports/EKG's, care home records)? Report findings @ -[No old charts were reviewed] Differential Diagnosis (chest pain, altered mental status, abdominal pain women, abdominal pain men, vaginal bleeding, weakness, fever, dyspnea, syncope, headache, dizziness, GI bleed, back pain, seizure, CVA, palpatations, mental health, musculoskeletal)? @ -[not applicable] EKG interpreted by me (3pts min.). @ -[As above] X-rays interpreted by me (1pt min.). @ -[None done] CT interpreted by me (1pt min.). @ -[None done] U/S interpreted by me (1pt. min.). @ -[None done] What testing was considered but not performed or refused? (CT, X-rays, U/S, labs)? Why? @ -X-rays were offered however patient declining. Patient denies any new injury. What meds were considered but not given or refused? Why? @ -[None] Did you discuss the management of the patient with other professionals (professionals i.e. , PA, TRACK REPAIR PERSON, lab, RT, psych nurse, psych social worker, lining machine tender, teacher, transit authority police officer, porter sample case)? Give summary @ - NO Was smoking cessation discussed for >3mins.? @ -[No] Was critical care preformed (if so, how long)? @ -[No] Were there social determinants of health that impacted care today? How? (Homelessness, low income, unemployed, alcoholism, drug addiction, transportation, low edu. Level, literacy, decrease access to med. care, half-way, rehab)? @ -[No] Was there de-escalation of care discussed even if they declined (Discuss DNR or withdrawal of care, Hospice)? DNR status @ -[No] What co-morbidities impacted this encounter? (DM, HTN, Smoking, COPD, CAD, Cancer, CVA, ARF, Chemo, Hep., AIDS, mental health diagnosis, sleep apnea, morbid obesity)? @ -[None] Was patient admitted / discharged? Hospital course, mention meds given and route, prescriptions, significant lab abnormalities, going to OR and other pertinent info. @ Discharged. This is a 57-year-old female who presents to the emergency department with back pain. Patient has a history and physical exam performed. No focal neuro deficits (. Patient able to move all extremities freely. Patient was offered imaging however she declined. Patient agreeable with the plan for pain management and discharge home. With her spine surgeon. Return precautions discussed at length. Case discussed with Dr. Polo Jerry who agrees with plan of care Undiagnosed new problem with uncertain prognosis? @ -[No] Drug Therapy requiring intensive monitoring for toxicity (Heparin, Nitro, Insulin, Cardizem)? @ -[No] Were any procedures done? @ -[No] Diagnosis/symptom? @ -Back Pain Acute, or Chronic, or Acute on Chronic? @ -Acute on Chronic Uncomplicated (without systemic symptoms) or Complicated (systemic symptoms)? @ -Uncomplicated Side effects of treatment? @ -[No] Exacerbation, Progression, or Severe Exacerbation? @ -[No] Poses a threat to life or bodily function? How? (Chest pain, [place], [place], pneumonia, PE, COPD, DKA, ARF, appy, cholecystitis, CVA, Diverticulitis, Homicidal, Suicidal, threat to staff... and all critical care pts) @ -Low likelihood Disposition Clinical Impression: Mechanical back pain Disposition: HOME SELF-CARE Condition: Stable Instructions (If sedation given, give patient instructions): Acute Low Back Pain (ED) Additional Instructions: Please monitor symptoms closely Please return to the nearest emergency department symptoms worsen or persist Prescriptions: HYDROcodone/APAP 7.5-325MG [[place] 7.5-325] 1 tab PO Q6HR PRN 3 Days #12 tab PRN Reason: Pain Is patient prescribed a controlled substance at d/c from ED?: No Referrals: Shaun Rodriguez MD [Primary Care Provider] - 1-2 days Time of Disposition: 18:40
[2023-05-22 19:44] VITALS: BP 121/69; PULSE 71
== END 2023-05-22 19:24 | disposition home or self-care (01) ==
LOC: EC 18:02
DX: M54.50 Low back pain, unspecified (principal); J45.909 Unspecified asthma, uncomplicated; F32.A Depression, unspecified; F17.200 Nicotine dependence, unspecified, uncomplicated; Z88.0 Allergy status to penicillin; Z88.2 Allergy status to sulfonamides; Z79.899 Other long term (current) drug therapy
CPT/HCPCS: 99283; 96372; J1170

== ENCOUNTER 2023-05-30 07:57 | Emergency (ER) | payer OTHER ==
[2023-05-30 08:21] VITALS: BP 135/87; PULSE 84; RESP 16; TEMP 98.5
[2023-05-30] MEDS ORDERED: CEPHALEXIN 500 MG CAP PO STA (08:50)
--- NOTE | 2023-05-30 08:57 | ED ---
General Adult HPI - General Chief complaint: Extremity Injury, Lower Stated complaint: left toe pain Time Seen by Provider: 05/30/23 08:07 Source: patient, RN notes reviewed Mode of arrival: ambulatory Limitations: no limitations - History of Present Illness Initial comments: 57-year-old female with no significant past medical history presents the emergency department with a chief complaint of right toe patient reports that 4 days ago she stubbed her toe on the tile. She reports that her dog stepped on her foot. She reports worsening pain, purulent discharge from her right toe. She denies any known fevers or chills. She denies any self excision and drainage - Related Data Previous Rx's Medication Instructions Recorded Ibuprofen [Motrin] 800 mg PO Q8H PRN #21 tab 02/13/21 Lidocaine 5% Patch [Lidoderm 5% 1 patch TOPICAL DAILY #7 patch 02/13/21 Patch] methocarbamoL [Robaxin-750] 1,500 mg PO Q8HR #42 tablet 02/13/21 Albuterol Inhaler [Ventolin Hfa 1 puff INHALATION RT-TID #8 gm 04/26/21 Inhaler] Doxycycline Hyclate [Vibramycin] 100 mg PO BID 7 Days #14 cap 04/26/21 predniSONE [Deltasone] 40 mg PO DAILY 5 Days #10 tab 04/26/21 Cyclobenzaprine [Flexeril] 10 mg PO TID PRN #20 tab 02/23/22 Lidocaine 5% Patch [Lidoderm] 1 patch TOPICAL DAILY #10 patch 03/27/23 methocarbamoL [Robaxin-750] 1,500 mg PO TID PRN #30 tab 05/04/23 predniSONE 50 mg PO DAILY 5 Days #5 tab 05/04/23 HYDROcodone/APAP 7.5-325MG [[place] 1 tab PO Q6HR PRN 3 Days #12 tab 05/22/23 7.5-325] Cephalexin [Keflex] 500 mg PO Q6HR #40 cap 05/30/23 Allergies Allergy/AdvReac Type Severity Reaction Status Date / Time amoxicillin Allergy Dyspnea Verified 05/30/23 08:01 Penicillins Allergy Unknown Verified 05/30/23 08:01 sulfamethoxazole Allergy Unknown Verified 05/30/23 08:01 [From Bactrim] Review of Systems ROS Statement: Those systems with pertinent positive or pertinent negative responses have been documented in the HPI. ROS Other: All systems not noted in ROS Statement are negative. Past Medical History Past Medical History: Asthma Additional Past Medical History / Comment(s): DDD, chronic back pain History of Any Multi-Drug Resistant Organisms: None Reported Past Surgical History: Section, Hysterectomy Additional Past Surgical History / Comment(s): pain services procedures, back surgery 01/2019 Past Anesthesia/Blood Transfusion Reactions: No Reported Reaction Past Psychological History: Depression Smoking Status: Current every day smoker Past Alcohol Use History: None Reported, Abuse, Daily Past Drug Use History: None Reported General Exam - General Exam Comments Initial Comments: General: Alert, in no acute distress Head: atraumatic normocephalic. Eyes PERRL, EOMI intact, mucous membranes moist Respiratory: Lungs clear to auscultation bilaterally Cardiovascular: Regular rate regular rate and rhythm Abdominal: Soft without guarding or rebound Extremities: Normal inspection with full range of motion and normal capillary refill, right great toe with paronychia Neuroogic: alert and oriented 3, CN II-XII intact, able to ambulate with steady gait Skin: warm dry and intact with normal color Limitations: no limitations Course Vital Signs 05/30/23 07:59 Temperature 98.5 F Pulse Rate 84 Respiratory 16 Rate Blood Pressure 135/87 O2 Sat by Pulse 99 Oximetry Medical Decision Making - Medical Decision Making Was pt. sent in by a medical professional or institution (BRADLEY Low, MECHANICAL ENGINEERING DRAFTSPERSON, urgent care, hospital, or long term...) When possible be specific @ -[No] Did you speak to anyone other than the patient for history (EMS, parent, family, police, friend...)? What history was obtained from this source @ -[No] Did you review nursing and triage notes (agree or disagree)? Why? @ -[I reviewed and agree with nursing and triage notes] Were old charts reviewed (outside hosp., previous admission, EMS record, old EKG, old radiological studies, urgent care reports/EKG's, long term records)? Report findings @ -[No old charts were reviewed] Differential Diagnosis (chest pain, altered mental status, abdominal pain women, abdominal pain men, vaginal bleeding, weakness, fever, dyspnea, syncope, headache, dizziness, GI bleed, back pain, seizure, CVA, palpatations, mental health, musculoskeletal)? @ -[not applicable] EKG interpreted by me (3pts min.). @ -[As above] X-rays interpreted by me (1pt min.). @ -[None done] CT interpreted by me (1pt min.). @ -[None done] U/S interpreted by me (1pt. min.). @ -[None done] What testing was considered but not performed or refused? (CT, X-rays, U/S, labs)? Why? @ -[None] What meds were considered but not given or refused? Why? @ -[None] Did you discuss the management of the patient with other professionals (professionals i.e. DrWolfgang, PA, MECHANICAL ENGINEERING DRAFTSPERSON, lab, RT, psych nurse, social media coordinator, head of transport logistics, teacher, surveillance sensor officer, high risk case manager)? Give summary @ -[No] Was smoking cessation discussed for >3mins.? @ -[No] Was critical care preformed (if so, how long)? @ -[No] Were there social determinants of health that impacted care today? How? (Homelessness, low income, unemployed, alcoholism, drug addiction, transportation, low edu. Level, literacy, decrease access to med. care, assisted, rehab)? @ -[No] Was there de-escalation of care discussed even if they declined (Discuss DNR or withdrawal of care, Hospice)? DNR status @ -[No] What co-morbidities impacted this encounter? (DM, HTN, Smoking, COPD, CAD, Cancer, CVA, ARF, Chemo, Hep., AIDS, mental health diagnosis, sleep apnea, morbid obesity)? @ -[None] Was patient admitted / discharged? Hospital course, mention meds given and route, prescriptions, significant lab abnormalities, going to OR and other pertinent info. @ Discharged. This is a pleasant 57-year-old female who presents the emergency department with Toprol. Patient a history physical exam performed. Right great toe consistent with parenychia. Patient had incision and drainage she tolerated well. Patient provided Keflex for prophylaxis. Recommend close follow-up with PCP. Return precautions discussed. Patient discharged in stable condition. Undiagnosed new problem with uncertain prognosis? @ -[No] Drug Therapy requiring intensive monitoring for toxicity (Heparin, Nitro, Insulin, Cardizem)? @ -[No] Were any procedures done? @ -[No] Diagnosis/symptom? @ -Parenychia Acute, or Chronic, or Acute on Chronic? @ -Acute Uncomplicated (without systemic symptoms) or Complicated (systemic symptoms)? @ -Uncomplicated Side effects of treatment? @ -[No] Exacerbation, Progression, or Severe Exacerbation? @ -[No] Poses a threat to life or bodily function? How? (Chest pain, [place], [place], pneumonia, PE, COPD, DKA, ARF, appy, cholecystitis, CVA, Diverticulitis, Homicidal, Suicidal, threat to staff... and all critical care pts) @ -Low likelihood Disposition Clinical Impression: Paronychia due to ingrown nail Disposition: HOME SELF-CARE Condition: Stable Instructions (If sedation given, give patient instructions): Ingrown Nail (ED) Additional Instructions: Please take antibiotics as prescribed Please return to the nearest emergency department if worsening symptoms Prescriptions: Cephalexin [Keflex] 500 mg PO Q6HR #40 cap Is patient prescribed a controlled substance at d/c from ED?: No Referrals: Shaun Rodriguez MD [Primary Care Provider] - 1-2 days Time of Disposition: 08:54
[2023-05-30] MEDS ORDERED: CEPHALEXIN 500MG STARTER PACK 4 CAP BTL PO STA (08:58)
[2023-05-30] MEDS ORDERED: BACITRACIN OINT 1 EACH PACKET TOPICAL ONE (09:05)
== END 2023-05-30 09:15 | disposition home or self-care (01) ==
LOC: EC 07:57
DX: L60.0 Ingrowing nail (principal); J45.909 Unspecified asthma, uncomplicated; F17.200 Nicotine dependence, unspecified, uncomplicated; Z86.59 Personal history of other mental and behavioral disorders; Z88.0 Allergy status to penicillin; Z88.2 Allergy status to sulfonamides
CPT/HCPCS: 87070; 87205; 99283

== ENCOUNTER → 2023-06-04 | Outpatient (CLI) | payer OTHER ==
--- NOTE | 2023-06-04 10:02 | MR ---
EXAMINATION TYPE: MR lumbar spine wo con DATE OF EXAM: 06/04/2023 9:18 AM CLINICAL INDICATION:Female, 57 years old with history of M47.26 RADICULOPATHY; PHH, Pain x10 years/ H x of Lumbar surgery COMPARISON: 12/14/2018 TECHNIQUE: Multi planar, multi sequence imaging was performed utilizing: T1-weighted, T2-weighted, a nd turbo inversion recovery imaging of the lumbar spine. IV Contrast: (None if empty) FINDINGS: Alignment: The lumbar vertebral bodies have preserved heights and alignment. Cord: The conus medullaris and the distal spinal cord appear unremarkable with regards to their signa l intensity and morphology. Bones/Discs: Postsurgical changes at L4-L5 and S1 with susceptibility artifact. This is new from [facility]. There is mild bony edema on the inferior endplate of L3. Scattered osteophyte formation disc space narrowing and facet joint arthropathy is present. T12-L1: No evidence of significant spinal canal st enosis or neural foraminal stenosis. L1-L2: No evidence of significant spinal canal stenosis or neural foraminal stenosis. L2-L3: No evidence of significant spinal canal stenosis or neural foraminal stenosis. L3-L4: Susceptibility artifact limits evaluation. Disc degeneration changes with osteophyte and facet arthropathy result in mild to moderate spinal canal stenosis and moderate bilateral neural foraminal stenosis. L4-L5: Susceptibility artifact limits evaluation the spinal canal and neural foramen are patent. L5-S1: Susceptibility artifact limits evaluation the spinal canal and neural foramen are patent. No significant spinal canal or neural foraminal stenosis in the remainder of the visualized levels. Other findings: None. IMPRESSION: Post surgical changes with degeneration worse at L3-L4 with mild to moderate spinal canal and moderat e bilateral neural foraminal stenosis.
--- NOTE | 2023-06-04 10:12 | XR ---
EXAMINATION TYPE: XR lumbar spine with bend/flex DATE OF EXAM: 06/04/2023 CLINICAL HISTORY: pain COMPARISON: 03/27/2023 TECHNIQUE: Frontal, lateral, and oblique images of the lumbar spine are obtained. Flexion and extensi on views are submitted. FINDINGS: Postoperative changes of lumbar fusion at L4-5 and L5-S1 with intervertebral body spacers n oted. Alignment is stable at neutral, flexion and extension. Degenerative changes unchanged from prio r study. IMPRESSION: Postoperative changes as noted.
== END | disposition home or self-care (01) ==
LOC: RADMRIMAIN 08:11
PROVIDERS: ATTEND Neurological Surgery
DX: M47.26 Other spondylosis with radiculopathy, lumbar region (principal); M99.73 Connective tissue and disc stenosis of intervertebral foramina of lumbar region; Z98.890 Other specified postprocedural states
CPT/HCPCS: 72114; 72148

== ENCOUNTER 2023-06-10 14:39 | Emergency (ER) | payer OTHER ==
[2023-06-10 14:58] VITALS: RESP 16
[2023-06-10] MEDS ORDERED: MORPHINE SULFATE 4 MG/ML SYRINGE IVP STA (16:14)
[2023-06-10] MEDS ORDERED: MORPHINE SULFATE 4 MG/ML SYRINGE IM STA (16:22)
--- NOTE | 2023-06-10 16:33 | ED ---
Back Pain HPI - General Chief Complaint: Back Pain/Injury Stated Complaint: lower back pain back rash Time Seen by Provider: 06/10/23 15:50 Source: patient Limitations: no limitations - History of Present Illness Initial Comments: 57-year-old female presenting to the ED with a chief complaint of back pain. Patient states that this is a chronic issue and has an appointment for surgery with a neuro spine surgeon as scheduled later this month. However, patient states due to insurance change has been unable to follow up with her pain management doctor. Due to this, states that she has run out of her pain control medications. States that the last time she was prescribed her pain medications was at this facility on 05/26/23 which were Chilton 7.5. States that she has run out of these medications. Denies any new injury or trauma. No incontinence or saddle anesthesia. No other complaints. - Related Data Previous Rx's Medication Instructions Recorded Ibuprofen [Motrin] 800 mg PO Q8H PRN #21 tab 02/13/21 L.idocaine 5% Patch [Lidoderm 5% 1 patch TOPICAL DAILY #7 patch 02/13/21 Patch] methocarbamoL [Robaxin-750] 1,500 mg PO Q8HR #42 tablet 02/13/21 Albuterol Inhaler [Ventolin Hfa 1 puff INHALATION RT-TID #8 gm 04/26/21 Inhaler] Doxycycline Hyclate [Vibramycin] 100 mg PO BID 7 Days #14 cap 04/26/21 predniSONE [Deltasone] 40 mg PO DAILY 5 Days #10 tab 04/26/21 Cyclobenzaprine [Flexeril] 10 mg PO TID PRN #20 tab 02/23/22 L.idocaine 5% Patch [Lidoderm] 1 patch TOPICAL DAILY #10 patch 03/27/23 methocarbamoL [Robaxin-750] 1,500 mg PO TID PRN #30 tab 05/04/23 predniSONE 50 mg PO DAILY 5 Days #5 tab 05/04/23 HYDROcodone/APAP 7.5-325MG [Chilton 1 tab PO Q6HR PRN 3 Days #12 tab 05/22/23 7.5-325] Cephalexin [Keflex] 500 mg PO Q6HR #40 cap 05/30/23 HYDROcodone/APAP 7.5-325MG [[place] 1 tab PO Q6HR PRN 3 Days #12 tab 06/10/23 7.5-325] Allergies Allergy/AdvReac Type Severity Reaction Status Date / Time amoxicillin Allergy Dyspnea Verified 06/10/23 14:58 Penicillins Allergy Unknown Verified 06/10/23 14:58 sulfamethoxazole Allergy Unknown Verified 06/10/23 14:58 [From Bactrim] Review of Systems ROS Statement: Those systems with pertinent positive or pertinent negative responses have been documented in the HPI. ROS Other: All systems not noted in ROS Statement are negative. Past Medical History Past Medical History: Asthma Additional Past Medical History / Comment(s): DDD, chronic back pain History of Any Multi-Drug Resistant Organisms: None Reported Past Surgical History: Section, Hysterectomy Additional Past Surgical History / Comment(s): pain services procedures, back surgery 01/2019 Past Anesthesia/Blood Transfusion Reactions: No Reported Reaction Past Psychological History: Depression Smoking Status: Current every day smoker Past Alcohol Use History: None Reported, Abuse, Daily Past Drug Use History: None Reported General Exam Limitations: no limitations General appearance: alert, in no apparent distress Neck exam: Present: normal inspection Respiratory exam: Present: normal lung sounds bilaterally Cardiovascular Exam: Present: regular rate, normal rhythm GI/Abdominal exam: Present: soft Extremities exam: Present: other (Strength and sensation equal and intact in bilateral upper and lower extremities.) Back exam: Present: normal inspection Neurological exam: Present: alert, oriented X3 Skin exam: Present: warm, dry Course Vital Signs 06/10/23 14:56 Temperature 98.6 F Pulse Rate 76 Respiratory 16 Rate Blood Pressure 138/84 O2 Sat by Pulse 99 Oximetry Medical Decision Making - Medical Decision Making Was pt. sent in by a medical professional or institution (, PA, WEATHER STRIP MECHANIC, urgent care, hospital, or long term...) When possible be specific @ -No Did you speak to anyone other than the patient for history (EMS, parent, family, police, friend...)? What history was obtained from this source @ -No Did you review nursing and triage notes (agree or disagree)? Why? @ -I reviewed and agree with nursing and triage notes Were old charts reviewed (outside hosp., previous admission, EMS record, old EKG, old radiological studies, urgent care reports/EKG's, long term records)? Report findings @ -Old charts reviewed including prior MRI on 05/15/23 showing degenerative changes without acute finding. Differential Diagnosis (chest pain, altered mental status, abdominal pain women, abdominal pain men, vaginal bleeding, weakness, fever, dyspnea, syncope, headache, dizziness, GI bleed, back pain, seizure, CVA, palpatations, mental health, musculoskeletal)? @ -Differential Back Pain: Strain, zoster, cauda equina syndrome, epidural abscess, vertebral osteomyelitis, discitis, fracture, subluxation, disc herniation, DJD, spinal stenosis, dissection, AAA, pancreatitis, peptic ulcer disease, pyelonephritis, kidney stone, this is not meant to be an all-inclusive list. EKG interpreted by me (3pts min.). @ -None X-rays interpreted by me (1pt min.). @ -None done CT interpreted by me (1pt min.). @ -None done U/S interpreted by me (1pt. min.). @ -None done What testing was considered but not performed or refused? (CT, X-rays, U/S, labs)? Why? @ -None What meds were considered but not given or refused? Why? @ -None Did you discuss the management of the patient with other professionals (professionals i.e. , PA, WEATHER STRIP MECHANIC, lab, RT, psych nurse, social research assistant, principal web developer, teacher, radiation officer, patient case manager)? Give summary @ -No Was smoking cessation discussed for >3mins.? @ -No Was critical care preformed (if so, how long)? @ -No Were there social determinants of health that impacted care today? How? (Homelessness, low income, unemployed, alcoholism, drug addiction, transportation, low edu. Level, literacy, decrease access to med. care, prison, rehab)? @ -No Was there de-escalation of care discussed even if they declined (Discuss DNR or withdrawal of care, Hospice)? DNR status @ -No What co-morbidities impacted this encounter? (DM, HTN, Smoking, COPD, CAD, Canc er, CVA, ARF, Chemo, Hep., AIDS, mental health diagnosis, sleep apnea, morbid obesity)? @ -None Was patient admitted / discharged? Hospital course, mention meds given and route, prescriptions, significant lab abnormalities, going to OR and other pertinent info. @ -Discharge 57-year-old female presenting to the ED with chronic back pain needing a medication refill due to her Chilton running out. Denies any new injury, trauma or worsening of back pain. No saddle anesthesia or incontinence. Exam shows full strength and sensation of bilateral upper and lower extremities. Maps reviewed. Patient was prescribed Chilton 7.5 on 05/26/23 as patient stated. She provided a dose of morphine in the ED and provided sharp prescription for Chilton 7.5. Advised follow-up with her surgeon as scheduled. Discharged home in stable condition. Discussed return precautions patient verbalized route. Undiagnosed new problem with uncertain prognosis? @ -No Drug Therapy requiring intensive monitoring for toxicity (Heparin, Nitro, Insulin, Cardizem)? @ -No Were any procedures done? @ -No Diagnosis/symptom? @ -Back pain, medication refill Acute, or Chronic, or Acute on Chronic? @ -Acute Uncomplicated (without systemic symptoms) or Complicated (systemic symptoms)? @ -Uncomplicated Side effects of treatment? @ -No Exacerbation, Progression, or Severe Exacerbation? @ -No Poses a threat to life or bodily function? How? (Chest pain, [place], [place], pneumonia, PE, COPD, DKA, ARF, appy, cholecystitis, CVA, Diverticulitis, Homicidal, Suicidal, threat to staff... and all critical care pts) @ -No Disposition Clinical Impression: Back pain, Medication refill Disposition: HOME SELF-CARE Condition: Good Instructions (If sedation given, give patient instructions): Acute Low Back Pain (ED) Additional Instructions: Please return to the Emergency Department if symptoms worsen or any other concerns. Please follow-up with your surgeon. Prescriptions: HYDROcodone/APAP 7.5-325MG [Chilton 7.5-325] 1 tab PO Q6HR PRN 3 Days #12 tab PRN Reason: Pain Is patient prescribed a controlled substance at d/c from ED?: No Referrals: Shaun Rodriguez MD [Primary Care Provider] - 1-2 days Time of Disposition: 16:43
[2023-06-10 16:49] VITALS: BP 130/72; PULSE 70; TEMP 98.3
== END 2023-06-10 16:48 | disposition home or self-care (01) ==
LOC: EC 14:39
DX: G89.29 Other chronic pain (principal); M54.50 Low back pain, unspecified; J45.909 Unspecified asthma, uncomplicated; F17.200 Nicotine dependence, unspecified, uncomplicated; Z76.0 Encounter for issue of repeat prescription; Z88.0 Allergy status to penicillin; Z88.2 Allergy status to sulfonamides
CPT/HCPCS: 99283 ×2; 96372 ×2; J2270

== ENCOUNTER 2023-06-23 14:46 | Emergency (ER) | payer OTHER ==
[2023-06-23 15:02] VITALS: BP 163/86; PULSE 70; RESP 16; TEMP 97.7
--- NOTE | 2023-06-23 15:11 | ED ---
General Adult HPI - General Source: patient, RN notes reviewed Mode of arrival: ambulatory Limitations: no limitations <Brianna Greer - Last Filed: 06/23/23 15:09> - General Source: patient, RN notes reviewed Mode of arrival: ambulatory Limitations: no limitations <Saima Caldwell - Last Filed: 06/28/23 17:00> - General Chief complaint: Back Pain/Injury Stated complaint: back pain Time Seen by Provider: 06/23/23 15:09 - History of Present Illness Initial comments: This is a 49-year-old female who presents to the emergency department for back pain. States that this is a chronic issue for her and she is requesting help with pain management. Denies any new injuries or loss of bowel/bladder control. (Brianna Greer) 57-year-old female presents to the emergency department for chief complaint of back pain. She states that this is a chronic issue and has had multiple surgeries on her back in the past. She states that there has been no change in the pain, no recent trauma, denies fever, chills, loss of bowel or bladder function, saddle anesthesia. Patient states that she was released from her pain management provider and has not been able to get her Berwick. (Saima Caldwell) - Related Data Previous Rx's Medication Instructions Recorded Ibuprofen [Motrin] 800 mg PO Q8H PRN #21 tab 02/13/21 Lidocaine 5% Patch [Lidoderm 5% 1 patch TOPICAL DAILY #7 patch 02/13/21 Patch] methocarbamoL [Robaxin-750] 1,500 mg PO Q8HR #42 tablet 02/13/21 Albuterol Inhaler [Ventolin Hfa 1 puff INHALATION RT-TID #8 gm 04/26/21 Inhaler] Doxycycline Hyclate [Vibramycin] 100 mg PO BID 7 Days #14 cap 04/26/21 predniSONE [Deltasone] 40 mg PO DAILY 5 Days #10 tab 04/26/21 Cyclobenzaprine [Flexeril] 10 mg PO TID PRN #20 tab 02/23/22 Lidocaine 5% Patch [Lidoderm] 1 patch TOPICAL DAILY #10 patch 03/27/23 methocarbamoL [Robaxin-750] 1,500 mg PO TID PRN #30 tab 05/04/23 predniSONE 50 mg PO DAILY 5 Days #5 tab 05/04/23 HYDROcodone/APAP 7.5-325MG [[place] 1 tab PO Q6HR PRN 3 Days #12 tab 05/22/23 7.5-325] Cephalexin [Keflex] 500 mg PO Q6HR #40 cap 05/30/23 HYDROcodone/APAP 7.5-325MG [[place] 1 tab PO Q6HR PRN 3 Days #12 tab 06/10/23 7.5-325] Allergies Allergy/AdvReac Type Severity Reaction Status Date / Time amoxicillin Allergy Dyspnea Verified 06/23/23 14:49 Penicillins Allergy Unknown Verified 06/23/23 14:49 sulfamethoxazole Allergy Unknown Verified 06/23/23 14:49 [From Bactrim] Review of Systems ROS Other: All systems not noted in ROS Statement are negative. <Brianna Greer - Last Filed: 06/23/23 15:09> ROS Other: All systems not noted in ROS Statement are negative. <Saima Caldwell - Last Filed: 06/28/23 17:00> ROS Statement: Those systems with pertinent positive or pertinent negative responses have been documented in the HPI. Past Medical History Past Medical History: Asthma Additional Past Medical History / Comment(s): DDD, chronic back pain History of Any Multi-Drug Resistant Organisms: None Reported Past Surgical History: Section, Hysterectomy Additional Past Surgical History / Comment(s): pain services procedures, back surgery 01/2019 Past Anesthesia/Blood Transfusion Reactions: No Reported Reaction Past Psychological History: Depression Smoking Status: Current every day smoker Past Alcohol Use History: None Reported, Abuse, Daily Past Drug Use History: None Reported <Brianna Greer - Last Filed: 06/23/23 15:09> General Exam Limitations: no limitations <Brianna Greer - Last Filed: 06/23/23 15:09> Limitations: no limitations General appearance: alert, in no apparent distress Head exam: Present: atraumatic, normocephalic, normal inspection Eye exam: Present: normal appearance, PERRL, EOMI. Absent: scleral icterus, conjunctival injection, periorbital swelling ENT exam: Present: normal exam, mucous membranes moist Neck exam: Present: normal inspection. Absent: tenderness, meningismus, lymphadenopathy Respiratory exam: Present: normal lung sounds bilaterally. Absent: respiratory distress, wheezes, rales, rhonchi, stridor Cardiovascular Exam: Present: regular rate, normal rhythm, normal heart sounds. Absent: systolic murmur, diastolic murmur, rubs, gallop, clicks GI/Abdominal exam: Present: soft, normal bowel sounds. Absent: distended, tenderness, guarding, rebound, rigid Extremities exam: Present: normal inspection, full ROM, normal capillary refill. Absent: tenderness, pedal edema, joint swelling, calf tenderness Back exam: Present: normal inspection Neurological exam: Present: alert, oriented X3 Psychiatric exam: Present: normal affect, normal mood Skin exam: Present: warm, dry, intact, normal color. Absent: rash <Saima Caldwell - Last Filed: 06/28/23 17:00> - General Exam Comments Initial Comments: Visual Physical Exam Vital signs reviewed General: Well-appearing, nontoxic, no acute distress. Head: Normocephalic, atraumatic Eyes: PERRLA, EOMI ENT: Airway patent Chest: Nonlabored breathing Skin: No visual rash, normal skin tone Neuro: Alert and oriented 3 Musculoskeletal: No gross abnormalities (Brianna Greer) Course Vital Signs 06/23/23 14:47 Temperature 97.7 F Pulse Rate 70 Respiratory 16 Rate Blood Pressure 163/86 O2 Sat by Pulse 99 Oximetry Medical Decision Making <Brianna Greer - Last Filed: 06/23/23 15:09> <Saima Caldwell - Last Filed: 06/28/23 17:00> - Medical Decision Making I performed the QuickNote portion of this chart. Signed Brianna Greer PA-C. (Brianna Greer) Was pt. sent in by a medical professional or institution (BRADLEY Low, DELIVERY RN, urgent care, hospital, or fdc...) When possible be specific @ -No Did you speak to anyone other than the patient for history (EMS, parent, family, police, friend...)? What history was obtained from this source @ -No Did you review nursing and triage notes (agree or disagree)? Why? @ -I reviewed and agree with nursing and triage notes Were old charts reviewed (outside hosp., previous admission, EMS record, old EKG, old radiological studies, urgent care reports/EKG's, fdc records)? Report findings @ -No old charts were reviewed Differential Diagnosis (chest pain, altered mental status, abdominal pain women, abdominal pain men, vaginal bleeding, weakness, fever, dyspnea, syncope, headache, dizziness, GI bleed, back pain, seizure, CVA, palpatations, mental health, musculoskeletal)? @ -Differential Back Pain: Strain, zoster, cauda equina syndrome, epidural abscess, vertebral osteomyelitis, discitis, fracture, subluxation, disc herniation, DJD, spinal stenosis, dissection, AAA, pancreatitis, peptic ulcer disease, pyelonephritis, kidney stone, this is not meant to be an all-inclusive list. EKG interpreted by me (3pts min.). @ -none X-rays interpreted by me (1pt min.). @ -None done CT interpreted by me (1pt min.). @ -None done U/S interpreted by me (1pt. min.). @ -None done What testing was considered but not performed or refused? (CT, X-rays, U/S, labs)? Why? @ -X-rays considered patient has had no new trauma What meds were considered but not given or refused? Why? @ -None Did you discuss the management of the patient with other professionals (professionals i.e. , PA, DELIVERY RN, lab, RT, psych nurse, group social worker, cane splicer, teacher, light armored reconnaissance officer, case management social worker)? Give summary @ -No Was smoking cessation discussed for >3mins.? @ -No Was critical care preformed (if so, how long)? @ -No Were there social determinants of health that impacted care today? How? (Homelessness, low income, unemployed, alcoholism, drug addiction, transportation, low edu. Level, literacy, decrease access to med. care, fci, rehab)? @ -No Was there de-escalation of care discussed even if they declined (Discuss DNR or withdrawal of care, Hospice)? DNR status @ -No What co-morbidities impacted this encounter? (DM, HTN, Smoking, COPD, CAD, Cancer, CVA, ARF, Chemo, Hep., AIDS, mental health diagnosis, sleep apnea, morbid obesity)? @ -None Was patient admitted / discharged? Hospital course, mention meds given and route, prescriptions, significant lab abnormalities, going to OR and other pertinent info. @ -Discharged. Patient presented to the emergency department with chief complaint of back pain, chronic in nature. Patient has no red flag symptoms at this time. X-rays considered patient has had no new trauma. Patient states that she ran out of her Berwick and would like a new prescription. Discussed with patient that we can provide a dose of medication in the emergency department for pain management but her prescription opiates would not be filled. Patient understanding and agreeable with plan. Patient stable at time of discharge. Case discussed with Dr. Banda Undiagnosed new problem with uncertain prognosis? @ -No Drug Therapy requiring intensive monitoring for toxicity (Heparin, Nitro, Insulin, Cardizem)? @ -No Were any procedures done? @ -No Diagnosis/symptom? @ -back pain Acute, or Chronic, or Acute on Chronic? @ -chronic Uncomplicated (without systemic symptoms) or Complicated (systemic symptoms)? @ -uncomplicated Side effects of treatment? @ -No Exacerbation, Progression, or Severe Exacerbation? @ -No Poses a threat to life or bodily function? How? (Chest pain, [place], [place], pneumonia, PE, COPD, DKA, ARF, appy, cholecystitis, CVA, Diverticulitis, Homicidal, Suicidal, threat to staff... and all critical care pts) @ -No (Saima Caldwell) Disposition <Brianna Greer - Last Filed: 06/23/23 15:09> Is patient prescribed a controlled substance at d/c from ED?: No <Saima Caldwell - Last Filed: 06/28/23 17:00> Clinical Impression: Chronic back pain Disposition: HOME SELF-CARE Condition: Stable Instructions (If sedation given, give patient instructions): Chronic Back Pain (DC) Additional Instructions: Please follow up with your primary care provider. Return to the emergency department for new or worsening symptoms. Referrals: Shaun Rodriguez MD [Primary Care Provider] - 1-2 days
[2023-06-23] MEDS ORDERED: MORPHINE SULFATE 4 MG/ML SYRINGE IM STA (17:37)
== END 2023-06-23 18:56 | disposition home or self-care (01) ==
LOC: EC 14:46
DX: G89.29 Other chronic pain (principal); M54.9 Dorsalgia, unspecified; J45.909 Unspecified asthma, uncomplicated; F17.200 Nicotine dependence, unspecified, uncomplicated; Z86.59 Personal history of other mental and behavioral disorders; Z79.899 Other long term (current) drug therapy; Z88.0 Allergy status to penicillin; Z88.2 Allergy status to sulfonamides
CPT/HCPCS: 99283; 96372; J2270

== ENCOUNTER → 2023-06-30 | Outpatient (CLI) | payer OTHER ==
--- NOTE | 2023-06-30 11:55 | XR ---
EXAMINATION TYPE: XR chest 2V DATE OF EXAM: 06/30/2023 COMPARISON: 04/26/2021 TECHNIQUE: PA and lateral views submitted. HISTORY: Preop FINDINGS: The lungs are clear and there is no pneumothorax, pleural effusion, or focal pneumonia. Heart size normal and no overt failure. Osseous structures demonstrate hypertrophic and degenerative changes of the spine. AC joint arthropathy. Chronic deformity distal right clavicle. IMPRESSION: 1. No acute process.
== END | disposition home or self-care (01) ==
LOC: RADXRMAIN 11:24
PROVIDERS: ATTEND Neurological Surgery
DX: Z01.818 Encounter for other preprocedural examination (principal); M47.26 Other spondylosis with radiculopathy, lumbar region; M51.16 Intervertebral disc disorders with radiculopathy, lumbar region
CPT/HCPCS: 71046

== ENCOUNTER → 2023-06-30 | Outpatient (CLI) | payer OTHER ==
[2023-06-30 22:01] LABS: Appearance,Urine Turbid (Clear); Bilirubin,Urine Negative (Negative); Blood,Urine Negative (Negative); Color,Urine Yellow (Yellow); Ketones,Urine Negative (Negative); Nitrite,Urine Negative (Negative); PH, Urine 5.5; Specific Gravity,Urine 1.021 (1.001-1.030)
[2023-06-30 22:09] LABS: Bacteria,Urine None Seen (None Seen)
== END | disposition home or self-care (01) ==
LOC: LABWHC1 11:36
PROVIDERS: ATTEND Neurological Surgery
DX: Z01.812 Encounter for preprocedural laboratory examination (principal); M47.26 Other spondylosis with radiculopathy, lumbar region; M43.16 Spondylolisthesis, lumbar region
CPT/HCPCS: 81001; 87070

== ENCOUNTER 2023-07-11 09:48 | Emergency (ER) | payer OTHER ==
[2023-07-11 10:13] VITALS: TEMP 97.6
[2023-07-11] MEDS ORDERED: HYDROmorphone 1 MG/ML 1 ML SYRINGE IM STA (10:48)
[2023-07-11] MEDS ORDERED: ACET/COD 300 MG/30 MG STARTER PACK 6 TAB BTL PO STA (10:48)
--- NOTE | 2023-07-11 10:49 | ED ---
Back Pain HPI - General Chief Complaint: Back Pain/Injury Stated Complaint: Back Pain Time Seen by Provider: 07/11/23 10:40 Source: patient, RN notes reviewed Limitations: no limitations - History of Present Illness Initial Comments: 57-year-old female presents emergency Department with chief complaint of back pain. This is an ongoing issue she is scheduled for surgery in 6 days. Patient states that she was seen Dr. Bar for pain management but states that they stopped accepting her insurance. Patient is requesting short course of pain control. She denies any new injuries denies any bowel, bladder retention complains of upper lumbar back pain. - Related Data Previous Rx's Medication Instructions Recorded Ibuprofen [Motrin] 800 mg PO Q8H PRN #21 tab 02/13/21 Lidocaine 5% Patch [Lidoderm 5% 1 patch TOPICAL DAILY #7 patch 02/13/21 Patch] methocarbamoL [Robaxin-750] 1,500 mg PO Q8HR #42 tablet 02/13/21 Albuterol Inhaler [Ventolin Hfa 1 puff INHALATION RT-TID #8 gm 04/26/21 Inhaler] Doxycycline Hyclate [Vibramycin] 100 mg PO BID 7 Days #14 cap 04/26/21 predniSONE [Deltasone] 40 mg PO DAILY 5 Days #10 tab 04/26/21 Cyclobenzaprine [Flexeril] 10 mg PO TID PRN #20 tab 02/23/22 Lidocaine 5% Patch [Lidoderm] 1 patch TOPICAL DAILY #10 patch 03/27/23 methocarbamoL [Robaxin-750] 1,500 mg PO TID PRN #30 tab 05/04/23 predniSONE 50 mg PO DAILY 5 Days #5 tab 05/04/23 HYDROcodone/APAP 7.5-325MG [[place] 1 tab PO Q6HR PRN 3 Days #12 tab 05/22/23 7.5-325] Cephalexin [Keflex] 500 mg PO Q6HR #40 cap 05/30/23 HYDROcodone/APAP 7.5-325MG [[place] 1 tab PO Q6HR PRN 3 Days #12 tab 06/10/23 7.5-325] Cyclobenzaprine [Flexeril] 10 mg PO TID PRN #15 tab 07/11/23 Allergies Allergy/AdvReac Type Severity Reaction Status Date / Time amoxicillin Allergy Dyspnea Verified 07/11/23 10:10 Penicillins Allergy Unknown Verified 07/11/23 10:10 sulfamethoxazole Allergy Unknown Verified 07/11/23 10:10 [From Bactrim] Review of Systems ROS Statement: Those systems with pertinent positive or pertinent negative responses have been documented in the HPI. ROS Other: All systems not noted in ROS Statement are negative. Past Medical History Past Medical History: Asthma Additional Past Medical History / Comment(s): DDD, chronic back pain History of Any Multi-Drug Resistant Organisms: None Reported Past Surgical History: Section, Hysterectomy Additional Past Surgical History / Comment(s): pain services procedures, back surgery 01/2019 Past Anesthesia/Blood Transfusion Reactions: No Reported Reaction Past Psychological History: Depression Smoking Status: Current every day smoker Past Alcohol Use History: None Reported, Abuse, Daily Past Drug Use History: None Reported General Exam Limitations: no limitations General appearance: alert, in no apparent distress Head exam: Present: atraumatic, normocephalic, normal inspection Neck exam: Present: normal inspection, full ROM. Absent: tenderness, meningismus, lymphadenopathy Respiratory exam: Present: normal lung sounds bilaterally. Absent: respiratory distress, wheezes, rales, rhonchi, stridor Cardiovascular Exam: Present: regular rate, normal rhythm, normal heart sounds. Absent: systolic murmur, diastolic murmur, rubs, gallop, clicks GI/Abdominal exam: Present: soft, normal bowel sounds. Absent: distended, tenderness, guarding, rebound, rigid Extremities exam: Present: normal inspection, full ROM, normal capillary refill. Absent: tenderness, pedal edema, joint swelling, calf tenderness Back exam: Present: full ROM, tenderness, paraspinal tenderness Course Vital Signs 07/11/23 07/11/23 10:09 11:27 Temperature 97.6 F Pulse Rate 65 62 Respiratory 18 20 Rate Blood Pressure 118/70 128/76 O2 Sat by Pulse 97 97 Oximetry Medical Decision Making - Medical Decision Making Was pt. sent in by a medical professional or institution (, PA, AUGER SUPERVISOR, urgent care, hospital, or fpc...) When possible be specific @ -No Did you speak to anyone other than the patient for history (EMS, parent, family, police, friend...)? What history was obtained from this source @ -No Did you review nursing and triage notes (agree or disagree)? Why? @ -I reviewed and agree with nursing and triage notes Were old charts reviewed (outside hosp., previous admission, EMS record, old EK G, old radiological studies, urgent care reports/EKG's, fpc records)? Report findings @ -No old charts were reviewed Differential Diagnosis (chest pain, altered mental status, abdominal pain women, abdominal pain men, vaginal bleeding, weakness, fever, dyspnea, syncope, headache, dizziness, GI bleed, back pain, seizure, CVA, palpatations, mental health, musculoskeletal)? @ -Differential Back Pain: Strain, zoster, cauda equina syndrome, epidural abscess, vertebral osteomyelitis, discitis, fracture, subluxation, disc herniation, DJD, spinal stenosis, dissection, AAA, pancreatitis, peptic ulcer disease, pyelonephritis, kidney stone, this is not meant to be an all-inclusive list.le EKG interpreted by me (3pts min.). @ -None X-rays interpreted by me (1pt min.). @ -None done CT interpreted by me (1pt min.). @ -None done U/S interpreted by me (1pt. min.). @ -None done What testing was considered but not performed or refused? (CT, X-rays, U/S, labs)? Why? @ -[Considered x-ray, CT though this is chronic in nature no acute injuries. What meds were considered but not given or refused? Why? @ -None Did you discuss the management of the patient with other professionals (professionals i.e. , PA, AUGER SUPERVISOR, lab, RT, psych nurse, social work manager, food and drug research scientist, teacher, county health officer, complex case manager)? Give summary @ -No Was smoking cessation discussed for >3mins.? @ -No Was critical care preformed (if so, how long)? @ -No Were there social determinants of health that impacted care today? How? (Homelessness, low income, unemployed, alcoholism, drug addiction, transportation, low edu. Level, literacy, decrease access to med. care, longterm, rehab)? @ -No Was there de-escalation of care discussed even if they declined (Discuss DNR or withdrawal of care, Hospice)? DNR status @ -No What co-morbidities impacted this encounter? (DM, HTN, Smoking, COPD, CAD, Cancer, CVA, ARF, Chemo, Hep., AIDS, mental health diagnosis, sleep apnea, morbid obesity)? @ -None Was patient admitted / discharged? Hospital course, mention meds given and route, prescriptions, significant lab abnormalities, going to OR and other pertinent info. @ -Discharge patient treated for back pain. This is a chronic condition she is scheduled for surgery patient has no red flag symptoms we discharged in stable condition. Undiagnosed new problem with uncertain prognosis? @ -No Drug Therapy requiring intensive monitoring for toxicity (Heparin, Nitro, Insulin, Cardizem)? @ -No Were any procedures done? @ -No Diagnosis/symptom? @ -Lumbar back pain Acute, or Chronic, or Acute on Chronic? @ -[Chronic Uncomplicated (without systemic symptoms) or Complicated (systemic symptoms)? @ -Uncomplicated Side effects of treatment? @ -No Exacerbation, Progression, or Severe Exacerbation? @ -No Poses a threat to life or bodily function? How? (Chest pain, [place], VT, pneumonia, PE, COPD, DKA, ARF, appy, cholecystitis, CVA, Diverticulitis, Homicidal, Suicidal, threat to staff... and all critical care pts) @ -No Disposition Clinical Impression: Chronic back pain Disposition: HOME SELF-CARE Condition: Stable Instructions (If sedation given, give patient instructions): Acute Low Back Pain (ED) Additional Instructions: Please return to the Emergency Department if symptoms worsen or any other concerns. Prescriptions: Cyclobenzaprine [Flexeril] 10 mg PO TID PRN #15 tab PRN Reason: Muscle Spasm Is patient prescribed a controlled substance at d/c from ED?: No Referrals: Shaun Rodriguez MD [Primary Care Provider] - 1-2 days Time of Disposition: 10:49
[2023-07-11 11:43] VITALS: BP 128/76; PULSE 62; RESP 20
== END 2023-07-11 11:32 | disposition home or self-care (01) ==
LOC: EC 09:48
DX: G89.29 Other chronic pain (principal); M54.9 Dorsalgia, unspecified; F17.200 Nicotine dependence, unspecified, uncomplicated; J45.909 Unspecified asthma, uncomplicated; Z88.0 Allergy status to penicillin; Z88.2 Allergy status to sulfonamides; Z86.59 Personal history of other mental and behavioral disorders
CPT/HCPCS: 99283; 96372; J1170

== ENCOUNTER 2023-08-29 09:54 | Emergency (ER) | payer OTHER ==
[2023-08-29] MEDS: KETOROLAC 15 MG/ML 1 ML VIAL IM STA (10:31)
[2023-08-29] MEDS: ORPHENADRINE 30 MG/ML 2 ML VIAL IM STA (10:31)
[2023-08-29] MEDS: MORPHINE SULFATE 4 MG/ML SYRINGE IM STA (10:32)
--- NOTE | 2023-08-29 10:42 | ED ---
Extremity Problem HPI - General Chief complaint: Extremity Problem,Nontraumatic Stated complaint: R hip pain Time Seen by Provider: 08/29/23 10:01 Source: patient, RN notes reviewed Mode of arrival: ambulatory Limitations: no limitations - History of Present Illness Initial comments: This is a 57-year-old female who presents to the emergency department for right hip pain. She had back surgery at [facility] last month, and since then has had problems with her right hip. Over the last week this is becoming increasingly more painful. She denies any new injuries. Her family wonders if this may be related to the surgery or positioning of her leg during the surgery and being strapped down. Not currently taking anything for management of her pain. She is still able to ambulate, but states that it is difficult. MD Complaint: extremity pain - Related Data Previous Rx's Medication Instructions Recorded Ibuprofen [Motrin] 800 mg PO Q8H PRN #21 tab 02/13/21 Lidocaine 5% Patch [Lidoderm 5% 1 patch TOPICAL DAILY #7 patch 02/13/21 Patch] methocarbamoL [Robaxin-750] 1,500 mg PO Q8HR #42 tablet 02/13/21 Albuterol Inhaler [Ventolin Hfa 1 puff INHALATION RT-TID #8 gm 04/26/21 Inhaler] Doxycycline Hyclate [Vibramycin] 100 mg PO BID 7 Days #14 cap 04/26/21 predniSONE [Deltasone] 40 mg PO DAILY 5 Days #10 tab 04/26/21 Cyclobenzaprine [Flexeril] 10 mg PO TID PRN #20 tab 02/23/22 Lidocaine 5% Patch [Lidoderm] 1 patch TOPICAL DAILY #10 patch 03/27/23 methocarbamoL [Robaxin-750] 1,500 mg PO TID PRN #30 tab 05/04/23 predniSONE 50 mg PO DAILY 5 Days #5 tab 05/04/23 HYDROcodone/APAP 7.5-325MG [[place] 1 tab PO Q6HR PRN 3 Days #12 tab 05/22/23 7.5-325] Cephalexin [Keflex] 500 mg PO Q6HR #40 cap 05/30/23 HYDROcodone/APAP 7.5-325MG [[place] 1 tab PO Q6HR PRN 3 Days #12 tab 11/30/23 7.5-325] Cyclobenzaprine [Flexeril] 10 mg PO TID PRN #15 tab 07/11/23 Ketorolac [Toradol] 10 mg PO Q6HR PRN #15 tab 08/29/23 methocarbamoL [Robaxin-750] 1,500 mg PO TID PRN #30 tab 08/29/23 Allergies Allergy/AdvReac Type Severity Reaction Status Date / Time amoxicillin Allergy Dyspnea Verified 08/29/23 10:06 Penicillins Allergy Unknown Verified 08/29/23 10:06 sulfamethoxazole Allergy Unknown Verified 08/29/23 10:06 [From Bactrim] Review of Systems ROS Statement: Those systems with pertinent positive or pertinent negative responses have been documented in the HPI. ROS Other: All systems not noted in ROS Statement are negative. Past Medical History Past Medical History: Asthma Additional Past Medical History / Comment(s): DDD, chronic back pain History of Any Multi-Drug Resistant Organisms: None Reported Past Surgical History: Section, Hysterectomy Additional Past Surgical History / Comment(s): pain services procedures, back surgery 01/2019 Past Anesthesia/Blood Transfusion Reactions: No Reported Reaction Past Psychological History: Depression Smoking Status: Current every day smoker Past Alcohol Use History: None Reported, Abuse, Daily Past Drug Use History: None Reported General Exam Limitations: no limitations General appearance: alert, in no apparent distress Head exam: Present: atraumatic, normocephalic, normal inspection Respiratory exam: Present: normal lung sounds bilaterally. Absent: respiratory distress, wheezes, rales, rhonchi, stridor Cardiovascular Exam: Present: regular rate, normal rhythm, normal heart sounds. Absent: systolic murmur, diastolic murmur, rubs, gallop, clicks Extremities exam: Present: other (Tenderness to palpation over the right greater trochanter. Full ROM, however this does induce pain. No deformities.) Neurological exam: Present: alert, oriented X3, CN II-XII intact Psychiatric exam: Present: normal affect, normal mood Skin exam: Present: warm, dry, intact, normal color. Absent: rash Course Vital Signs 08/29/23 08/29/23 10:04 12:16 Temperature 98 F 98.1 F Pulse Rate 75 78 Respiratory 20 18 Rate Blood Pressure 144/84 153/86 O2 Sat by Pulse 98 97 Oximetry Medical Decision Making - Medical Decision Making This is a 57-year-old female who presents to the emergency department for right hip pain. Was pt. sent in by a medical professional or institution? @ -No Did you speak to anyone other than the patient for history? @ -No Did you review nursing and triage notes? @ -Yes, and I agree, it is accurate with regards to the patient's symptoms. Were old charts reviewed? @ -No Differential Diagnosis? @ -Differential Musculoskeletal: Muscular strain, contusion, ligament sprain, fracture, arthritis, septic arthritis, bursitis, cellulitis, muscle spasm, nerve compression, DVT, arterial occlusion, herpes zoster, electrolyte abnormality, tumor.... This is not meant to be in all inclusive list EKG interpreted by me (3pts min.)? @ -Not obtained X-rays interpreted by me (1pt min.)? @ -X-ray of the right hip obtained. My interpretation identifies no acute fr actures. CT interpreted by me (1pt min.)? @ -Not obtained U/S interpreted by me (1pt. min.)? @ -Not obtained What testing was considered but not performed? (CT, X-rays, U/S, labs)? Why? @ -None What meds were considered but not given? Why? @ -None Did you discuss the management of the patient with other professionals? @ -No Did you reconcile home meds? @ -No Was smoking cessation discussed for >3mins.? @ -No Was critical care preformed (if so, how long)? @ -No Were there social determinants of health that impacted care today? How? (Homelessness, low income, unemployed, alcoholism, drug addiction, transportation, low edu. Level, literacy, decrease access to med. care, fci, rehab)? @ -No Was there de-escalation of care discussed even if they declined? (Discuss DNR or withdrawal of care, Hospice)? @ -No What co-morbidities impacted this encounter? (DM, HTN, Smoking, COPD, CAD, Cancer, CVA, Hep., AIDS, mental health diagnosis, sleep apnea, morbid obesity)? @ -None Was patient admitted / discharged? @ -Discharged. X-ray of the right hip obtained demonstrating degenerative changes without any other acute process. Her symptoms were well controlled in the emergency department. Prescription for Toradol and Robaxin provided with dosing instructions reviewed. Patient discharged home in stable condition and will follow up with her primary care provider. Undiagnosed new problem with uncertain prognosis? @ -None Drug Therapy requiring intensive monitoring for toxicity (Heparin, Nitro, Insulin, Cardizem)? @ -None Were any procedures done? @ -None Diagnosis/symptom? @ -Right hip pain Acute, or Chronic, or Acute on Chronic? @ -Acute Uncomplicated (without systemic symptoms) or Complicated (systemic symptoms)? @ -Uncomplicated Side effects of treatment? @ -None Exacerbation, Progression, or Severe Exacerbation] @ -Not applicable Poses a threat to life or bodily function? @ -No Return precautions reviewed in depth, the patient is instructed to return to the emergency department with any new, worsening, or concerning symptoms. Patient verbalized understanding. This case was discussed in detail with the attending ED physician, Dr. Barrera. Presentation, findings, and treatment plan discussed in detail as well. - Radiology Data Radiology results: report reviewed, image reviewed Disposition Clinical Impression: Right hip pain Disposition: HOME SELF-CARE Instructions (If sedation given, give patient instructions): Hip Pain (ED) Additional Instructions: Return to the emergency department with any new, worsening, or concerning symptoms. Take the Toradol with Tylenol as needed for pain relief. If you choose to take the Toradol, do not take any other anti-inflammatories such as ibuprofen, take one or the other. Take the Robaxin as 1-2 tablets up to 3-4 times daily and be aware that it may make you drowsy. Follow up with your primary care provider in 1-2 days. Prescriptions: methocarbamoL [Robaxin-750] 1,500 mg PO TID PRN #30 tab PRN Reason: Pain Ketorolac [Toradol] 10 mg PO Q6HR PRN #15 tab PRN Reason: Pain Is patient prescribed a controlled substance at d/c from ED?: No Referrals: Shaun Rodriguez MD [Primary Care Provider] - 1-2 days Time of Disposition: 12:12
--- NOTE | 2023-08-29 11:08 | XR ---
EXAMINATION TYPE: XR Hip Complete RT DATE OF EXAM: 08/29/2023 10:55 AM CLINICAL INDICATION:Female, 57 years old with history of Pain; PHH COMPARISON: None. TECHNIQUE: XR Hip Complete RT; hip was examined in the frontal and lateral projections and a AP pelvi s. FINDINGS: No evidence for acute process, joint dislocation or significant soft tissue swelling. Osteo phyte formation of the superior acetabulum of the hip. IMPRESSION: 1. No evidence for acute process. 2. Mild hip osteoarthrosis.
[2023-08-29 12:31] VITALS: BP 153/86; PULSE 78; RESP 18; TEMP 98.1
== END 2023-08-29 12:18 | disposition home or self-care (01) ==
LOC: EC 09:54
DX: M25.551 Pain in right hip (principal); J45.909 Unspecified asthma, uncomplicated; F17.200 Nicotine dependence, unspecified, uncomplicated; Z88.0 Allergy status to penicillin; Z88.2 Allergy status to sulfonamides
CPT/HCPCS: 73502; 99284; 96372 ×3; J2270; J2360; J1885

== ENCOUNTER → 2023-12-09 | Outpatient (CLI) | payer OTHER ==
--- NOTE | 2023-12-09 20:29 | MM ---
Reason for Exam: Screening (asymptomatic). Last mammogram was performed 1 year(s) and 2 month(s) ago. Patient History: Menarche at age 14. First Full-Term at age 19. Left ovary removed at age 29. Right ovary removed at age 29. Hysterectomy at age 29. Postmenopausal. Patient has history of breast feeding. Risk Values: Amanda 5 year model risk: 0.7%. NCI Lifetime model risk: 4.3%. Prior Study Comparison: 02/26/2012 Bilateral Screening Mammogram, [facility]. 03/25/2016 Bilateral Screening Mammogram, [facility]. 09/16/2022 Bilateral MG screening mammo w CAD, [facility]. Tissue Density: There are scattered areas of fibroglandular density. Findings: Analyzed By CAD. There is no suspicious group of microcalcifications or new suspicious mass in either breast. Overall Assessment: Negative, BI-RAD 1 Management: Screening Mammogram of both breasts in 1 year. . Patient should continue monthly self-breast exams. A clinical breast exam by your physician is recommended on an annual basis. This exam should not preclude additional follow-up of suspicious palpable abnormalities. Note on Amanda scores and lifetime risk: 1. A Amanda score greater than 3% is considered moderate risk. If this is the case, consider specialist referral to assess eligibility for a risk reducing agent. 2. If overall lifetime risk for the development of breast cancer is 20% or higher, the patient may qualify for future screening with alternating mammogram and breast MRI. Electronically signed and approved by: Betty He M.D. Radiologist
== END | disposition home or self-care (01) ==
LOC: RADMAMWWP 10:17
PROVIDERS: ATTEND Family Medicine
DX: Z12.31 Encounter for screening mammogram for malignant neoplasm of breast (principal); M51.9 Unspecified thoracic, thoracolumbar and lumbosacral intervertebral disc disorder; Z78.0 Asymptomatic menopausal state
CPT/HCPCS: 77067

== ENCOUNTER 2024-04-17 09:49 | Emergency (ER) | payer OTHER ==
[2024-04-17] MEDS: MORPHINE SULFATE 4 MG/ML SYRINGE IM STA (12:02)
[2024-04-17] MEDS: methylPREDNISolone SOD SUCCI 125 MG/2 ML VIAL IM ONE (12:05)
[2024-04-17] MEDS: LIDOCAINE 4% PATCH TOPICAL ONE (12:05)
--- NOTE | 2024-04-17 12:33 | CT ---
EXAMINATION TYPE: CT lumbar spine wo con CT DLP: 959.6 mGycm, Automated exposure control for dose reduction was used. DATE OF EXAM: 04/17/2024 12:23 PM COMPARISON: Lumbar spine radiograph 06/04/2023, MRI lumbar spine 06/04/2023, CT abdomen pelvis 2019. CLINICAL INDICATION:Female, 58 years old with history of low back pain; PHH, CHRONIC PAIN HX OF BACK SX TECHNIQUE: Multiple axial images were obtained from the midportion of T11 through the sacroiliac ivania nts. Soft tissue and bone windows in coronal and sagittal planes were obtained and reviewed. Contrast used: none. Oral contrast used: none. FINDINGS: Alignment: There are 5 lumbar type vertebral bodies within normal alignment. Bone: No evidence of fracture is identified. Surgical changes with bilateral pedicular screws and ro ds and disc spacers involving L4-S1. Additional screw with disc fusion cage involving L3-L4. Hardware appears intact. This creates streak artifact which limits evaluation. Sclerotic endplate changes mos t prominently involving L3-L4. Marginal increase in size of right iliac bone sclerotic lesion measuri ng 1.2 cm, previously 0.[address] 02/20/2020. Degenerative changes of both SI joints. Discs: T12-L1: No spinal canal or neural foraminal stenosis is identified. L1-L2: No spinal canal or neural foraminal stenosis is identified. L2-L3: No spinal canal or neural foraminal stenosis is identified. L3-L4: Broad-based disc bulge and facet arthropathy resulting in mild central canal stenosis. Moderat e bilateral neuroforaminal stenosis. L4-L5: No spinal canal or neural foraminal stenosis is identified within limitations due to streak ar tifact. L5-S1: No spinal canal or neural foraminal stenosis is identified within limitations due to streak ar tifact. Other: Gallbladder is surgically absent. IMPRESSION: 1. No evidence for spinal fracture. 2. Postsurgical changes from fusion L3-S5. Hardware appears intact. 3. Degenerative disc disease and facet arthropathy most pronounced at L3-L4 with at least mild spinal canal stenosis and moderate bilateral neuroforaminal stenosis. [facility], , 04/17/2024 12:31 PM
--- NOTE | 2024-04-17 13:18 | ED ---
General Adult HPI - General Chief complaint: Back Pain/Injury Stated complaint: Back pain Time Seen by Provider: 04/17/24 11:45 Source: patient, RN notes reviewed, old records reviewed Mode of arrival: ambulatory Limitations: no limitations - History of Present Illness Initial comments: Patient is a 58-year-old female who presents emergency department complaining of back pain. Has chronic back pain but states that she picked up her dog sometime last week and is getting worse. Patient does have a pain contract. Denies any saddle paresthesias, urinary or bowel incontinence or retention, lower extremity paralysis. Denies any other acute complaints at this time other than lower back pain which seems to be acute on chronic. No other obvious injuries. Has not followed up with her spinal surgeon regarding this new or "worsening" pain. Presents for further evaluation at this time. - Related Data Previous Rx's Medication Instructions Recorded Ibuprofen [Motrin] 800 mg PO Q8H PRN #21 tab 02/13/21 Lidocaine 5% Patch [Lidoderm 5% 1 patch TOPICAL DAILY #7 patch 02/13/21 Patch] methocarbamoL [Robaxin-750] 1,500 mg PO Q8HR #42 tablet 02/13/21 Albuterol Inhaler [Ventolin Hfa 1 puff INHALATION RT-TID #8 gm 04/26/21 Inhaler] Doxycycline Hyclate [Vibramycin] 100 mg PO BID 7 Days #14 cap 04/26/21 predniSONE [Deltasone] 40 mg PO DAILY 5 Days #10 tab 04/26/21 Cyclobenzaprine [Flexeril] 10 mg PO TID PRN #20 tab 02/23/22 Lidocaine 5% Patch [Lidoderm] 1 patch TOPICAL DAILY #10 patch 03/27/23 methocarbamoL [Robaxin-750] 1,500 mg PO TID PRN #30 tab 05/04/23 predniSONE 50 mg PO DAILY 5 Days #5 tab 05/04/23 HYDROcodone/APAP 7.5-325MG [[place] 1 tab PO Q6HR PRN 3 Days #12 tab 05/22/23 7.5-325] Cephalexin [Keflex] 500 mg PO Q6HR #40 cap 05/30/23 HYDROcodone/APAP 7.5-325MG [[place] 1 tab PO Q6HR PRN 3 Days #12 tab 06/10/23 7.5-325] Cyclobenzaprine [Flexeril] 10 mg PO TID PRN #15 tab 07/11/23 Ketorolac [Toradol] 10 mg PO Q6HR PRN #15 tab 08/29/23 methocarbamoL [Robaxin-750] 1,500 mg PO TID PRN #30 tab 08/29/23 Allergies Allergy/AdvReac Type Severity Reaction Status Date / Time amoxicillin Allergy Dyspnea Verified 04/17/24 09:58 Penicillins Allergy Unknown Verified 04/17/24 09:58 sulfamethoxazole Allergy Unknown Verified 04/17/24 09:58 [From Bactrim] Review of Systems ROS Statement: Those systems with pertinent positive or pertinent negative responses have been documented in the HPI. Review of Systems: CONST: Denies fever EYES: Denies blurry vision ENT: Denies nasal congestion C/V: Denies Chest pain RESP: Denies shortness of breath GI: Denies abdominal pain : Denies dysuria SKIN: Denies rash. MSK: Endorses joint pain. NEURO: Denies headache ROS Other: All systems not noted in ROS Statement are negative. Past Medical History Past Medical History: Asthma Additional Past Medical History / Comment(s): DDD, chronic back pain History of Any Multi-Drug Resistant Organisms: None Reported Past Surgical History: Section, Hysterectomy Additional Past Surgical History / Comment(s): pain services procedures, back surgery 01/2019 Past Anesthesia/Blood Transfusion Reactions: No Reported Reaction Past Psychological History: Depression Smoking Status: Current every day smoker Past Alcohol Use History: None Reported Past Drug Use History: None Reported General Exam - General Exam Comments Initial Comments: General: Appears in no acute distress. HEAD: Normal with no signs of head trauma. EYES: EOMI. ENT: Hearing grossly intact. RESPIRATORY: No respiratory distress. C/V: Regular rate and rhythm. ABD: Abdomen is nondistended. EXT: No obvious deformity.. Midline lower lumbar spine tenderness to palpation without any step-offs or deformities of the spine. Prior surgical scars present along the back. SKIN: No rashes or lesions observed on exposed skin. NEURO: Alert and oriented. No focal neurological deficits. Limitations: no limitations Course Vital Signs 04/17/24 04/17/24 09:56 13:34 Temperature 98 F 98.0 F Pulse Rate 70 68 Respiratory 20 18 Rate Blood Pressure 152/76 148/74 O2 Sat by Pulse 98 98 Oximetry Medical Decision Making - Medical Decision Making Was pt. sent in by a medical professional or institution (BRADLEY Low, LINK TRAINER OPERATOR, urgent care, hospital, or detention...) When possible be specific @ -No Did you speak to anyone other than the patient for history (EMS, parent, family, police, friend...)? What history was obtained from this source @ -No Did you review nursing and triage notes (agree or disagree)? Why? @ -I reviewed and agree with nursing and triage notes Were old charts reviewed (outside hosp., previous admission, EMS record, old E KG, old radiological studies, urgent care reports/EKG's, detention records)? Report findings @ -Old charts reviewed confirming patient is on chronic analgesia medications. He has been seen here numerous times for low back pain. Differential Diagnosis (chest pain, altered mental status, abdominal pain women, abdominal pain men, vaginal bleeding, weakness, fever, dyspnea, syncope, headache, dizziness, GI bleed, back pain, seizure, CVA, palpatations, mental health, musculoskeletal)? @ -Differential Back Pain: Strain, zoster, cauda equina syndrome, epidural abscess, vertebral osteomyelitis , discitis, fracture, subluxation, disc herniation, DJD, spinal stenosis, dissection, AAA, pancreatitis, peptic ulcer disease, pyelonephritis, kidney stone, this is not meant to be an all-inclusive list. EKG interpreted by me (3pts min.). @ -None done X-rays interpreted by me (1pt min.). @ -None done CT interpreted by me (1pt min.). @ -CT lumbar spine reveals no obvious acute changes to the lumbar spine. Chronic degenerative changes as well as postsurgical changes noted. U/S interpreted by me (1pt. min.). @ -None done What testing was considered but not performed or refused? (CT, X-rays, U/S, labs)? Why? @ -None What meds were considered but not given or refused? Why? @ -None Did you discuss the management of the patient with other professionals (professionals i.e. BRADLEY Low, LINK TRAINER OPERATOR, lab, RT, psych nurse, social work supervisor, leadership recruiter, teacher, juvenile officer, patient case manager)? Give summary @ -No Was smoking cessation discussed for >3mins.? @ -No Was critical care preformed (if so, how long)? @ -No Were there social determinants of health that impacted care today? How? (Homelessness, low income, unemployed, alcoholism, drug addiction, transportation, low edu. Level, literacy, decrease access to med. care, correction, rehab)? @ -No Was there de-escalation of care discussed even if they declined (Discuss DNR or withdrawal of care, Hospice)? DNR status @ -No What co-morbidities impacted this encounter? (DM, HTN, Smoking, COPD, CAD, Cancer, CVA, ARF, Chemo, Hep., AIDS, mental health diagnosis, sleep apnea, morbid obesity)? @ -None Was patient admitted / discharged? Hospital course, mention meds given and route, prescriptions, significant lab abnormalities, going to OR and other pertinent info. @ -Based on the patient's presentation and physical exam, presents with acute on chronic back pain. Has a history of extensive low back pain with multiple surgeries. We will obtain CT imaging of the lumbar spine and patient will be administered analgesia medications. Patient is in agreement this plan. Vital signs within acceptable limits. No concern for cauda equina syndrome at this time. CT imaging shows the chronic degenerative changes but no obvious acute process. Updated the patient. She will be discharged home at this time. Recommended follow-up with her spinal surgeon she was in agreement this plan. I instructed the patient to follow up with their PCP in the next 1-3 days. I explained that the patient should return to the emergency department if they experience any worsening symptoms. Strict return precautions were discussed with the patient. The patient expressed understanding of these instructions. I answered all questions that the patient had. The patient was discharged home in good condition with their prescriptions and follow up information. Undiagnosed new problem with uncertain prognosis? @ -No Drug Therapy requiring intensive monitoring for toxicity (Heparin, Nitro, Insulin, Cardizem)? @ -No Were any procedures done? @ -No Diagnosis/symptom? @ -Chronic low back pain Acute, or Chronic, or Acute on Chronic? @ -Acute on chronic Uncomplicated (without systemic symptoms) or Complicated (systemic symptoms)? @ -Uncomplicated Side effects of treatment? @ -No Exacerbation, Progression, or Severe Exacerbation? @ -No Poses a threat to life or bodily function? How? (Chest pain, [place], [place], pneumonia, PE, COPD, DKA, ARF, appy, cholecystitis, CVA, Diverticulitis, Homicidal, Suicidal, threat to staff... and all critical care pts) @ -No Disposition Clinical Impression: Chronic back pain Disposition: HOME SELF-CARE Condition: Good Instructions (If sedation given, give patient instructions): Chronic Back Pain (DC) Is patient prescribed a controlled substance at d/c from ED?: No Referrals: Shaun Rodriguez MD [Primary Care Provider] - 1-2 days Time of Disposition: 13:21
[2024-04-17 13:35] VITALS: BP 148/74; PULSE 68; RESP 18; TEMP 98
== END 2024-04-17 13:46 | disposition home or self-care (01) ==
LOC: EC 09:49
CPT/HCPCS: 72131; 96372; 99284

== ENCOUNTER 2024-09-01 22:18 | Emergency (ER) | payer OTHER ==
[2024-09-01] MEDS: ACETAMINOPHEN TAB 500 MG TAB PO STA (23:39)
[2024-09-01] MEDS: OSELTAMIVIR 75 MG CAP PO STA (23:39)
[2024-09-01] MEDS: KETOROLAC 15 MG/ML 1 ML VIAL IM STA (23:40)
[2024-09-02 00:40] LABS: Influenza A Not Detected (Not Detectd); Influenza B Not Detected (Not Detectd); RSV Not Detected (Not Detectd)
[2024-09-02 00:49] VITALS: RESP 16
--- NOTE | 2024-09-02 00:59 | ED ---
General Adult HPI - General Chief complaint: Weakness Stated complaint: Weakness,Headaches Time Seen by Provider: 09/01/24 23:07 Source: patient Mode of arrival: ambulatory Limitations: no limitations - History of Present Illness Initial comments: Pt is a 58 y/ female hx smoking, presenting today for cold symptoms x 1 day. Endorses associated malaise, chills, non productive cough, generalized weakness and mild POWERS. 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 Denies numbess, focal weakness, chest pain, shortness of breath/ GINA, sore throat, abdominal pain, nausea, vomiting, diarrhea, melena, dysuria, urinary frequency or hematuria. Currently denies dizziness. First fever was noted here in the emergency department. - Related Data Previous Rx's Medication Instructions Recorded Ibuprofen [Motrin] 800 mg PO Q8H PRN #21 tab 02/13/21 Lidocaine 5% Patch [Lidoderm 5% 1 patch TOPICAL DAILY #7 patch 02/13/21 Patch] methocarbamoL [Robaxin-750] 1,500 mg PO Q8HR #42 tablet 02/13/21 Albuterol Inhaler [Ventolin Hfa 1 puff INHALATION RT-TID #8 gm 04/26/21 Inhaler] Doxycycline Hyclate [Vibramycin] 100 mg PO BID 7 Days #14 cap 04/26/21 predniSONE [Deltasone] 40 mg PO DAILY 5 Days #10 tab 04/26/21 Cyclobenzaprine [Flexeril] 10 mg PO TID PRN #20 tab 02/23/22 Lidocaine 5% Patch [Lidoderm] 1 patch TOPICAL DAILY #10 patch 03/27/23 methocarbamoL [Robaxin-750] 1,500 mg PO TID PRN #30 tab 05/04/23 predniSONE 50 mg PO DAILY 5 Days #5 tab 05/04/23 HYDROcodone/APAP 7.5-325MG [[place] 1 tab PO Q6HR PRN 3 Days #12 tab 05/22/23 7.5-325] Cephalexin [Keflex] 500 mg PO Q6HR #40 cap 05/30/23 HYDROcodone/APAP 7.5-325MG [[place] 1 tab PO Q6HR PRN 3 Days #12 tab 06/10/23 7.5-325] Cyclobenzaprine [Flexeril] 10 mg PO TID PRN #15 tab 07/11/23 Ketorolac [Toradol] 10 mg PO Q6HR PRN #15 tab 08/29/23 methocarbamoL [Robaxin-750] 1,500 mg PO TID PRN #30 tab 08/29/23 Nirmatrelvir/Ritonavir [Paxlovid 1 each PO BID 5 Days #10 each 09/02/24 300-100 mg Dose Pack] Allergies Allergy/AdvReac Type Severity Reaction Status Date / Time amoxicillin Allergy Dyspnea Verified 09/01/24 22:23 Penicillins Allergy Unknown Verified 09/01/24 22:23 sulfamethoxazole Allergy Unknown Verified 09/01/24 22:23 [From Bactrim] Review of Systems ROS Statement: Those systems with pertinent positive or pertinent negative responses have been documented in the HPI. ROS Other: All systems not noted in ROS Statement are negative. Past Medical History Past Medical History: Asthma Additional Past Medical History / Comment(s): DDD, chronic back pain History of Any Multi-Drug Resistant Organisms: None Reported Past Surgical History: Section, Hysterectomy Additional Past Surgical History / Comment(s): pain services procedures, back surgery 01/2019 Past Anesthesia/Blood Transfusion Reactions: No Reported Reaction Past Psychological History: Depression Smoking Status: Current every day smoker Past Alcohol Use History: None Reported Past Drug Use History: None Reported General Exam - General Exam Comments Initial Comments: PE: CONSTITUTIONAL: No apparent distress, well appearing, nontoxic SKIN: Warm, dry, no jaundice, hives or petechiae EYES: Pupils are equally round, extraocular movements intact without nystagmus, clear conjunctiva, non-icteric sclera HENT: Normocephalic, atraumatic, mildly dry mucus membranes, posterior oropharynx mildly erythematous with scant tonsillar exudates NECK: , Full range of motion, normal appearance PULMONARY: Clear to auscultation without wheezes, rhonchi, or rales, normal excursion, no accessory muscle use and no stridor CARDIOVASCULAR: Regular rate, rhythm, normal S1 and S2. No appreciated murmurs, rubs or gallops. Strong radial pulses with intact distal perfusion. No lower extremity edema GASTROINTESTINAL: Soft, active bowel sounds throughout, non-tender, non- distended, no palpable masses, no rebound or guarding. No hepatosplenomegaly MUSCULOSKELETAL: Extremities have no gross deformity, no edema, redness, or swelling. No calf swelling NEUROLOGIC:_a/o x 3, GCS 15, normal mentation and speech. Moves all extremities x 4 without motor or sensory deficit PSYCHIATRIC:_normal mood and affect, thought process is clear and linear Limitations: no limitations Course Vital Signs 09/01/24 09/02/24 09/02/24 22:20 00:48 01:42 Temperature 100.7 F H 99.0 F 98.0 F Pulse Rate 118 H 76 85 Respiratory 20 16 16 Rate Blood Pressure 132/85 116/56 114/68 O2 Sat by Pulse 97 94 L 95 Oximetry Medical Decision Making - Medical Decision Making Was pt. sent in by a medical professional or institution (, PA, DIRECTOR OF CONVENTION SERVICES, urgent care, hospital, or custodial...) When possible be specific @ -No Did you speak to anyone other than the patient for history (EMS, parent, family, police, friend...)? What history was obtained from this source @ -No Did you review nursing and triage notes (agree or disagree)? Why? @ -I reviewed nursing and triage notes Were old charts reviewed (outside hosp., previous admission, EMS record, old EKG, old radiological studies, urgent care reports/EKG's, custodial records)? Report findings @ -Medical records reviewed-Last visit was on 04/17/2024 for chronic back pain CT done at that time showed DJD Differential Diagnosis (chest pain, altered mental status, abdominal pain women, abdominal pain men, vaginal bleeding, weakness, fever, dyspnea, syncope, headac he, dizziness, GI bleed, back pain, seizure, CVA, palpatations, mental health, musculoskeletal)? @Differential diagnosis remains broad over top considerations include COVID-19, influenza, RSV, other upper respiratory viral illness, strep pharyngitis, viral pharyngitis, tonsillitis. This is not all-inclusive list EKG interpreted by me (3pts min.). @ -As above X-rays interpreted by me (1pt min.). @ -None done CT interpreted by me (1pt min.). @ -None done U/S interpreted by me (1pt. min.). @ -None done What testing was considered but not performed or refused? (CT, X-rays, U/S, labs)? Why? I did consider and discussed with patient obtaining basic labs and EKG however symptoms and exam are highly consistent with a viral upper respiratory infection, patient politely declined additional labs beyond viral and strep throat testing What meds were considered but not given or refused? Why? @I did offer the patient IV fluid administration as she does appear mildly dehydrated however patient is tolerating p.o. intake and preferred oral rehydration therapy Did you discuss the management of the patient with other professionals (professionals i.e. Dr., PA, DIRECTOR OF CONVENTION SERVICES, lab, RT, psych nurse, social and political studies professor, outdoor advertising leasing agent, teacher, adult probation officer, caseworker protective services)? Give summary @ -No Was smoking cessation discussed for >3mins.? @ -No Was critical care preformed (if so, how long)? @ -No Were there social determinants of health that impacted care today? How? (Homelessness, low income, unemployed, alcoholism, drug addiction, transportation, low edu. Level, literacy, decrease access to med. care, care home, rehab)? @ -No Was there de-escalation of care discussed even if they declined (Discuss DNR or withdrawal of care, Hospice)? @ -No What co-morbidities impacted this encounter? (DM, HTN, Smoking, COPD, CAD, Cance r, CVA, ARF, Chemo, Hep., AIDS, mental health diagnosis, sleep apnea, morbid obesity)? @ -None Was patient admitted / discharged? Hospital course, mention meds given and route, prescriptions, significant lab abnormalities, going to OR and other pertinent info. @Discharge-this is a pleasant 58-year-old female presenting today for cold-like symptoms. She is mildly febrile with temp 100.7 and tachycardic heart rate 117 on arrival, I suspect tachycardia secondary to fever. Exam significant for mildly erythematous posterior oropharynx with scant exudates on the tonsils, her lungs are clear to auscultation bilaterally and abdomen is soft and nontender. Exam is consistent with viral URI. Discussed with patient plan for viral testing, Toradol, Tylenol and strep throat testing. She is agreeable plan. Patient tested positive for COVID-19. I updated her to these findings. I offered her Paxlovid. She has no history of renal disease or liver disease requiring dosage adjustments. Paxlovid will be sent to her pharmacy. I discussed with the patient specific signs and symptoms to monitor for warranting return to the emergency department. In my medical judgment there is currently no evidence of an immediate life- threatening or surgical condition. Discharge is therefore indicated at this time. Discharge treatment instructions, follow up instructions, and appropriate emergency department return precautions were discussed with the patient and/or medical decision maker. Patient and/or medical decision maker expressed understanding of and agreed with the treatment plan, follow up instructions, and emergency department return precaution. All patient's and/or medical decision maker's questions were answered. Undiagnosed new problem with uncertain prognosis? @ -No Drug Therapy requiring intensive monitoring for toxicity (Heparin, Nitro, Insulin, Cardizem)? @ -No Were any procedures done? @ -No Diagnosis/symptom? @COVID 19 Acute, or Chronic, or Acute on Chronic? @Acute Uncomplicated (without systemic symptoms) or Complicated (systemic symptoms)? @ -Complicated Side effects of treatment? @ -No Exacerbation, Progression, or Severe Exacerbation? @ -No Poses a threat to life or bodily function? How? (Chest pain, [place], [place], pneumonia, PE, COPD, DKA, ARF, appy, cholecystitis, CVA, Diverticulitis, Homicidal, Suicidal, threat to staff... and all critical care pts) @ -No - Lab Data Lab Results 09/01/24 09/01/24 Range/Units 23:38 23:38 Influenza Type A (PCR) Not Detected (Not Detectd) Influenza Type B (PCR) Not Detected (Not Detectd) RSV (PCR) Not Detected (Not Detectd) SARS-CoV-2 (PCR) Detected A (Not Detectd) Group A Strep (PCR) NOT DETECTED (Not Detectd) Disposition Clinical Impression: COVID-19 Disposition: HOME SELF-CARE Condition: Good Instructions (If sedation given, give patient instructions): COVID-19 (Coronavirus Disease 2019) (ED), How to Recover from COVID-19 at Home (ED) Additional Instructions: Every disease is a spectrum and a small chance still exists that a serious condition could develop, for this reason, please monitor yourself closely for new, changing or worsening symptoms, symptoms that do not improve in 72 hours, difficulty in breathing, chest pain, coughing up blood or thick sputum, [fever greater than 5 days], inability to tolerate/keep down fluids or your medications, inability to follow up with outpatient providers as instructed and should you experience these symptoms or should you have any further concerns for your wellbeing please return to the ED or call 911 immediately. Please drink plenty of fluids and get plenty of rest. Fevers and bodyaches can be treated with medications listed below. Your pain can be treated with ibuprofen and acetaminophen. You can take up to 400-600 mg of ibuprofen (Advil, Motrin) 3 times daily (every 8 hours) but can also use lower doses if this relieves your pain. Some people prefer naproxen (Aleve, Naprosyn) which can be taken in doses of 500 mg up to twice a day. Do not take both of these medicines together, and do not combine either with ketorolac (Toradol), meloxicam (Mobic), or indomethacin (Tivorbex). Some people can develop stomach discomfort with higher doses of either ibuprofen or naproxen, if this develops decrease your dose or stop taking it. If you need to take this dose daily for more than a week, please schedule an appointment for r e-evaluation with your PCP. Please take these medications with food. You can take up to 1000 mg of acetaminophen (Tylenol) every 6 hours. Be careful as this is included in some medicines like Nyquil, [place], Percocet, Vicodin, STANBACK, Goody's Powders, and Excedrin. You can also use lidocaine patches for topical pain. You can purchase 4% patches over the counter at most drug stores. These can be helpful for pain from your muscles or bones. PLEASE call your primary care physician as soon as possible to arrange / discuss plan for followup appointment. Appointment in the next 1-3 days is strongly encouraged if possible. PLEASE let us know here before you leave if there is anything further we can do to be of any assistance. Take care and feel Better! Prescriptions: Nirmatrelvir/Ritonavir [Paxlovid 300-100 mg Dose Pack] 1 each PO BID 5 Days #10 each Is patient prescribed a controlled substance at d/c from ED?: No Referrals: Shaun Rodriguez MD [Primary Care Provider] - 1-2 days
[2024-09-02 01:44] VITALS: BP 114/68; PULSE 85; TEMP 98
== END 2024-09-02 01:42 | disposition home or self-care (01) ==
LOC: EC 22:18
DX: U07.1 COVID-19 (principal); F17.200 Nicotine dependence, unspecified, uncomplicated; Z88.0 Allergy status to penicillin; Z88.1 Allergy status to other antibiotic agents; Z88.2 Allergy status to sulfonamides
CPT/HCPCS: 87651; 87636; 99285; 96372; J1885